=== PATIENT | male | born 1940 | race Caucasian/White ===

== ENCOUNTER → 2016-10-03 | Outpatient (CLI) | payer OTHER ==
[~2016-10-03] MED LIST: FAMO20TA11 PO
[2016-10-03 14:11] LABS: ESTIMATED AVERAGE GLUCOSE 148 mg/dl; HA1C FLAG Normal (Normal)
[2016-10-03 14:19] LABS: CALCIUM 9.9 mg/dl (8.5-10.1)
[2016-10-03 14:23] LABS: BLOOD UREA NITROGEN 21 mg/dl (7-18); BUN/CREATININE RATIO 17.3 (10-20); CARBON DIOXIDE 25 mmol/L (21-32); CHLORIDE 104 mmol/L (98-107); CHOLESTEROL 172 mg/dl (0-200); GLUCOSE 136 mg/dl (70-99); POTASSIUM 4.2 mmol/L (3.5-5.1); SODIUM 140 mmol/L (136-145); TRIGLYCERIDES 179 mg/dl (0-150); VERY LOW DENSITY LIPOPROT CALC 36 mg/dl
[2016-10-03 14:28] LABS: CHOLESTEROL/HDL RATIO 4.2; HDL CHOLESTEROL 41 mg/dl
== END | disposition home or self-care (01) ==
LOC: C.LABSPEC 12:24
PROVIDERS: ATTEND Internal Medicine
DX: Z00.00 Encounter for general adult medical examination without abnormal findings (principal); E11.65 Type 2 diabetes mellitus with hyperglycemia; E78.5 Hyperlipidemia, unspecified

== ENCOUNTER → 2017-04-05 | Outpatient (CLI) | payer OTHER ==
[2017-04-05 13:16] LABS: ESTIMATED AVERAGE GLUCOSE 154 mg/dl; HA1C FLAG Normal (Normal)
[2017-04-05 13:35] LABS: BLOOD UREA NITROGEN 17 mg/dl (7-18); CALCIUM 9.5 mg/dl (8.5-10.1); CARBON DIOXIDE 26 mmol/L (21-32); CHLORIDE 104 mmol/L (98-107); CHOLESTEROL 157 mg/dl (0-200); CREATININE 1.18 mg/dl (0.60-1.40); GLUCOSE 154 mg/dl (70-99); POTASSIUM 4.4 mmol/L (3.5-5.1); SODIUM 138 mmol/L (136-145)
[2017-04-05 13:39] LABS: HDL CHOLESTEROL 39 mg/dl; TRIGLYCERIDES 182 mg/dl (0-150); VERY LOW DENSITY LIPOPROT CALC 36 mg/dl
== END | disposition home or self-care (01) ==
LOC: C.LABSPEC 12:19
PROVIDERS: ATTEND Internal Medicine
DX: E11.9 Type 2 diabetes mellitus without complications (principal); E78.5 Hyperlipidemia, unspecified

== ENCOUNTER → 2017-04-12 | Outpatient (CLI) | payer OTHER ==
[2017-04-12 13:41] LABS: RATIO 51.6 mcg/mg (0-30.0)
== END | disposition home or self-care (01) ==
LOC: C.LABSPEC 12:44
PROVIDERS: ATTEND Internal Medicine
DX: E11.65 Type 2 diabetes mellitus with hyperglycemia (principal)

== ENCOUNTER → 2017-07-14 | Outpatient (CLI) | payer OTHER | END | disposition home or self-care (01) | LOC: C.LABSPEC 12:53 | PROVIDERS: ATTEND Internal Medicine | DX: R30.0 Dysuria (principal) ==

== ENCOUNTER → 2017-09-27 | Outpatient (CLI) | payer OTHER ==
--- NOTE | 2017-09-27 11:18 | DIAGNOSTIC IMAGING REPORT ---
L VENOUS DOPP LOWER EXT UNILAT CLINICAL HISTORY: LT LEG PAIN,SWELLING,R/O DVT pain. Edema. TECHNIQUE: Venous Doppler COMPARISON STUDY: None FINDINGS: The leg is negative for deep venous thrombosis. Venous flow is unremarkable. 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 It is filled with considerable thrombus. Maximum dimensions are approximately 4.6 x 5.5 cm. True luminal dimension at minimum is 1 cm. IMPRESSION: 1. Study is negative for deep venous process. 2. 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 3. It shows considerable thrombus formation within the lumen with a minimal true luminal dimension of 1 cm. The above report was generated using voice recognition software. It may contain grammatical, syntax or spelling errors. Electronically signed by: Gerardo Albert M.D. 09/27/2017 11:17 AM Dictated Date/Time: 09/27/2017 11:13 AM
== END | disposition home or self-care (01) ==
LOC: C.ULTRBC 10:42
PROVIDERS: ATTEND Internal Medicine
DX: M79.605 Pain in left leg (principal); I72.4 Aneurysm of artery of lower extremity

== ENCOUNTER → 2017-10-02 | Outpatient (CLI) | payer OTHER ==
[~2017-10-02] MED LIST changes: +OPTIRAY 320 IV PRN
--- NOTE | 2017-10-02 08:33 | DIAGNOSTIC IMAGING REPORT ---
CT ANGIO AA [facility]MA LE [facility] CT DOSE: 2889.49 mGy.cm CLINICAL HISTORY: popliteal artery aneurysm TECHNIQUE: Unenhanced images were initially acquired. The patient was then scanned in a dynamic helical fashion during intravenous administration 119 cc of Optiray 320. MIP imaging was performed. A dose lowering technique was utilized adhering to the principles of ALARA. COMPARISON STUDY: None. FINDINGS: The lung bases reveal dependent atelectatic changes. There is a 14 mm hypodensity within left hepatic lobe likely representing a cyst. There is a calcified gallstone. No splenic masses are visualized. No pancreatic masses are visualized. No adrenal masses are visualized. No solid renal masses are delineated on this arterial phase study. No renal, ureteral, or bladder calculi are visualized. No adrenal masses are visualized. There is no evidence of bowel obstruction. There is no evidence of free intraperitoneal air. There is colonic diverticulosis. There is a juan mesentery with several borderline enlarged mesenteric lymph nodes. There is a left-sided hydrocele. There is no evidence of abdominal aortic aneurysm or dissection. There are 2 right renal arteries and single left renal artery. There is no evidence of renal artery stenosis. There is no evidence of celiac or superior mesenteric artery stenosis. The inferior mesenteric artery is patent. There is no evidence of common iliac or external iliac artery stenosis. There is no evidence of common femoral artery stenosis. On the right, there is no evidence of superficial femoral artery stenosis. There is no evidence of popliteal artery stenosis. There is three-vessel runoff to the ankle. On the left, there is no evidence of superficial femoral artery stenosis. There is a popliteal artery aneurysm measuring 50 x 49 x 43 mm. The aneurysm is partially thrombosed. The residual lumen measures a maximum of 22 x 16 mm. There is occlusion of the mid to distal posterior tibial artery with reconstitution. There is no evidence of superficial femoral artery stenosis. 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 Electronically signed by: Simone Smith M.D. 10/02/2017 8:31 AM Dictated Date/Time: 10/02/2017 8:21 AM
== END | disposition home or self-care (01) ==
LOC: C.CTS 07:36
PROVIDERS: ATTEND Surgery Vascular Surgery
DX: I72.4 Aneurysm of artery of lower extremity (principal)

== ENCOUNTER → 2017-10-13 | Day surgery (SDC) | payer OTHER ==
[2017-10-09 08:16] VITALS: BMI 29.0
--- NOTE | 2017-10-09 08:48 | PAT Medication Instructions ---
Service Date October 09, 2017. Current Home Medication List Famotidine (Pepcid), 20 MG PO DAILY PRN Metformin Hcl (Glucophage), 500 MG PO QAM Medication Instructions For Your Scheduled Surgery - Hold the following medications the morning of surgery: Metformin Hcl (Glucophage), 500 MG PO QAM - Take the following medications the morning of surgery with a sip of water: Famotidine (Pepcid), 20 MG PO DAILY PRN (if needed) If you have any questions please call us at [phone] or [phone] or [phone]
--- NOTE | 2017-10-09 09:23 | DIAGNOSTIC IMAGING REPORT ---
CHEST 2 VIEWS ROUTINE CLINICAL HISTORY: Preoperative chest COMPARISON STUDY: No previous studies for comparison. FINDINGS: The cardiac and mediastinal contours are normal. There is no evidence of focal pulmonary consolidation. There is no evidence of failure. No pleural effusions are visualized.[ There is ankylosis of the dorsal spine. IMPRESSION: No active disease in the chest. Electronically signed by: Simone Smith M.D. 10/09/2017 9:21 AM Dictated Date/Time: 10/09/2017 9:21 AM
[2017-10-09 10:51] LABS: BASO % 0.3 %; BASO ABS # 0.02 K/uL (0-0.2); EOS % 1.6 %; EOS ABS # 0.11 K/uL (0-0.5); HEMATOCRIT 44.4 % (42-52); HEMOGLOBIN 15.2 g/dL (14.0-18.0); IG# 0.01 K/uL (0.00-0.02); LYMPH % 23.7 %; LYMPH ABS # 1.61 K/uL (1.2-3.4); MEAN CELL VOLUME 89.7 fL (80-100); MEAN CORPUSCULAR HEMOGLOBIN 30.7 pg (25-34); MEAN CORPUSCULAR HGB CONC 34.2 g/dl (32-36); MEAN PLATELET VOLUME 9.4 fL (7.4-10.4); MONO % 7.7 %; MONO ABS # 0.52 K/uL (0.11-0.59); NEUT % 66.6 %; NEUT ABS # 4.52 K/uL (1.4-6.5); PLATELET COUNT 205 K/uL (130-400); RED CELL DISTRIBUTION WIDTH CV 14.1 % (11.5-14.5); RED CELL DISTRIBUTION WIDTH SD 46.1 fL (36.4-46.3); WHITE BLOOD COUNT 6.79 K/uL (4.8-10.8)
[2017-10-09 10:59] LABS: PTT PATIENT 26.6 SECONDS (21.0-31.0)
[2017-10-09 11:07] LABS: CREATININE 1.04 mg/dl (0.60-1.40); POTASSIUM 4.7 mmol/L (3.5-5.1)
[2017-10-13] VITALS (10 sets, daily range): BP systolic 152–178; BP diastolic 84–92; PULSE 56–73; TEMP 36.6–36.8; O2SAT 97–98; Ht 180.3 cm; Wt 95.2 kg
[~2017-10-13] VITALS: Ht 180.3 cm; Wt 95.2 kg
[~2017-10-13] MED LIST changes: +ARISTA ABSORBABLE HEMOSTAT 3GM TOP ONE; +ATROPINE SULFATE 0.1 MG/ML 5ML SYR IV PRN; +CEFAZOLIN 2000MG IV PUSH 15 ML IV SCH; +CLOP1TAB5 PO; +CLOPIDOGREL BISULFATE 75 MG TAB PO ONE; +FENTANYL CITRATE INJ 50 MCG/1 ML 2 ML VIAL IV PRN; +FENTANYL CITRATE INJ 50 MCG/1 ML 2 ML VIAL ONE; +GLC/500 PO; +HEPARIN SOD (PORCINE) 1000 UNIT/ML 10 ML VIAL ONE; +IODIXANOL (VISIPAQUE) 270 MG/ML 150ML IV ONE; +KETOROLAC TROMETHAMINE 30 MG/ML VIAL IV. PRN; +LACTATED RINGER'S 1000ML 1,000 ML IV SCH; +LIDOCAINE HCL 1% 20 ML VIAL SQ ONE; +MIDAZOLAM HCL 1 MG/ML 2ML VIAL ONE; +ONDANSETRON INJ 2 MG/ML 2 ML VIAL IV PRN; -OPTIRAY 320 IV PRN; +OXYCODONE/ACETAMINOPHEN 5-325 TAB PO PRN; +PROPOFOL IV EMULSION 10 MG/ML 20 ML VIAL ONE; +SODIUM CHLORIDE 0.9% 1000ML 1,000 ML IV SCH
--- NOTE | 2017-10-13 05:43 | History and Physical ---
History & Physical Date of Service October 13, 2017. History & Physical CC: Left popliteal artery aneurysm HPI: I had the pleasure of seeing Mr. Mejia for evaluation of his left leg. He is a pleasant 76-year-old gentleman who is retired but according to him works harder now than before. He has developed severe pain in his left lower leg and went to your office. As you know, the ultrasound showed a popliteal artery aneurysm in the left lower extremity. He has no complaints of claudication. 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 He denies any ulcerations in the lower leg. Prior to this, he denies any symptoms of claudication. He also denies any symptoms of cerebrovascular insufficiency. ALLERGIES: None known. MEDICATIONS: Metformin and Pepcid. PAST MEDICAL HISTORY: Positive for diabetes and high blood pressure. PAST SURGICAL HISTORY: Positive for appendectomy. FAMILY HISTORY: Positive for heart disease, cancer, circulatory problems, carotid disease, stroke, kidney disease. SOCIAL HISTORY: Does not smoke, does not drink. REVIEW OF SYSTEMS: Ten systems were reviewed. Other than the HPI complaints, his only other complaint was left joint stiffness and heartburn. PHYSICAL EXAMINATION: The patient is awake, oriented x3. He is in no apparent distress. Normal body habitus. Blood pressure 146/70 on the right, 142/60 on the left. Head and neck within normal limits, no carotid bruits. Lungs are clear. Heart regular rate and rhythm. Abdominal exam is benign. I cannot appreciate any aneurysm or dilatation of the aorta. Femorals are +2 bilaterally. He does have pedal pulses which are easily palpable in both feet. There is good capillary refill in both feet. No ulcerations or severe ischemic changes are noted in either lower extremity. The ultrasound done in the hospital again revealed a popliteal artery aneurysm in the left lower extremity. ASSESSMENT AND PLAN: Left popliteal artery aneurysm. PLAN AND RECOMMENDATION: Patient is admitted for endovascular repair of his popliteal artery aneurysm. I have discussed the risks options and benefits of the procedure with the patient. The patient understands the risks options and benefits and agrees to the procedure.
--- NOTE | 2017-10-13 08:49 | History & Physical Bridge Note ---
H&P Re-Evaluation Bridge Note: I have examined the patient, reviewed the History & Physical and in the interval since the performance of the History & Physical I have noted the following changes of clinical significance: No changes noted
--- NOTE | 2017-10-13 10:24 | [facility] Post Operative Brief Note ---
Immediate Operative Summary Operative Date October 13, 2017. Pre-Operative Diagnosis Left popliteal artery aneurysm Post-Operative Diagnosis Left popliteal artery aneurysm Procedure(s) Performed Endovascular Repair of Left Popliteal Artery Aneurysm Surgeon [place] Hide Inspector And Sorter Surgeon(s) None Estimated Blood Loss 50 Findings Consistent with Post-Op Diagnosis Specimens None Drains None Anesthesia Type MAC Complication(s) none Disposition Accompanied Pt To Recover: no Disposition: Recovery Room / PACU
--- NOTE | 2017-10-13 10:30 | Discharge Instructions ---
Discharge Instructions Date of Service October 13, 2017. Visit Reason for Visit: Left Popliteal Artery Aneurysm Discharge Discharge Diagnosis / Problem: Left popliteal artery aneurysm endovascular repair Discharge Goals Goal(s): Therapeutic intervention Activity Recommendations Activity Limitations: per Instructions/Follow-up section Anesthesia . Post Anesthesia Instructions: If you have had General Anesthesia or IV Sedation: * Do not drive today. * Resume driving when surgeon permits. * Do not make important decisions or sign legal documents today. * Call surgeon for: 1. Temperature elevations greater than 101 degrees F. 2. Uncontrollable pain. 3. Excessive bleeding. 4. Persistent nausea and vomiting. 5. Medication intolerance (nausea, vomiting or rash). * For nausea and vomiting use only clear liquids such as: tea, soda, bouillon until nausea subsides, then gradually increase diet as tolerated. * If you have any concerns or questions, call your surgeon's office. If physician is unavailable and it is an emergency, call 911 or go to the nearest emergency room. . Instructions / Follow-Up Instructions / Follow-Up Call [phone] to schedule a follow up appointment if one not already scheduled. SPECIAL CARE INSTRUCTIONS: Medications: * Continue to take your medications as directed. If you have been given a prescription for Plavix, please fill it immediately and take as directed. Incision Care: * Your puncture site may have some bruising and minor swelling for about one week. * You will have a small dressing covering your puncture site. You may remove the dressing after 24 hours and shower. You may let the warm soapy water run over it, but be sure to dry the puncture site well and keep it dry. * DO NOT IMMERSE THE INCISION IN A TUB/POOL/etc. UNTIL HEALED. * Puncture sites should be kept covered with a band-aid until it begins to heal. Restrictions: * Depending on whether you leg or arm was punctured to access the arteries, you will be required to lay flat, hold your arm still, or both, for about 4 hours after the procedure to prevent bleeding. * Limit your activity for the first 48 hours. You may walk and go up and down steps. Avoid excessive bending or movement at the puncture site. Possible Complications: * Excessive Swelling - after blood flow is improved you may notice increased swelling in the lower legs. This is a normal response. This usually depends on the amount of blockages in the leg, how long they have been there prior to your procedure and how much blood flow was restored. Elevating your legs will help to improve this. Please notify our office ([phone] ) if the swelling does not go away after lying in bed overnight. * Infection/Drainage/Bleeding - Drainage or bleeding from the puncture site should be minimal. If you have excessive bleeding or drainage, call our office ([phone]) right away. * Pain - You may experience some mild pain or soreness at your puncture site. If your pain does not improve, please contact our office ([phone]). Call your doctor and seek emergent treatment if you develop: * Temperature above 101 degrees * Any fever or chills * Any redness or purulent drainage from the puncture site * Any new dusky/blue colored toes or feet with coolness or sharp or aching pain. SKIN IRRITATION: * You may experience some redness and/or swelling in the area where radiation was administered. If any skin irritation occurs, please contact your family physician. FOLLOW UP VISIT: Keep any scheduled doctor appointments. Diet Recommendations Recommended Home Diet: resume previous diet Procedures Procedures Performed: Endovascular Repair of Left Popliteal Artery Aneurysm Pending Studies Studies pending at discharge: no Medical Emergencies . Who to Call and When: Medical Emergencies: If at any time you feel your situation is an emergency, please call 911 immediately. . Non-Emergent Contact Non-Emergency issues call your: Surgeon . . "Provider Documentation" section prepared by Jair Pavon. .
--- NOTE | 2017-10-13 10:43 | [facility] Operative Report ---
Operative Report Operative Date October 13, 2017. Pre-Operative Diagnosis Left popliteal artery aneurysm Post-Operative Diagnosis Left popliteal artery aneurysm Procedure(s) Performed Endovascular Repair of Left Popliteal Artery Aneurysm Surgeon [place] Graduate Research Assistant Surgeon(s) None Estimated Blood Loss 50 Findings Large left popliteal artery aneurysm. No endo-leaks noticed after the stent was placed. Specimens None Drains None Anesthesia Type MAC Complication(s) none Disposition no Recovery Room / PACU Indications This is a 76-year-old gentleman who was found to have left leg pain. Upon exam he was found to have a large left popliteal artery aneurysm. CT scan revealed the aneurysm could be repaired by endovascular means.I have discussed the risks options and benefits of the procedure with the patient. The patient understands the risks options and benefits and agrees to the procedure. Description of Procedure The patient was taken to the angiogram suite and placed in the supine position. After both groins were prepped and draped in a sterile manner local anesthetic was administered to the right groin. A percutaneous puncture was made of the right common femoral artery. A 4 Cymraes sheath was inserted. Injection confirmed the puncture to be in the common femoral artery anteriorly in the right side. 2 Perclose devices were then placed without difficulty. The 4 Cymraes sheath was exchanged to a 9 Cymraes sheath. Left groin was then anesthetized. A percutaneous puncture was made of the left common femoral artery and a 4 Cymraes sheath inserted. Using 035 wire and a rim catheter the left side was cannulated from the right groin. The rim catheter was passed down to the superficial femoral artery. Wire was removed and angiogram was performed. This showed the popliteal artery aneurysm. There is good three- vessel runoff beyond. We then exchanged the rim catheter over an 035 wire to a Quick cross. The Quick cross catheter was passed down through the aneurysm. The wire was removed. Hand-injection showed the quick cross to be true lumen in the distal popliteal. We then exchanged the Quick cross with an 018 wire. The V 18 wire was then passed down into the anterior tibial artery. An 8 x 10 Viabahn stent was then inserted. It was tracked down to the popliteal aneurysm. It went into the aneurysm short distance but cannot track any further. The stent was then removed. We replaced the Quick cross exchanged over a wire to an 035 wire. We then exchanged the right groin 9 Cymraes sheath to a 9 Cymraes [place] long sheath. Once this was done the Quick cross was reinserted and the 035 wire was then exchanged for an 018 and a Quick cross was removed. The 8 x 10 Viabahn stent was then passed down through the popliteal artery without any difficulty. It was then deployed in the distal popliteal artery. The proximal end deployed just above the aneurysm sac. We then inserted a 9 x 75 mm Viabahn stent . We overlapped with the previous placed Viabahn stent and started the new stent just beyond the curve in the previously placed Viabahn stent . This deployed without difficulty. The overlap and the proximal portion of the Viabahn stent end were then ballooned with an 9 x 2 balloon. Completion angiogram showed good flow through the popliteal artery stent. There is no evidence of endoleak's and no filling the aneurysm sac. The 9 Cymraes sheath was then pulled. The puncture site was then closed using the Perclose devices. Adequate hemostasis was noted. We then used the star close device likely to close the puncture in the left groin. Adequate hemostasis was noted also the left groin. Sterile dressings were applied to both groins. The patient left the operation room in satisfactory condition and tolerated the procedure well. All needle and sponge counts were correct at the end of the procedure. I attest to the content of the Intraoperative Record and any orders documented therein. Any exceptions are noted below.
--- NOTE | 2017-10-13 11:46 | Anesthesiology Progress Note ---
Anesthesia Post Op Note Date & Time October 13, 2017 at 11:46 Vital Signs Pain Intensity: 0 Vital Signs Past 12 Hours Date Time Temp Pulse Resp B/P (MAP) Pulse Ox O2 Delivery O2 Flow Rate FiO2 10/13/17 11:10 36.6 73 16 155/84 97 Room Air 10/13/17 11:00 36.4 73 16 166/88 96 Room Air 10/13/17 10:50 69 16 134/89 98 Room Air 10/13/17 10:40 80 16 151/89 98 Oxymask 10 10/13/17 10:34 36.6 84 16 147/99 100 Oxymask 10 10/13/17 07:25 36.8 68 20 168/91 98 Room Air 154/84 Notes Mental Status: alert / awake / arousable, participated in evaluation Pt Amnestic to Procedure: Yes Nausea / Vomiting: adequately controlled Pain: adequately controlled Airway Patency, RR, SpO2: stable & adequate BP & HR: stable & adequate Hydration State: stable & adequate Anesthetic Complications: no major complications apparent
== END | disposition home or self-care (01) ==
LOC: C.ACU 06:36
PROVIDERS: ATTEND Surgery Vascular Surgery
DX: I72.4 Aneurysm of artery of lower extremity (principal); E11.9 Type 2 diabetes mellitus without complications; Z90.49 Acquired absence of other specified parts of digestive tract; Z82.49 Family history of ischemic heart disease and other diseases of the circulatory system; Z82.3 Family history of stroke; Z84.1 Family history of disorders of kidney and ureter

== ENCOUNTER 2018-04-25 16:20 | Inpatient (IN) ==
[2018-04-25] MEDS ORDERED: Heparin IV Standard *NO* Bolus ONE (16:40)
--- NOTE | 2018-04-25 16:42 | Emergency Department Note ---
Entered by Marivel Birmingham acting as a scribe for Kel Boston DO History of Present Illness General Chief complaint: Abnormal Labs/Diagnostic Testing Stated complaint: OCCLUSION OF MID TO DISTAL L FEM ARTERY Time Seen by Provider: 04/25/18 16:28 Source: patient History of Present Illness Provider complaint: abnormal imaging Onset (ago): hour(s) (today) Location: lower extremity and left Maximum Pain Intensity: 0 Quality: + other (arterial occlusion) Associated symptoms: + denies other symptoms (denies abdominal pain); no chest pain and no nausea/vomiting The patient is a 77 year old male who presents to the Emergency Room with abnormal imaging today. The patient states that he had severe pain in his leg 4 days ago and had an ultrasound done today that showed an aterial occlusion of his left leg. He denies having nausea, vomiting, chest pain, and abdominal pain. The patient denies a history of a stroke. He states that he was on blood thinners but was taken off of them about 1 month ago. Home Medications Home Medications Medication Instructions Recorded Confirmed Type Famotidine (Pepcid) 20 mg PO DAILY PRN #0 tab 12/20/12 04/25/18 History METFORMIN HCL (GLUCOPHAGE) 500 mg PO QAM #0 tab 10/09/17 04/25/18 History CLOPIDOGREL BISULFATE (PLAVIX) 75 mg PO DAILY #30 tab 10/13/17 04/25/18 Rx Allergies Allergy/AdvReac Type Severity Reaction Status Date / Time No Known Allergies Allergy Unverified 10/13/17 07:55 Past Med/Surg History Medical History Aneurysm of left popliteal artery (Resolved) Diabetes mellitus, type 2 Family History Other No pertinent family history Social History Current Living Situation: Spouse Other Information That Helps Us Care for You: No Feels Safe at Home: Yes Safety Concerns: Feels Safe At This Time Smoking Status: Never smoker Hx Alcohol Use: No Hx Substance Use: No Beliefs That Will Affect Care: None Preferred Language: Bengali Communication Ability: Effective Review of Systems See HPI for pertinent positives & negatives. and A total of 10 systems reviewed and were otherwise negative Physical Exam Vital Signs Vital Signs - 24 hr 04/25/18 16:25 04/25/18 18:02 04/25/18 18:06 Temperature 36.8 C Temperature Source Oral Sepsis Recent Fever Within 48 Hours No Sepsis Action Taken by Nursing No Action Required Pulse Rate 48 L 85 Pulse Rate [Apical] 82 Pulse Rate [Left Finger] Respiratory Rate 20 20 20 Respiratory Effort / Characteristics Non-Labored Respiratory Depth Normal Normal Respiratory Pattern Blood Pressure 159/73 H 151/99 H Blood Pressure [Left Arm] 151/99 H Blood Pressure Mean 101 Blood Pressure Mean [Left Arm] 116 Blood Pressure Position [Left Arm] Pulse Oximetry 96 95 95 Oxygen Delivery Method Room Air Room Air Room Air 04/25/18 18:44 04/25/18 19:40 04/25/18 21:35 Temperature 36.4 C L 36.4 C L 36.5 C Temperature Source Oral Oral Oral Sepsis Recent Fever Within 48 Hours Sepsis Action Taken by Nursing Pulse Rate Pulse Rate [Apical] Pulse Rate [Left Finger] 71 88 71 Respiratory Rate 12 16 Respiratory Effort / Characteristics Non-Labored Spontaneous Respiratory Depth Normal Respiratory Pattern Regular Blood Pressure Blood Pressure [Left Arm] 171/94 H 188/106 H 188/74 H Blood Pressure Mean Blood Pressure Mean [Left Arm] 119 133 112 Blood Pressure Position [Left Arm] Sitting Pulse Oximetry 98 96 96 Oxygen Delivery Method Room Air Room Air Room Air GENERAL: Patient is awake alert in no acute distress patient is resting comfortably and showing no signs of anxiety EYES: The conjunctivae are clear. The pupils are round and reactive. EARS, NOSE, MOUTH AND THROAT: The nose is without any evidence of any deformity. Mucous membranes are moist tongue is midline NECK: The neck is nontender and supple. RESPIRATORY: Normal respiratory effort is noted there is no evidence of wheezing rhonchi or rales CARDIOVASCULAR: Regular rate and rhythm noted there no murmurs rubs or gallops normal S1 normal S2 GASTROINTESTINAL: The abdomen is soft. Bowel sounds are present in all quadrants. Abdomen is nontender MUSCULOSKELETAL/EXTREMITIES: There is no evidence of gross deformity full range of motion is noted in the hips and shoulders SKIN: There is no pedal edema appreciated. There is no pulses to palpation in the left foot. Left foot is cold compared to the right foot. NEUROLOGIC: Patient is awake alert and oriented x3. Course 1635: Past medical records reviewed. The patient was evaluated in room B11B, and a complete history and physical examination were performed. 1642: I discussed the patient's case with Dr. Pavon-Vascular Surgery who will admit the patient. Consultations Consultation #1: Dr. Pavon-Vascular Surgery Time: 16:42 Administered Medications Heparin Sodium/Dextrose (Heparin Sodium/Dextrose) 25,000 units in 500 mls @ 30 mls/hr IV .[id number] KIRBY; Protocol Stop: 05/25/18 19:14 Last Admin: 04/25/18 18:20 Dose: 1,500 units/hr, 30 mls/hr Discontinued Medications Heparin Sodium/Dextrose () 1 ea N/A ONE ONE; Protocol Stop: 04/25/18 16:41 Last Admin: 04/25/18 20:10 Dose: Not Given Heparin Sodium/Dextrose (Heparin Sodium/Dextrose) Confirm Administered Dose 25, 000 units IV .STK-MED ONE Stop: 04/25/18 17:50 Last Admin: 04/25/18 17:51 Dose: 30 ml Insulin Aspart (Novolog Flexpen) 0 units SC TODAY@2100 ONE; Protocol Stop: 04/25/18 21:01 Last Admin: 04/25/18 20:54 Dose: 1 units Medical Decision Making Differential Diagnosis Differential diagnosis: Etiologies such as DVT, vascular ischemia, radiculopathy, fracture, hematoma/ contusion, myositis, abscess, septic arthritis cellulitis, joint effusion, trauma, lymphedema, idiopathic, CHF, as well as others were entertained. Medical Records Attestation: I reviewed the patient's medical records. Home Medications Current Medication List: was personally reviewed by me Laboratory Data Attestation: I reviewed the patient's lab results. Result diagrams: 04/25/18 17:05 04/25/18 17:05 Lab Results 04/25/18 04/25/18 04/25/18 Range/Units 17:05 17:05 17:05 WBC 8.41 (4.8-10.8) K/uL RBC 5.05 (4.7-6.1) M/uL Hgb 15.5 (14.0-18.0) g/dL Hct 45.1 (42-52) % MCV 89.3 (80-100) fL MCH 30.7 (25-34) pg MCHC 34.4 (32-36) g/dL RDW Std Deviation 46.2 (36.4-46.3) fL RDW Coeff of Maite 14.2 (11.5-14.5) % Plt Count 186 (130-400) K/uL MPV 10.1 (7.4-10.4) fL Immature Gran % (Auto) 0.2 % Neut % (Auto) 66.7 % Lymph % (Auto) 22.8 % Mccormick % (Auto) 8.6 % Eos % (Auto) 1.5 % Baso % (Auto) 0.2 % Immature Gran # (Auto) 0.02 (0.00-0.02) K/uL Neut # (Auto) 5.60 (1.4-6.5) K/uL Lymph # (Auto) 1.92 (1.2-3.4) K/uL Mccormick # (Auto) 0.72 H (0.11-0.59) K/uL Eos # (Auto) 0.13 (0-0.5) K/uL Baso # (Auto) 0.02 (0-0.2) K/uL PT 10.4 (9.0-12.0) Seconds INR 1.0 (0.9-1.1) APTT 28.4 (21.0-31.0) Seconds PTT Ratio 1.1 Sodium 138 (136-145) mmol/L Potassium 3.9 (3.5-5.1) mmol/L Chloride 106 (98-107) mmol/L Carbon Dioxide 25 (21-32) mmol/L Anion Gap 7.0 (3-11) BUN 20 H (7-18) mg/dl Creatinine 1.04 (0.6-1.4) mg/dl Est Cr Clr Drug Dosing 71.8 ml/min Est GFR ( Amer) 80.5 Est GFR (Non-Af Amer) 69.4 BUN/Creatinine Ratio 19.5 (10-20) Glucose 124 H (70-99) mg/dl POC Glucose (70-99) Calcium 9.1 (8.5-10.1) mg/dl Magnesium 2.2 (1.8-2.4) mg/dl Total Bilirubin 0.6 (0.1-1) mg/dl AST 16 (15-37) U/L ALT 19 (12-78) U/L Alkaline Phosphatase 111 (45-117) U/L Troponin I < 0.015 (0-0.045) ng/ml Total Protein 7.5 (6.4-8.2) gm/dl Albumin 3.9 (3.4-5.0) gm/dl Globulin 3.6 (2.5-4.0) gm/dl Albumin/Globulin Ratio 1.1 (0.9-2) TSH 2.810 (0.300-4.500) uIu/ml Urine Color Urine Appearance (Clear) Urine pH (4.5-7.5) Ur Specific [place] (1.000-1.030) Urine Protein (Negative) Urine Glucose (UA) (Negative) Urine Ketones (Negative) Urine Blood (Negative) Urine Nitrite (Negative) Urine Bilirubin (Negative) Urine Urobilinogen (Negative) Ur Leukocyte Esterase (Negative) 04/25/18 04/25/18 04/25/18 Range/Units 17:30 19:31 20:47 WBC (4.8-10.8) K/uL RBC (4.7-6.1) M/uL Hgb (14.0-18.0) g/dL Hct (42-52) % MCV (80-100) fL MCH (25-34) pg MCHC (32-36) g/dL RDW Std Deviation (36.4-46.3) fL RDW Coeff of Maite (11.5-14.5) % Plt Count (130-400) K/uL MPV (7.4-10.4) fL Immature Gran % (Auto) % Neut % (Auto) % Lymph % (Auto) % Mccormick % (Auto) % Eos % (Auto) % Baso % (Auto) % Immature Gran # (Auto) (0.00-0.02) K/uL Neut # (Auto) (1.4-6.5) K/uL Lymph # (Auto) (1.2-3.4) K/uL Mccormick # (Auto) (0.11-0.59) K/uL Eos # (Auto) (0-0.5) K/uL Baso # (Auto) (0-0.2) K/uL PT (9.0-12.0) Seconds INR (0.9-1.1) APTT (21.0-31.0) Seconds PTT Ratio Sodium (136-145) mmol/L Potassium (3.5-5.1) mmol/L Chloride (98-107) mmol/L Carbon Dioxide (21-32) mmol/L Anion Gap (3-11) BUN (7-18) mg/dl Creatinine (0.6-1.4) mg/dl Est Cr Clr Drug Dosing ml/min Est GFR ( Amer) Est GFR (Non-Af Amer) BUN/Creatinine Ratio (10-20) Glucose (70-99) mg/dl POC Glucose 143 H 155 H (70-99) Calcium (8.5-10.1) mg/dl Magnesium (1.8-2.4) mg/dl Total Bilirubin (0.1-1) mg/dl AST (15-37) U/L ALT (12-78) U/L Alkaline Phosphatase (45-117) U/L Troponin I (0-0.045) ng/ml Total Protein (6.4-8.2) gm/dl Albumin (3.4-5.0) gm/dl Globulin (2.5-4.0) gm/dl Albumin/Globulin Ratio (0.9-2) TSH (0.300-4.500) uIu/ml Urine Color Yellow Urine Appearance Clear (Clear) Urine pH 5.0 (4.5-7.5) Ur Specific [place] 1.010 (1.000-1.030) Urine Protein Negative (Negative) Urine Glucose (UA) Negative (Negative) Urine Ketones Negative (Negative) Urine Blood Negative (Negative) Urine Nitrite Negative (Negative) Urine Bilirubin Negative (Negative) Urine Urobilinogen Negative (Negative) Ur Leukocyte Esterase Negative (Negative) Imaging Data Radiologist's Impression: Radiology results as stated below per my review and the radiologist's interpretation: XR chest 1V portable CLINICAL HISTORY: weakness dyspnea COMPARISON STUDY: No previous studies for comparison. FINDINGS: The bones soft tissues and hemidiaphragms are normal. The cardiomediastinal silhouette is normal. The lungs are clear. The pulmonary vasculature is normal. IMPRESSION: Negative chest. The above report was generated using voice recognition software. It may contain grammatical, syntax or spelling errors. Electronically signed by: Gerardo Albert M.D. 04/25/2018 5:24 PM ECG Data Attestation: I personally reviewed and interpreted this ECG as follows: Indication: weakness Rate (beats per minute): 87 Rhythm: sinus rhythm Findings: + PAC and + PVC; no ST depression and no ST elevation Comparison ECG Date: from (10/09/17) Change: the following changes noted (ectopy is new otherwise no change ) Blood Pressure Blood Pressure Findings: Elevated blood pressure Blood Pressure Disposition: further management by hospitalist JESUS Elizondo The patient is a 77-year-old male who started noticing pain in his lower extremity on Monday. The patient has a history of a graft in his left leg artery. The patient was seen by his primary care physician and had an outpatient arterial Doppler obtained. The report was sent to the primary care physician and the patient was sent to the emergency department for further evaluation. The patient was found to have an acute arterial occlusion. He does have a history of a bypass in this leg. The patient was started on heparin in the emergency department. I discussed the patient's laboratory results with him. I also discussed his case with his primary vascular surgeon. The patient was reevaluated multiple times. The patient was to be admitted by his primary vascular specialist. Impression & Plan Acute occlusion of artery Critical Care Time I have personally spent greater than 35 minutes of critical care time in the direct management of this patient. This includes bedside care, interpretation of diagnostic studies, and testing, discussion with consultants, patient, and family members, and other required patient management activities. This 35 minutes is in excess of all separately billable procedures. Critical Care Time: Yes Total Critical Care Time: 35 Discharge Plan Visit Data *Final* Discharge Date/Time: 04/25/18 18:06 Chief Complaint: Abnormal Labs/Diagnostic Testing Stated Complaint: OCCLUSION OF MID TO DISTAL L FEM ARTERY ED Provider: Kel Boston Discharge Problem: Acute occlusion of artery Patient Disposition: Admitted As Inpatient Discharge Instructions Interventions: ED Discharge Assessment Last Done: 04/25/18 18:06 The scribe's documentation has been prepared under my direction and personally reviewed by me in its entirety. I confirm that the note above accurately reflects all work, treatment, procedures, and medical decision making performed by me.
[2018-04-25] MEDS ORDERED: OXYCODONE/ACETAMINOPHEN 5mg/325mg TAB PO PRN (17:02)
[2018-04-25] MEDS ORDERED: MoRPHine SULFATE 4 MG/ML 1 ML CARP\\VIAL IV PRN (17:02)
[2018-04-25] MEDS ORDERED: ACETAMINOPHEN 325 MG TAB PO PRN (17:02)
--- NOTE | 2018-04-25 17:26 | XRay Report ---
XR chest 1V portable CLINICAL HISTORY: weakness dyspnea COMPARISON STUDY: No previous studies for comparison. FINDINGS: The bones soft tissues and hemidiaphragms are normal. The cardiomediastinal silhouette is n ormal. The lungs are clear. The pulmonary vasculature is normal. IMPRESSION: Negative chest. The above report was generated using voice recognition software. It may contain grammatical, syntax or spelling errors. Electronically signed by: Gerardo Albert M.D. 04/25/2018 5:24 PM
[2018-04-25 17:27] LABS: Basophils # (auto) 0.02 K/uL (0-0.2); Basophils % (auto) 0.2 %; Eosinophils # (auto) 0.13 K/uL (0-0.5); Eosinophils % (auto) 1.5 %; Hematocrit (blood only) 45.1 % (42-52); Hemoglobin 15.5 g/dL (14.0-18.0); Immature Granulocytes # (auto) 0.02 K/uL (0.00-0.02); Immature Granulocytes % (auto) 0.2 %; Lymphocytes # (auto) 1.92 K/uL (1.2-3.4); Lymphocytes % (auto) 22.8 %; Mean Corpuscular Hgb Conc 34.4 g/dL (32-36); Mean Corpuscular Volume 89.3 fL (80-100); Mean Platelet Volume 10.1 fL (7.4-10.4); Monocytes # (auto) 0.72 K/uL (0.11-0.59); Monocytes % (auto) 8.6 %; Neutrophils % (auto) 66.7 %; Platelet Count 186 K/uL (130-400); RDW Coefficient of Variation 14.2 % (11.5-14.5); RDW Standard Deviation 46.2 fL (36.4-46.3); Red Blood Count 5.05 M/uL (4.7-6.1); White Blood Count 8.41 K/uL (4.8-10.8)
[2018-04-25 17:40] LABS: Partial Thromboplastin Ratio 1.1; Partial Thromboplastin Time 28.4 Seconds (21.0-31.0); Prothrombin Time 10.4 Seconds (9.0-12.0)
[2018-04-25 17:45] LABS: Alanine Aminotransferase 19 U/L (12-78); Albumin Level 3.9 gm/dl (3.4-5.0); Aspartate Aminotransferase 16 U/L (15-37); BUN Creatinine Ratio 19.5 (10-20); Blood Urea Nitrogen 20 mg/dl (7-18); Calcium 9.1 mg/dl (8.5-10.1); Carbon Dioxide 25 mmol/L (21-32); Chloride 106 mmol/L (98-107); Creatinine Clr Calc Pharmacy 71.8 ml/min; Est GFR (African American) 80.5; Est GFR (Non-African American) 69.4; Glucose 124 mg/dl (70-99); Magnesium 2.2 mg/dl (1.8-2.4); Potassium 3.9 mmol/L (3.5-5.1); Sodium 138 mmol/L (136-145)
[2018-04-25] MEDS ORDERED: HEPARIN 25000 UNIT/500 ML D5W IV ONE (17:49)
[2018-04-25 17:51] LABS: Appearance Urine Clear (Clear); Bilirubin Urine Negative (Negative); Color Urine Yellow; Glucose Urine UA Negative (Negative); Ketones Urine Negative (Negative); Leukocyte Esterase Urine Negative (Negative); Nitrite Urine Negative (Negative); Protein Urine Negative (Negative); Urobilinogen Urine Negative (Negative)
[2018-04-25 17:56] LABS: Albumin Globulin Ratio 1.1 (0.9-2); Alkaline Phosphatase 111 U/L (45-117); Bilirubin,Total 0.6 mg/dl (0.1-1); Globulin 3.6 gm/dl (2.5-4.0); Total Protein 7.5 gm/dl (6.4-8.2); Troponin I < 0.015 ng/ml (0-0.045)
[2018-04-25] MEDS: HEPARIN SODIUM/DEXTROSE 25,000 UNITS/500 ML BAG IV SCH (18:20)
[2018-04-25] MEDS ORDERED: PHARMACY GLYCEMIC MGMT CONSULT PRN (19:08)
[2018-04-25] MEDS ORDERED: CARBOHYDRATES FOR HYPOGLYCEMIA PO PRN (19:22)
[2018-04-25] MEDS ORDERED: GLUCAGON FOR INJ 1 MG VIAL IM PRN (19:22)
[2018-04-25] MEDS ORDERED: GLUCOSE 10 TABS/TUBE PO PRN (19:22)
[2018-04-25] MEDS ORDERED: GLUCOSE 40% GEL 15 GM TUBE PO PRN (19:22)
[2018-04-25] MEDS ORDERED: DEXTROSE 50% 50 ML SYRINGE IV PRN (19:22)
[2018-04-25] MEDS ORDERED: INSULIN ASPART 100 UNITS/ML 3 ML PEN SC ONE (21:00)
[2018-04-26] LABS: Partial Thromboplastin Time 51.5 Seconds (21.0-31.0)
[2018-04-26] MEDS: INSULIN ASPART 100 UNITS/ML 3 ML PEN SC SCH ×5 (00:39→20:29)
[2018-04-26] MEDS ORDERED: CEFAZOLIN 2000MG 2,000 MG/15 ML SYR IV SCH (06:00)
[2018-04-26] MEDS ORDERED: CEFAZOLIN 1000MG 1,000 MG/7.5 ML SYR IV SCH (06:00)
[2018-04-26] MEDS ORDERED: SODIUM CHLORIDE 0.9% 1000ML 1,000 ML IV SCH (06:00)
--- NOTE | 2018-04-26 06:05 | History & Physical Report ---
Date of Service April 25, 2018 Assessment & Plan (1) Left popliteal artery occlusion: Patient will undergo thrombectomy with arteriography of the left lower extremity and possible intervention or bypass. I have discussed the risks options and benefits of the procedure with the patient. The patient understands the risks options and benefits and agrees to the procedure. History of Present Illness Chief Complaint: Left leg pain Primary Care Provider: Tonny Khan MD Patient is a 77 y/o white male who had a left popliteal stent for a popliteal aneurysm done in the past. He developed sudden onset of left calf pain 4 days prior to this. It lasted a short time then resolved. He now has claudication and a cold feeling foot with a slight numb feeling. He denies rest pain. He does state that the left foot is paler than the right. He denies chest pain or any palpatations. USN done showed an occluded distal SFA and popliteal with anterior tibial runoff. Allergies Allergy/AdvReac Type Severity Reaction Status Date / Time No Known Allergies Allergy Unverified 10/13/17 07:55 Home Medications Home Medications Medication Instructions Recorded Confirmed Type Famotidine (Pepcid) 20 mg PO DAILY PRN #0 tab 12/20/12 04/25/18 History METFORMIN HCL (GLUCOPHAGE) 500 mg PO QAM #0 tab 10/09/17 04/25/18 History CLOPIDOGREL BISULFATE (PLAVIX) 75 mg PO DAILY #30 tab 10/13/17 04/25/18 Rx Past Med/Surg History Medical History Aneurysm of left popliteal artery (Resolved) Diabetes mellitus, type 2 Family History Other No pertinent family history Social History Current Living Situation: Spouse Other Information That Helps Us Care for You: No Feels Safe at Home: Yes Safety Concerns: Feels Safe At This Time Smoking Status: Never smoker Hx Alcohol Use: No Hx Substance Use: No Beliefs That Will Affect Care: None Preferred Language: Swedish Communication Ability: Effective Review of Systems All systems reviewed & are unremarkable except as noted in HPI & below Respiratory: no cough, no chest congestion, no dyspnea, no dyspnea on exertion and no pain on inspiration Cardiovascular: + calf pain (saturday) and + claudication; no chest pain, no chest pain at rest, no chest pain with activity, no dyspnea and no edema Gastrointestinal: no abdominal pain, no bloating, no nausea and no vomiting Musculoskeletal: no muscle weakness Integumentary: no wounds and no unusual bruising Neurologic: no gait abnormality, no localized weakness, no paralysis, no loss of sensation, no numbness, no paresthesia, no radiating pain and no restless legs Psychiatric: no anxiety and no confusion Endocrine: no fatigue Hematologic / Lymphatic: no easy bleeding Allergy / Immunological: as per Subjective / HPI Physical Exam 2 Vital Signs (Past 24 Hours): Last Vital Signs Temp 36.7 C 04/25/18 23:24 Pulse 67 04/25/18 23:24 Resp 18 04/25/18 23:24 BP 144/93 H 04/25/18 23:24 Pulse Ox 96 04/25/18 23:24 Constitutional: WD/WN, vitals as above Neck: trachea midline; neck not short Respiratory: normal respiratory effort, lungs clear to auscultation normal respiratory effort; no respiratory distress Cardiovascular: Rate/Rhythm: regular rate and regular rhythm Vessels: femoral pulses present, posterior tibial pulses present (none on left, palp on right), dorsalis pedis pulses present (none on left, palpable on right) and radial pulses present; no carotid bruit Extremities: normal capillary refill (decreased on left); no edema Gastrointestinal (Abdomen): Inspection/Auscultation: abdomen normal to inspection; abdomen not distended Percussion/Palpation: abdomen soft; abdomen nontender Musculoskeletal: Head/Neck/Chest: normocephalic Extremities: extremities normal to inspection Skin: no ulcers and no wound Neurologic: CN's II-XI intact bilaterally and moves all extremities; no focal motor deficits Speech / Cognition: normal speech Motor/Sensory: normal movement Psychiatric: Orientation: alert and oriented x 3 Lymphatic: no lymphedema
[2018-04-26] MEDS ORDERED: MIDAZOLAM HCL 1 MG/ML 2ML VIAL ONE (07:02)
[2018-04-26] MEDS ORDERED: PROPOFOL IV EMULSION 10 MG/ML 20 ML VIAL IV ONE ×2 (07:02→11:20)
[2018-04-26] MEDS ORDERED: fentaNYL citrate 100 MCG/2 ML VIAL ONE ×2 (07:02→11:18)
[2018-04-26] MEDS ORDERED: LIDOCAINE HCL 2% 2 ML VIAL/AMP(20MG/ML) INFIL ONE (07:02)
--- NOTE | 2018-04-26 08:46 | History & Physical Bridge Note ---
Date of Service April 26, 2018 History & Physical Bridge Note I have examined the patient, reviewed the History & Physical and in the interval since the performance of the History & Physical I have noted the following changes of clinical significance: no changes noted
--- NOTE | 2018-04-26 08:48 | Anesthesiology Consultation ---
Date of Service April 26, 2018 Assessment & Plan (1) Encounter for pre-operative examination: Chart Review Chart Review: Acceptable Risk for Surgery and Patient NOT seen in Pre Admission Testing Consults Requested none NPO Date Last Intake of Fluids: 04/25/18 Time Last Intake of Fluids: 22:00 Date Last Intake of Solids: 04/25/18 Time Last Intake of Solids: 18:30 History Surgery Operation Date: 04/26/18 08:00 Proposed Procedures p Left Lower Extremity Thrombectomy, - Jair Pavon MD s Angiogram with Possible Intervention - Jair Pavon MD Height/Weight Height: 5 ft 11 in Weight: 93.6 kg Allergies Allergy/AdvReac Type Severity Reaction Status Date / Time No Known Allergies Allergy Unverified 10/13/17 07:55 Medications Home Medications Medication Instructions Recorded Confirmed Last Taken Famotidine (Pepcid) 20 mg PO DAILY PRN #0 tab 12/20/12 04/25/18 04/25/18 20mg METFORMIN HCL (GLUCOPHAGE) 500 mg PO QAM #0 tab 10/09/17 04/25/18 04/25/18 500mg CLOPIDOGREL BISULFATE (PLAVIX) 75 mg PO DAILY #30 tab 10/13/17 04/25/18 2 Months Ago ~02/23/18 Active Medications Generic Name Dose Route Start Last Admin Trade Name Freq PRN Reason Stop Dose Admin Heparin Sodium/Dextrose 25,000 units in 500 mls @ 30 mls/hr 04/25/18 19:15 00:55 Heparin Sodium/Dextrose IV 05/25/18 19:14 1,500 units/hr .[id number] KIRBY 30 mls/hr Titration Protocol 1,500 UNITS/HR Sodium Chloride 1,000 mls @ 100 mls/hr 04/26/18 06:00 04/26/18 06:27 Nss 1000ml IV 04/26/18 15:59 100 mls/hr .Q10H KIRBY Administration Insulin Aspart 0 units 04/26/18 00:00 04/26/18 06:40 Novolog Flexpen SC 05/26/18 00:00 Not Given Q6 KIRBY Protocol Beta Cole Beta Cole Taken Within 24 Hours: No Past Medical History Medical History Aneurysm of left popliteal artery (Resolved) Diabetes mellitus, type 2 PVD (peripheral vascular disease) Popliteal artery aneurysm Endovascular repair MAC. 09/2017 Past Family History Family History Other No pertinent family history Past Surgical History Surgical History H/O colonoscopy Past Anesthesia History No Hx of Anesthesia Complications History of PONV No Motion Sickness Screening History of Motion Sickness: No Social History Smoking Status: Never smoker Hx Alcohol Use: No Hx Substance Use: No Exercise / Class Metabolic Activity II 4-5 Yardwork/Stairs/Walk up hill Physical Exam Vital Signs Last Vital Signs Temp 36.9 C 04/26/18 07:55 Pulse 62 04/26/18 07:55 Resp 20 04/26/18 07:55 BP 142/89 H 04/26/18 07:55 Pulse Ox 97 04/26/18 07:55 Testing Electrocardiogram ecg 09/2017. sinus lana. hr 54 Laboratory Results 04/25/18 17:05 PT 10.4 Seconds (9.0-12.0) 04/25/18 17:05 INR 1.0 (0.9-1.1) 04/25/18 17:05 APTT 51.5 Seconds (21.0-31.0) H* 04/25/18 23:27 Urine Color Yellow 04/25/18 17:30 Urine Appearance Clear (Clear) 04/25/18 17:30 Urine pH 5.0 (4.5-7.5) 04/25/18 17:30 Ur Specific Cost 1.010 (1.000-1.030) 04/25/18 17:30 Urine Protein Negative (Negative) 04/25/18 17:30 Urine Glucose (UA) Negative (Negative) 04/25/18 17:30 Urine Ketones Negative (Negative) 04/25/18 17:30 Urine Nitrite Negative (Negative) 04/25/18 17:30 Ur Leukocyte Esterase Negative (Negative) 04/25/18 17:30 04/26/18 04/26/18 04/25/18 07:00 06:18 23:56 POC Glucose 138 H 132 H 125 H
--- NOTE | 2018-04-26 08:50 | Pharmacy Report ---
Glycemic Control Consultation - Date of Service April 26, 2018 - Scope Scope: Glycemic Pharmacist consulted by Dr [] on [date] for glycemic control and to write orders per [facility] inpatient glycemic control protocol - Objective Weight: 93.6 kg Accuchecks BSG (last 24hrs): 04/25/18 04/25/18 04/25/18 17:05 19:31 20:47 Glucose 124 H POC Glucose 143 H 155 H 04/25/18 04/26/18 04/26/18 23:56 06:18 07:00 Glucose POC Glucose 125 H 132 H 138 H Laboratory Data (last 24hrs): 04/25/18 17:05 Potassium 3.9 Carbon Dioxide 25 Anion Gap 7.0 Creatinine 1.04 Est Cr Clr Drug Dosing 71.8 - Recent Pertinent Medications Outpatient Anti-diabetic Regimen: * metformin 500 mg in the morning * A1c = 6.8 % 04/18/18 The patient is currently receiving: * Basal insulin: Lantus -- units every -- hours * Correctional Insulin: Novolog Correction per scale ACHS Goal Range: Low 110 mg/dL - High 140 mg/dL Correction Factor: 25 mg/dL/unit * Prandial insulin: Per carb ratio of 1 unit per -- grams CHO consumed Risk Factors for Insulin Resistance: * Diet: NPO - Assessment & Plan Assessment & Plan: ASSESSMENT: * Ms Mejia is a 77 y/o M with a PMH of well controlled T2DM who presents with calf pain. He was diagnosed with an artery occlusion and will undergo a thrombectomy today. He is currently NPO. Patient was started on weight-based stress of 2 Novolog coverage for yesterday evening. Will provide Lantus 10 units if blood sugar this evening over 160 mg/dL. * Pt is maintained on oral antidiabetic agents as an outpatient * Oral agents are not recommended for inpatient use d/t drug interactions, changing PO intake, and difficulty titrating for acute hyper/hypoglycemia. ADA recommends re-initiating outpatient oral agents 1-2 days prior to discharge if/ when appropriate if they were held on admission. * Will hold oral agents for admission and utilize SQ basal bolus insulin regimen which is the recommended regimen for inpatient glycemic control. * Will initiate weight based insulin dosing for insulin hilaria patient and titrate based on BSG trends. PLAN FOR INPATIENT GLYCEMIC CONTROL: * Holding outpatient oral diabetes medications * Basal insulin * Lantus 10 units SQ HS if blood sugar over 160 mg/dL * Bolus insulin * NovoLog per scale ACHS or Q6hrs while NPO * Goal Range: Low 110 mg/dL - High 140 mg/dL * Correction Factor: 25 mg/dL/unit * Nutritional / Prandial insulin per carb ratio of 1 unit per 8 grams CHO consumed * Please note that the plan above was derived based on current level of insulin resistance and hospital stress. These recommendations are appropriate for inpatient admission only. Plan of care upon discharge will need to be reassessed to avoid potential outpatient hypo/hyperglycemia. Thank you.
[2018-04-26] MEDS ORDERED: BUPIVACAINE/EPINEPHRINE 0.5% MPF 1:200,000 30 ML VIAL ONE (08:52)
[2018-04-26] MEDS ORDERED: THROMBIN 5000 UNITS KIT ONE (08:52)
[2018-04-26] MEDS ORDERED: HEPARIN (PORCINE) 1000 UNIT/ML 10 ML (CATH LAB USE ONLY) ONE (08:52)
[2018-04-26] MEDS ORDERED: LIDOCAINE HCL 1% 20 ML VIAL ONE (08:52)
[2018-04-26] MEDS ORDERED: IODIXANOL (VISIPAQUE) 270 MG/ML 50ML ONE ×2 (08:53→11:40)
[2018-04-26] MEDS ORDERED: GELATIN SPONGE SZ 100 ONE (08:53)
[2018-04-26] MEDS ORDERED: CEFAZOLIN 250 MG/ML 1 GM VIAL ONE (08:53)
[2018-04-26 09:07] LABS: Hematocrit (blood only) 45.4 % (42-52); Hemoglobin 15.5 g/dL (14.0-18.0); Mean Corpuscular Hgb Conc 34.1 g/dL (32-36); Mean Corpuscular Volume 89.5 fL (80-100); Mean Platelet Volume 9.6 fL (7.4-10.4); Platelet Count 172 K/uL (130-400); RDW Coefficient of Variation 14.2 % (11.5-14.5); RDW Standard Deviation 46.1 fL (36.4-46.3); Red Blood Count 5.07 M/uL (4.7-6.1); White Blood Count 8.61 K/uL (4.8-10.8)
[2018-04-26] MEDS ORDERED: ATROPINE SULFATE 0.1 MG/ML 5ML SYR IV PRN (09:13)
[2018-04-26] MEDS ORDERED: HYDROmorphone INJ 1 MG/ML SYRINGE IV PRN (09:13)
[2018-04-26] MEDS ORDERED: ONDANSETRON INJ 2 MG/ML 2 ML VIAL IV PRN (09:13)
[2018-04-26] MEDS ORDERED: fentaNYL citrate 100 MCG/2 ML VIAL IV PRN (09:13)
[2018-04-26] MEDS ORDERED: ePHEDrine sulfate 50 MG/ML AMP IV PRN (09:13)
[2018-04-26 09:34] LABS: Partial Thromboplastin Ratio 2.4
[2018-04-26] MEDS ORDERED: NEOSTIGMINE METHYLSULFATE 5 MG/5 ML SYR ONE (09:38)
[2018-04-26] MEDS ORDERED: ONDANSETRON INJ 2 MG/ML 2 ML VIAL ONE (09:38)
[2018-04-26] MEDS ORDERED: ROCURONIUM BROMIDE 10 MG/ML 5 ML VIAL ONE (09:38)
[2018-04-26] MEDS ORDERED: DEXAMETHASONE SOD INJ 4 MG/ML VIAL ONE (09:38)
[2018-04-26] MEDS ORDERED: GLYCOPYRROLATE 0.2 MG/ML VIAL ONE (09:38)
[2018-04-26] MEDS ORDERED: ePHEDrine sulfate 50 MG/ML SYR ONE (09:38)
[2018-04-26] MEDS ORDERED: THROMBIN FOR SOLN 20000 UNIT KIT ONE (09:41)
[2018-04-26 09:46] LABS: Partial Thromboplastin Time 62.7 Seconds (21.0-31.0)
[2018-04-26 09:57] LABS: Estimated Average Glucose 143 mg/dl
[2018-04-26] MEDS ORDERED: ALTEPLASE, RECOMBINANT 76 MG in EMPTY BAG 0 ML IV STA (10:19)
[2018-04-26] MEDS ORDERED: ALTEPLASE For Stroke IV STA (10:19)
[2018-04-26] MEDS ORDERED: RECOMBINANT IV STA (10:19)
[2018-04-26] MEDS ORDERED: ALTEPLASE IV STA (10:19)
[2018-04-26] MEDS ORDERED: HEPARIN SOD (PORCINE) 5,000 UNITS/ML VIAL ONE ×2 (10:22→10:25)
[2018-04-26] MEDS ORDERED: RECOMBINANT IV SCH (10:45)
[2018-04-26] MEDS ORDERED: ALTEPLASE IV SCH (10:45)
[2018-04-26] MEDS ORDERED: SODIUM CHLORIDE 0.9% IV SCH (10:45)
[2018-04-26] MEDS ORDERED: HEPARIN SOD (PORCINE) 1000 UNIT/ML 10 ML VIAL ONE (10:57)
--- NOTE | 2018-04-26 12:39 | Post Operative Brief Note ---
Immediate Post Op Note v1 Date of Surgery April 26, 2018 Pre & Post Diagnosis Operation Date: 04/26/18 08:00 Pre-Op Diagnosis: Left Popliteal Artery Occlusion Post-Op Diagnosis: Left Popliteal Artery Occlusion Procedure Operation Date: 04/26/18 08:00 Actual Procedures p Arteriography of the left lower extremity, mechanical thrombectomy with tissue plasminogen activator left lower extremity, Percutaneous transluminal angioplasty left superficial femoral artery and left popliteal artery and stenting, open technique - Jair Pavon MD s Angiogram (Left) - Jair Pavon MD Surgeon Jair Pavon MD Sheet Folder none Estimated Blood Loss 100 Findings Consistent with Post-Op Diagnosis Drains West Catheter Anesthesia Type General Complications none Disposition Accompanied Patient To Recovery: No Disposition: Recovery Room
--- NOTE | 2018-04-26 13:43 | Anesthesiology Progress Note ---
Date of Service April 26, 2018 Anesthesia Post Procedure Vital Signs Vital Signs: Temp Pulse Pulse Pulse Resp BP BP 04/26/18 13:35 90 17 143/74 H 04/26/18 13:25 99 H 18 126/79 04/26/18 13:15 99 H 20 137/74 04/26/18 13:05 99 H 14 148/79 H 04/26/18 12:55 102 H 20 113/80 04/26/18 12:47 36.8 C 108 H 20 144/79 H 04/26/18 07:55 36.9 C 62 20 142/89 H 04/26/18 06:26 36.4 C L 72 18 158/78 H 04/25/18 23:24 36.7 C 67 18 144/93 H 04/25/18 21:35 36.5 C 71 188/74 H 04/25/18 19:40 36.4 C L 88 16 188/106 H 04/25/18 18:44 36.4 C L 71 12 171/94 H 04/25/18 18:06 85 20 151/99 H 04/25/18 18:02 82 20 151/99 H 04/25/18 16:25 36.8 C 48 L 20 159/73 H Pulse Ox 04/26/18 13:35 95 04/26/18 13:25 94 04/26/18 13:15 93 04/26/18 13:05 97 04/26/18 12:55 98 04/26/18 12:47 96 04/26/18 07:55 97 04/26/18 06:26 94 04/25/18 23:24 96 04/25/18 21:35 96 04/25/18 19:40 96 04/25/18 18:44 98 04/25/18 18:06 95 04/25/18 18:02 95 04/25/18 16:25 96 Notes Mental Status: alert / awake / arousable and participated in evaluation Patient Amnestic to Procedure: Yes Nausea / Vomiting: adequately controlled Pain: adequately controlled Airway Patency, RR, SpO2: stable & adequate BP & HR: stable & adequate Hydration State: stable & adequate Anesthetic Complications: no major complications apparent and Pt Satisfied with anesthetic care
[2018-04-26 14:31] LABS: Basophils # (auto) 0.01 K/uL (0-0.2); Basophils % (auto) 0.1 %; Hematocrit (blood only) 42.2 % (42-52); Hemoglobin 14.6 g/dL (14.0-18.0); Immature Granulocytes # (auto) 0.02 K/uL (0.00-0.02); Immature Granulocytes % (auto) 0.2 %; Lymphocytes # (auto) 0.71 K/uL (1.2-3.4); Lymphocytes % (auto) 6.3 %; Mean Corpuscular Hgb Conc 34.6 g/dL (32-36); Mean Corpuscular Volume 88.8 fL (80-100); Mean Platelet Volume 9.6 fL (7.4-10.4); Monocytes # (auto) 0.16 K/uL (0.11-0.59); Monocytes % (auto) 1.4 %; Neutrophils # (auto) 10.46 K/uL (1.4-6.5); Platelet Count 174 K/uL (130-400); RDW Coefficient of Variation 14.1 % (11.5-14.5); RDW Standard Deviation 45.8 fL (36.4-46.3); Red Blood Count 4.75 M/uL (4.7-6.1); White Blood Count 11.36 K/uL (4.8-10.8)
[2018-04-26] MEDS: HEPARIN SODIUM/DEXTROSE 25,000 UNITS/500 ML BAG IV SCH (15:22)
[2018-04-26] MEDS ORDERED: INSULIN GLARGINE SOLOSTAR 100 UNITS/ML 3 ML PEN SC ONE (15:30)
[2018-04-26] MEDS: CLOPIDOGREL BISULFATE 75 MG TAB PO SCH (16:18)
[2018-04-26] MEDS: CEFAZOLIN 2000MG 2,000 MG/15 ML SYR IV SCH (17:33)
--- NOTE | 2018-04-26 19:10 | Critical Care Consultation ---
Date of Consultation April 26, 2018 Assessment & Plan (1) Left popliteal artery occlusion: Impression: 1. 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 2. Type 2 diabetes, on oral hypoglycemic agent metformin. 3. History of industrial lung. 4. Hypertension. Plan: 1. Continue current treatment. 2. Plavix and heparin drip resumed. 3. Oral intake. 4. The patient on heparin drip already prophylaxed for DVT. 5. Appreciate Dr. Shukla input. 6. Discussed with the staff on rounds and details. Recommend using antihypertensive medication as an outpatient. Patient is not on them. 7. CCM was 35 minutes. History of Present Illness Reason for Consultation: Post vascular surgery and aneurysmal repair monitoring in ICU. Requesting Physician: Dr. Pavon Attending Physician: Jair Pavon MD History of Present Illness Dear Dr. Pavon, Thank you for your kind referral Mr. Mejia to critical care service. This is 77-year-old gentleman with history of peripheral arterial disease, left popliteal aneurysm, left lower extremity thrombectomy, history of industrial long, type 2 diabetes, presented to the hospital for left popliteal artery aneurysm endoluminal repair, and thrombectomy. The patient postop was transferred to the ICU for further monitoring. On arrival, the patient denies any pain, no shortness of breath, no abdominal pain, no nausea or vomiting, he appeared very comfortable, he was having pain even with minimal exertion as an outpatient. The patient has been diagnosed also with diabetes, maintained only on metformin. He has been maintained also on Plavix as an outpatient. He has no history of coronary artery disease, CHF, CVA or other vascular disease. Asymptomatic at the moment. 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 Allergies Allergy/AdvReac Type Severity Reaction Status Date / Time No Known Allergies Allergy Unverified 10/13/17 07:55 Home Medications Home Medications Medication Instructions Recorded Confirmed Type Famotidine (Pepcid) 20 mg PO DAILY PRN #0 tab 12/20/12 04/25/18 History METFORMIN HCL (GLUCOPHAGE) 500 mg PO QAM #0 tab 10/09/17 04/25/18 History CLOPIDOGREL BISULFATE (PLAVIX) 75 mg PO DAILY #30 tab 10/13/17 04/25/18 Rx Patient History Medical History Aneurysm of left popliteal artery (Resolved) Diabetes mellitus, type 2 PVD (peripheral vascular disease) Popliteal artery aneurysm Endovascular repair MAC. 09/2017 Surgical History H/O colonoscopy Family History Other No pertinent family history Social History Current Living Situation: Spouse Other Information That Helps Us Care for You: No Feels Safe at Home: Yes Safety Concerns: Feels Safe At This Time Smoking Status: Never smoker Hx Alcohol Use: No Hx Substance Use: No Beliefs That Will Affect Care: None Preferred Language: Romanian Communication Ability: Effective Review of Systems 10 systems has been reviewed, are unremarkable. Physical Exam 2 Vital Signs (Past 24 Hours): Last Vital Signs Temp 36.6 C 04/26/18 15:09 Pulse 99 H 04/26/18 18:00 Resp 20 04/26/18 18:00 BP 132/73 04/26/18 18:00 Pulse Ox 94 04/26/18 18:00 Physical Exam: Vital signs are stable, S1-S2 regular rate and rhythm, blood pressure is 141/73 with a map of 110, heart rate is 99 and normal sinus rhythm, respiratory rate of 20. 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 Neurologically intact. Results & Data Laboratory Results Labs were reviewed, showing slight hyperglycemia. BUN/creatinine has been maintained. Minimal leukocytosis. Diagnostic Findings Chest x-ray is normal. Lower extremity duplex showed complete occlusion of the left femoral superficial artery.
[2018-04-26] MEDS ORDERED: INSULIN GLARGINE SOLOSTAR 100 UNITS/ML 3 ML PEN SC SCH (21:00)
[2018-04-26 22:05] LABS: Partial Thromboplastin Ratio 5.7
[2018-04-26 22:10] LABS: Partial Thromboplastin Time 148.7 Seconds (21.0-31.0)
[2018-04-26] MEDS: FAMOTIDINE 20 MG TAB PO PRN (22:16)
[2018-04-27 00:05] LABS: Partial Thromboplastin Time 78.3 Seconds (21.0-31.0)
[2018-04-27] MEDS: CEFAZOLIN 2000MG 2,000 MG/15 ML SYR IV SCH (00:25)
[2018-04-27] MEDS: HEPARIN SODIUM/DEXTROSE 25,000 UNITS/500 ML BAG IV SCH ×2 (00:25→13:22)
[2018-04-27] MEDS ORDERED: ALUMINUM/MAGNESIUM SUSP 30 ML UDC PO PRN (01:53)
[2018-04-27] MEDS ORDERED: ALUMINUM/MAGNESIUM SUSP 30 ML UDC ONE (01:57)
[2018-04-27] MEDS ORDERED: INSULIN ASPART 100 UNITS/ML 3 ML PEN SC SCH (02:00)
[2018-04-27 04:41] LABS: Hematocrit (blood only) 39.8 % (42-52); Hemoglobin 13.8 g/dL (14.0-18.0); Immature Granulocytes # (auto) 0.04 K/uL (0.00-0.02); Immature Granulocytes % (auto) 0.3 %; Lymphocytes # (auto) 1.38 K/uL (1.2-3.4); Lymphocytes % (auto) 9.2 %; Mean Corpuscular Hgb Conc 34.7 g/dL (32-36); Mean Corpuscular Volume 89.4 fL (80-100); Mean Platelet Volume 9.8 fL (7.4-10.4); Monocytes # (auto) 0.96 K/uL (0.11-0.59); Monocytes % (auto) 6.4 %; Neutrophils % (auto) 84.1 %; Platelet Count 191 K/uL (130-400); RDW Coefficient of Variation 14.3 % (11.5-14.5); RDW Standard Deviation 47.1 fL (36.4-46.3); Red Blood Count 4.45 M/uL (4.7-6.1); White Blood Count 14.98 K/uL (4.8-10.8)
[2018-04-27 04:58] LABS: BUN Creatinine Ratio 17.4 (10-20); Calcium 8.4 mg/dl (8.5-10.1); Creatinine Clr Calc Pharmacy 63.9 ml/min; Est GFR (African American) 71.2; Est GFR (Non-African American) 61.5; Potassium 4.1 mmol/L (3.5-5.1)
[2018-04-27 07:36] LABS: Partial Thromboplastin Ratio 2.9
[2018-04-27 07:38] LABS: Partial Thromboplastin Time 75.1 Seconds (21.0-31.0)
--- NOTE | 2018-04-27 07:40 | Surgery Progress Note ---
Date of Service April 27, 2018 Assessment & Plan (1) Left popliteal artery occlusion: Patient POD 1 from revasc of left leg Doing well. Will transfer to floor and d/c later today on xeralto and plavix Physical Exam 2 Vital Signs (Past 24 Hours): Last Vital Signs Temp 36.6 C 04/27/18 04:00 Pulse 89 04/27/18 06:00 Resp 13 04/27/18 06:00 BP 132/74 04/27/18 06:00 Pulse Ox 95 04/27/18 06:00 Constitutional: WD/WN, vitals as above Respiratory: normal respiratory effort, lungs clear to auscultation normal respiratory effort; no respiratory distress Cardiovascular: Rate/Rhythm: regular rate and regular rhythm Vessels: femoral pulses present, posterior tibial pulses present (none on left, palp on right) and dorsalis pedis pulses present (palpable on left, palpable on right) Extremities: normal capillary refill (decreased on left) Musculoskeletal: Extremities: extremities normal to inspection Neurologic: moves all extremities; no focal motor deficits Motor/Sensory: normal movement
[2018-04-27] MEDS: FAMOTIDINE 20 MG TAB PO PRN ×2 (07:48→16:42)
[2018-04-27] MEDS: INSULIN ASPART 100 UNITS/ML 3 ML PEN SC SCH ×4 (07:48→20:53)
[2018-04-27] MEDS: CLOPIDOGREL BISULFATE 75 MG TAB PO SCH (08:57)
[2018-04-27] MEDS: RIVAROXABAN 10 MG TABLET PO SCH (09:26)
--- NOTE | 2018-04-27 12:17 | Communication Note ---
Date of Service: April 27, 2018 Patient had some bleeding from the incision the left groin. Appeared to be old hematoma but a fair amount. Pressure was applied. He has had no further bleeding since that time. We will get him up in a chair later today and ambulate him again at that time. We will hold his discharge until tomorrow.
[2018-04-27 14:16] LABS: Hematocrit (blood only) 40.5 % (42-52); Hemoglobin 13.5 g/dL (14.0-18.0)
[2018-04-27 14:36] LABS: BUN Creatinine Ratio 17.1 (10-20); Calcium 8.8 mg/dl (8.5-10.1); Creatinine Clr Calc Pharmacy 60.9 ml/min; Est GFR (Non-African American) 57.8; Magnesium 2.5 mg/dl (1.8-2.4); Potassium 4.1 mmol/L (3.5-5.1)
--- NOTE | 2018-04-27 16:57 | Critical Care Progress Note ---
Date of Service April 27, 2018 Assessment & Plan (1) Left popliteal artery occlusion: Impression: 1. 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 2. Type 2 diabetes, on oral hypoglycemic agent metformin. 3. History of industrial lung. 4. Hypertension. Plan: 1. Continue current treatment. 2. Plavix and Xarelto, heparin drip was stopped. 3. Oral intake. 4. The patient is already DVT prophylaxis. 5. Appreciate Dr. Shukla input. 6. Discussed with the staff on rounds and details. 7. Daily labs. 8. Ambulate in the morning. 9. CCM was 35 minutes. Subjective No events overnight, today in the morning, the patient had bleeding from the surgical site, pressure was applied, and the bleeding was stopped and hemostasis achieved. The patient did not have any other symptoms, did not have any headache or dizziness, no near syncopal episode, no chest pain. No shortness of breath. The patient was able afterward to be sitting in upright position in the chair and ambulate as well. Physical Exam 2 Vital Signs (Past 24 Hours): Last Vital Signs Temp 36.6 C 04/27/18 04:00 Pulse 89 04/27/18 06:00 Resp 13 04/27/18 06:00 BP 132/74 04/27/18 06:00 Pulse Ox 95 04/27/18 06:00 Physical Exam: Vital signs remained stable, S1-S2 regular rate and rhythm, abdomen is benign, lungs are clear, left groin hematoma was noted. Minimal bleeding from the incision related to the hematoma. Results & Data Laboratory Results Labs were reviewed which showed stable hematocrit at 42, BUN/creatinine also are stable. Diagnostic Findings No new imaging.
[2018-04-27] MEDS ORDERED: INSULIN GLARGINE SOLOSTAR 100 UNITS/ML 3 ML PEN SC ONE (21:00)
[2018-04-28 04:24] LABS: Hematocrit (blood only) 37.3 % (42-52); Hemoglobin 12.7 g/dL (14.0-18.0); Mean Corpuscular Volume 91.2 fL (80-100); Mean Platelet Volume 9.5 fL (7.4-10.4); Platelet Count 163 K/uL (130-400); RDW Coefficient of Variation 14.5 % (11.5-14.5); RDW Standard Deviation 48.2 fL (36.4-46.3); Red Blood Count 4.09 M/uL (4.7-6.1); White Blood Count 11.29 K/uL (4.8-10.8)
[2018-04-28 04:46] LABS: BUN Creatinine Ratio 20.4 (10-20); Calcium 8.5 mg/dl (8.5-10.1); Creatinine Clr Calc Pharmacy 71.2 ml/min; Est GFR (African American) 81.4; Est GFR (Non-African American) 70.2; Potassium 4.7 mmol/L (3.5-5.1)
[2018-04-28] MEDS: INSULIN ASPART 100 UNITS/ML 3 ML PEN SC SCH ×2 (07:31→11:57)
--- NOTE | 2018-04-28 08:31 | Surgery Progress Note ---
Date of Service April 28, 2018 Assessment & Plan (1) Left popliteal artery occlusion: At this point will ambulate. If no other further bleeding occurs she can be discharged later today. Subjective Patient is up in a chair. He claims to have no further bleeding since yesterday. He has no other complaints. Physical Exam 2 Vital Signs (Past 24 Hours): Last Vital Signs Temp 37 C 04/28/18 07:24 Pulse 98 H 04/28/18 07:45 Resp 24 04/28/18 07:24 BP 106/60 04/28/18 07:24 Pulse Ox 94 04/28/18 07:24 Physical Exam: His groin incision is unchanged. There is still small hematoma present. The dressing is dry and intact. Incision line is intact.
[2018-04-28] MEDS: RIVAROXABAN 10 MG TABLET PO SCH (08:58)
[2018-04-28] MEDS: CLOPIDOGREL BISULFATE 75 MG TAB PO SCH (08:58)
[2018-04-28] MEDS ORDERED: POLYETHYLENE (MIRALAX) 17 GM PACK PO PRN (09:45)
[2018-04-28] MEDS ORDERED: POLYETHYLENE (MIRALAX) 17 GM PACK ONE (09:47)
--- NOTE | 2018-04-28 10:40 | Critical Care Progress Note ---
Date of Service April 28, 2018 Assessment & Plan (1) Left popliteal artery occlusion: Impression: 1. 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 2. Type 2 diabetes, on oral hypoglycemic agent metformin. 3. History of industrial lung. 4. Hypertension. Plan: 1. MiraLAX for constipation. 2. Plavix and Xarelto. 3. Oral intake. 4. The patient is already DVT prophylaxed. 5. Appreciate Dr. Pavon input. 6. Discussed with the staff on rounds and details. 7. Daily labs. 8. Ambulate . 9. Disposition plan per Dr. Pavon. Critical care time spent with the patient was 35 minutes. Subjective No events overnight, today in the morning, the patient had bleeding from the surgical site, pressure was applied, and the bleeding was stopped and hemostasis achieved. The patient did not have any other symptoms, did not have any headache or dizziness, no near syncopal episode, no chest pain. No shortness of breath. The patient was able afterward to be sitting in upright position in the chair and ambulate as well. Today on 04/28/2018, the patient is feeling much better, ambulatory, feels a little dizzy at the beginning when he stood up from the bed. The patient has no recurrence of bleeding from the left groin. The size of the hematoma is diminishing. Tolerating oral intake, he does have significant constipation. Physical Exam 2 Vital Signs (Past 24 Hours): Last Vital Signs Temp 37 C 04/28/18 07:24 Pulse 96 H 04/28/18 10:04 Resp 16 04/28/18 10:04 BP 119/79 04/28/18 10:04 Pulse Ox 93 04/28/18 09:00 Physical Exam: Stable vital signs, S1-S2 regular rate and rhythm, lungs are clear, abdomen is benign, significant improvement in the hematoma on the left groin, pulses are equal in the periphery. Neurologically intact. Results & Data Laboratory Results Labs were reviewed, his BUN/creatinine has been stable. Hematocrit is stable as well.
[2018-04-28] MEDS ORDERED: INSULIN GLARGINE SOLOSTAR 100 UNITS/ML 3 ML PEN SC ONE (21:00)
--- NOTE | 2018-05-01 10:19 | Discharge Summary ---
Date of Service May 01, 2018 Admission HPI Per Admitting Provider Patient is a 77 y/o white male who had a left popliteal stent for a popliteal aneurysm done in the past. He developed sudden onset of left calf pain 4 days prior to this. It lasted a short time then resolved. He now has claudication and a cold feeling foot with a slight numb feeling. He denies rest pain. He does state that the left foot is paler than the right. He denies chest pain or any palpatations. USN done showed an occluded distal SFA and popliteal with anterior tibial runoff. Admission Exam Per Admitting Provider Vital Signs (Past 24 Hours): Last Vital Signs Temp 36.7 C 04/25/18 23:24 Pulse 67 04/25/18 23:24 Resp 18 04/25/18 23:24 BP 144/93 H 04/25/18 23:24 Pulse Ox 96 04/25/18 23:24 Constitutional: WD/WN, vitals as above Neck: trachea midline; neck not short Respiratory: normal respiratory effort, lungs clear to auscultation normal respiratory effort; no respiratory distress Cardiovascular: Rate/Rhythm: regular rate and regular rhythm Vessels: femoral pulses present, posterior tibial pulses present (none on left, palp on right), dorsalis pedis pulses present (none on left, palpable on right) and radial pulses present; no carotid bruit Extremities: normal capillary refill ( decreased on left); no edema Gastrointestinal (Abdomen): Inspection/Auscultation: abdomen normal to inspection; abdomen not distended Percussion/Palpation: abdomen soft; abdomen nontender Musculoskeletal: Head/Neck/Chest: normocephalic Extremities: extremities normal to inspection Skin: no ulcers and no wound Neurologic: CN's II-XI intact bilaterally and moves all extremities; no focal motor deficits Speech / Cognition: normal speech Motor/Sensory: normal movement Psychiatric: Orientation: alert and oriented x 3 Lymphatic: no lymphedema Principal Diagnosis acute LLE arterial occlusion Discharge Exam Constitutional WD/WN, vitals as above Neck trachea midline; neck not short Respiratory normal respiratory effort, lungs clear to auscultation normal respiratory effort; no respiratory distress Cardiovascular Rate/Rhythm: regular rate and regular rhythm Vessels: femoral pulses present, posterior tibial pulses present (none on left, palp on right), dorsalis pedis pulses present (palpable on left, palpable on right) and radial pulses present; no carotid bruit Extremities: normal capillary refill (decreased on left); no edema Gastrointestinal (Abdomen) Inspection/Auscultation: abdomen normal to inspection; abdomen not distended Percussion/Palpation: abdomen soft; abdomen nontender Musculoskeletal Head/Neck/Chest: normocephalic Extremities: extremities normal to inspection Skin no ulcers and no wound Neurologic CN's II-XI intact bilaterally and moves all extremities; no focal motor deficits Speech / Cognition: normal speech Motor/Sensory: normal movement Psychiatric Orientation: alert and oriented x 3 Lymphatic no lymphedema Discharge Data Allergies Allergy/AdvReac Type Severity Reaction Status Date / Time No Known Allergies Allergy Unverified 10/13/17 07:55 Consultations 04/25/18 16:35 Consult Vascular Surgery Stat 04/26/18 14:09 Consult Platen Grinder Routine Procedures Performed Operation Date: 04/26/18 08:00 Actual Procedures p thrombectomy with arteriography of the left lower extremity, mechanical thrombectomy, tissue plasminogen activator left lower extremity, Percutaneous transluminal coronary angioplasty left superficial femoral artery and left popliteal artery, open technique - Jair Pavon MD s Angiogram (Left) - Jair Pavon MD Ordered Studies 04/26/18 08:20 EV angio LE LT Stat Hospital Course (1) Left popliteal artery occlusion: Impression: 1. 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 2. Type 2 diabetes, on oral hypoglycemic agent metformin. 3. History of industrial lung. 4. Hypertension. Pt did well post op after revacularization and was started on plavix and xarelto. Total Time Total Time Spent Total Time Spent (In Minutes): 10 minutes Total Time Includes: Discharge Planning, Medication Reconciliation and Communication With Other Providers Discharge Plan Discharge Items Patient Disposition: Home - Self-Care Reason For Visit: OCCLUDED POPLITEAL ARTERY Discharge Diagnosis: Left popliteal artery occlusion Discharge Goals: Therapeutic intervention Activity: Per 'Additional Instructions' section Non-emergency contact: Surgeon Call non-emergency contact if: you have any medication questions, your symptoms worsen, your pain is not controlled, your pain is worsening, your pain is unusual for you, your pain is concerning for you, your temperature is above 101.5, your wound has increased redness, your wound has increased drainage and your wound pain has increased Diet: Heart Healthy Addtl Provider Instructions: SPECIAL CARE INSTRUCTIONS: Medications: * Continue to take your medications as directed. If you have been given a prescription for Plavix, please fill it immediately and take as directed. Incision Care: * Your puncture site may have some bruising and minor swelling for about one week. * You will have a small dressing covering your puncture site. You may remove the dressing after 24 hours and shower. You may let the warm soapy water run over it, but be sure to dry the puncture site well and keep it dry. * DO NOT IMMERSE THE INCISION IN A TUB/POOL/etc. UNTIL HEALED. * Puncture sites should be kept covered with a band-aid until it begins to heal. Restrictions: * Depending on whether you leg or arm was punctured to access the arteries, you will be required to lay flat, hold your arm still, or both, for about 4 hours after the procedure to prevent bleeding. * Limit your activity for the first 48 hours. You may walk and go up and down steps. Avoid excessive bending or movement at the puncture site. Possible Complications: * Excessive Swelling - after blood flow is improved you may notice increased swelling in the lower legs. This is a normal response. This usually depends on the amount of blockages in the leg, how long they have been there prior to your procedure and how much blood flow was restored. Elevating your legs will help to improve this. Please notify our office ) if the swelling does not go away after lying in bed overnight. * Infection/Drainage/Bleeding - Drainage or bleeding from the puncture site should be minimal. If you have excessive bleeding or drainage, call our office ([phone]) right away. * Pain - You may experience some mild pain or soreness at your puncture site. If your pain does not improve, please contact our office ([phone]). Call your doctor and seek emergent treatment if you develop: * Temperature above 101 degrees * Any fever or chills * Any redness or purulent drainage from the puncture site * Any new dusky/blue colored toes or feet with coolness or sharp or aching pain. SKIN IRRITATION: * You may experience some redness and/or swelling in the area where radiation was administered. If any skin irritation occurs, please contact your family physician. FOLLOW UP VISIT: Keep any scheduled doctor appointments. Call [phone] to schedule a follow up appointment if one not already scheduled. Prescriptions: New rivaroxaban [Xarelto] 10 mg tablet 10 mg PO DAILY Qty: 30 RF: 11 hydrocodone-acetaminophen [[place]] 5-325 mg tablet 1 tab PO Q6H PRN (Reason: cough) Qty: 30 RF: 0 Continue Famotidine (Pepcid) 20 MG tablet 20 mg PO DAILY PRN (Reason: Heartburn) Qty: 0 RF: 0 METFORMIN HCL (GLUCOPHAGE) 500 MG tablet 500 mg PO QAM Qty: 0 RF: 0 CLOPIDOGREL BISULFATE (PLAVIX) 75 MG tablet 75 mg PO DAILY Qty: 30 RF: 11 Visit Report Forms: My [facility]/Other Patient Handouts: Clopidogrel Bisulfate Oral tablet, Rivaroxaban Oral tablet Rivaroxaban Oral tablet Discharge Orders: Discharge Order (Routine); Ordered 04/28/18 Ordered By: Jair Pavon Admission Data Admit Date/Time: 04/25/18 17:02 Attending Provider: Jair Pavon Admit Provider: Jair Pavon Primary Care Provider: Tonny Khan Other Providers: Jair Pavon ; Mark Javier Service: Intensive Care Unit Other Interventions: Discharge Summary Assessment (RN) Last Done: 04/28/18 13:15 DC Date/Time DO NOT enter until pt leaves facility: 04/28/18 15:17
--- NOTE | 2018-06-05 14:20 | Operative Report ---
Post Operative Report Pre & Post Diagnosis Operation Date: 04/26/18 08:00 Pre-Op Diagnosis: Left Popliteal Artery Occlusion Post-Op Diagnosis: Left Popliteal Artery Occlusion Procedure Operation Date: 04/26/18 08:00 Actual Procedures p thrombectomy with arteriography of the left lower extremity, mechanical thrombectomy, tissue plasminogen activator left lower extremity, Percutaneous transluminal coronary angioplasty left superficial femoral artery and left popliteal artery, open technique - Jair Pavon MD s Angiogram (Left) - Jair Pavon MD Surgeon Jair Pavon MD Parachute/Combatant Diver Officer none Estimated Blood Loss 100 Findings Consistent with Post-Op Diagnosis Specimens none Anesthesia Type General Complications none Disposition Accompanied Patient To Recovery: No Disposition: Recovery Room Indications This is a 77-year-old gentleman who had a previous stent placed in the left popliteal artery. He came in with a 4-day history of pain in his left calf. Occlusion of the popliteal artery and stent was found. An attempt intervention is recommended. I have discussed the risks options and benefits of the procedure with the patient. The patient understands the risks options and benefits and agrees to the procedure. Description of Procedure Patient was taken to the angiogram suite and placed in supine position. After general anesthesia accomplished the left leg was prepped and draped in a sterile manner. Incision was made in the left groin. This was carried down to the common femoral arteries identified. This was isolated proximal distally. The common femoral artery was then punctured and it was cannulated with a 5 Telugu sheath in an antegrade fashion.. Arteriography was then performed which showed occlusion of the left popliteal artery. There is reconstitution of the infrapopliteal arteries beyond the trifurcation. We then passed a wire down through the occlusion. A quick cross was inserted over the wire at that point. Wire was removed hand-injection was performed which showed the catheter to be true lumen in the distal popliteal tibioperoneal trunk. Then used the AngioJet catheter and performed a mechanical thrombectomy of the this area. There is still a small amount of clot remaining as well as IntraStent stenoses. That point the mechanical thrombectomy catheter was removed. We then placed stents distally in the distal popliteal. Which there were an 8 x 5 overlap with a 10 x 10 followed by 10 x 5viabahn stents. We then overlapped proximally by 10 x 4 absolute. Completion arteriogram showed widely patent popliteal artery with good flow down through the distal popliteal anterior tibial artery runoff to the foot. Incision was then closed using running 2-0 Vicryl for the femoral sheath 3-0 Vicryl subtendinous layer and deniz for the skin. Good Doppler signals were heard in the foot. Sterile dressings were applied to the wound. The patient left the operation room in satisfactory condition and tolerated the procedure well. All needle and sponge counts were correct at the end of the procedure. I attest to the content of the Intraoperative Record and any orders documented therein. Any exceptions are noted below.
== END 2018-04-28 15:17 | disposition home or self-care (01) | DRG 271 ==
LOC: ED 16:20 → 3N 17:02 → 1E 04-26 13:58

== ENCOUNTER 2024-02-23 09:13 | Inpatient (IN) ==
--- NOTE | 2024-02-23 09:56 | Emergency Department Note ---
ED Provider Note History of Present Illness Chief Complaint: Leg Injury/Pain Stated Complaint: L LEG PAIN, TINGLING, REF BY DOC POST-OP STENT Time Seen by Provider: 02/23/24 09:31 83-year-old male who presents the emergency department with his son for evaluation of left leg pain. The patient reports that he had a colonoscopy this past Monday, and had to stop his blood thinners before his procedure. The patient stopped his Plavix for 5 days, and Xarelto for 2 days. Patient has a history of peripheral vascular disease and left leg popliteal aneurysm, having had 2 stents in the past by Dr. Pavon. The patient reports that he started to develop his leg discomfort the day after his surgery. He did call Dr. Pavon's office, and they wanted him to be seen in their office yesterday, but the patient elected to wait but he reports with persistent pain, he came to the emergency department for further evaluation. Patient has not noticed any swelling of the leg or foot. He denies any discoloration of the toes. He also denies any pelvic pain, abdominal pain, chest pain or shortness of breath. 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 Patient rates his discomfort a 1 out of 10. Home Medications Medication Instructions Recorded Confirmed Type rivaroxaban 10 mg tablet (Xarelto) 10 mg PO DAILY #30 tabs 04/27/18 02/23/24 Rx clopidogrel 75 mg tablet 75 mg PO DAILY #90 tabs 12/30/21 02/23/24 Rx blood sugar diagnostic (OneTouch #100 ea 06/30/22 08/04/23 Rx Verio test strips) blood-glucose meter (OneTouch #1 ea 06/30/22 08/04/23 Rx Verio Meter) lancets 33 gauge (OneTouch Delica #100 ea 06/30/22 08/04/23 Rx Lancets) triamcinolone acetonide 0.1 % 1 applic topical DAILY 06/30/22 02/23/24 History topical cream metformin 500 mg tablet See Rx Instructions PO DAILY #270 06/26/23 02/23/24 Rx tabs olmesartan 5 mg tablet 5 mg PO QAM #90 tabs 08/04/23 02/23/24 Rx omeprazole 20 mg capsule,delayed 20 mg PO Q2D #45 caps 08/04/23 02/23/24 Rx release rosuvastatin 10 mg tablet 10 mg PO QAM #90 tabs 08/04/23 02/23/24 Rx Allergies Allergy/AdvReac Type Severity Reaction Status Date / Time No Known Allergies Allergy Verified 02/19/24 09:54 Past Med/Surg History Problem List (Updated 02/23/24 @ 16:19 by Carlitos Jorge) History of peripheral vascular disease (Acute) Popliteal artery occlusion, left (Acute) Arterial occlusion, lower extremity History of colon polyps Encounter for pre-operative examination Cough Post-nasal drainage Bacterial sinusitis GERD without esophagitis Type 2 diabetes mellitus with microalbuminuria, without long-term current use of insulin Dyslipidemia Primary hypertension Chronic anticoagulation PVD (peripheral vascular disease) Aneurysm of left popliteal artery Medical History PVD (peripheral vascular disease) Primary hypertension Dyslipidemia Type 2 diabetes mellitus GERD (gastroesophageal reflux disease) On anticoagulant therapy PLAVIX AND XARELTO DAILY Popliteal artery aneurysm Endovascular repair MAC. 09/2017- follows w/ Dr Pavon Surgical History History of right cataract extraction Hx of hand surgery right Hx of arthroscopy of left knee Hx of carpal tunnel repair Hx of appendectomy S/P nasal surgery S/P carpal tunnel release S/P left knee surgery S/P appendectomy S/P aneurysm repair x 2 left leg- Dr Pavon- 2017 H/O colonoscopy Family History Brother Diabetes Other No pertinent family history Denies family history of Coronary heart disease Myocardial infarction Breast cancer Colorectal cancer Cancer Social History Smoking Status: Never smoker Second Hand Exposure: No; Do You Dip or Chew Tobacco: No; Hx Alcohol Use: No Hx Substance Use: No Preferred Language: Djiboutian Communication Ability: Effective Processing Assistant Required: No Beliefs That Will Affect Care: None marital status: Current Living Situation: Spouse current occupational status: retired Feels Safe at Home: Yes Physical Activity Frequency: 5-6 Times per Week Seatbelt Use: never Sunscreen Use: No Assistive Devices: Denture - Upper, Denture - Lower and Glasses Physical Exam Vital Signs Vital Signs - 24 hr 02/23/24 09:23 02/23/24 13:59 02/23/24 14:15 Temperature 36.3 C L Temperature Source Temporal Artery Scan Pulse Rate 111 H 87 Pulse Rate [Apical] 83 Respiratory Rate 16 18 Respiratory Effort / Characteristics Non-Labored Spontaneous Respiratory Depth Normal Blood Pressure 123/84 Blood Pressure [Left Arm] 171/83 H Blood Pressure Mean 97 Blood Pressure Mean [Left Arm] 112 Pulse Oximetry 96 97 Oxygen Delivery Method Room Air Room Air Sepsis Recent Fever Within 48 Hours No Sepsis New/Unexplained Change in Mental Status No Sepsis Action Taken by Nursing No Action Required CONSTITUTIONAL: Healthy and well nourished. Patient does not appear in any acute distress. MUSCULOSKELETAL: Examination of the left lower extremity does not show any soft tissue edema, ecchymosis or erythema of the leg. Pedal pulses are not palpated, however the patient reports that usually they cannot be palp a bedside ultrasound study. Cap refill of the toes is approximately 4 seconds. No skin changes noted. No popliteal masses. Patient has minimal tenderness to palpation over the anterior proximal tibia region. INTEGUMENTARY: No rash or other significant dermatologic conditions noted. HEMATOLOGIC: No ecchymosis or petechiae. PSYCHIATRIC: Positive affect. NEUROLOGIC: Left lower extremity is sensory intact. Course Course Patient history and physical exam were performed. Nurses notes were reviewed. Vital signs are reviewed, showing a mild tachycardia. The patient is not hypertensive, febrile or hypoxic. The patient refused any analgesics. Venous ultrasound of the left lower extremity was negative for DVT. Arterial duplex of the left lower extremity was also ordered, showing an occlusion of the popliteal stent, as well as additional proximal leg arterial occlusions. Maribeth Camacho PA-C. She did review today's ultrasound studies, and compared them with the patient last in office ultrasound this past July, which showed wide open arterial flow. Because Dr. Pavon is out of town, she did recommend discussing ultrasound findings with [facility]. I did explain my conversation with the patient, who indicated that he would prefer to go home so explained the possibility that he would need to be transferred to [facility], and the patient indicated that he would not do so. At this point, the patient's case was then discussed with Dr. Lauren, vascular surgeon, who was able to review today's ultrasound findings. Given the patient's clinical presentation, as well as the patient's report of improving symptoms, and no concerning physical exam findings to suggest soft tissue ischemia or necrosis. Recommended inpatient management with a heparin drip, and reevaluation by Dr. Pavon on Monday when he returns. The case was discussed again with the patient, as well as Dr. Aceves, ED attending physician, who also discussed findings with the patient, and recommended admission. After long conversation with the risks occlusion and vascular injury, the patient was in agreement to be admitted. At this point, the case was discussed with the [facility] hospitalist service (Dr. Coughlin). I did place the order for IV heparin. Also and ordered initial labs, which were reviewed by me. Please see hospitalist and vascular surgery dictations for further treatment and final disposition. The patient does understand that if his vascular checks changed with acute findings that he would need to be transferred emergently to [facility]. The patient voiced understanding. Administered Medications Heparin Sodium/Dextrose (Heparin Sodium/Dextrose) 25,000 units in 500 mls @ 0 mls/hr IV .Q0M [facility]; Protocol Stop: 03/24/24 13:59 Last Titration: 02/23/24 15:15 Dose: 0 units/hr, 0 mls/hr Documented By: AJ Co-signed By: AMY Admin: 02/23/24 14:06 Dose: 1,500 units/hr, 30 mls/hr Documented By: DEBBIE Co-signed By: JUDITH Discontinued Medications Heparin Sodium (Porcine) (Heparin Sod (Porcine) 1000 Unit/Ml) 7,000 units IV NOW ONE Stop: 02/23/24 14:01 Last Admin: 02/23/24 14:05 Dose: 5,000 units Documented By: DEBBIE Co-signed By: JUDITH Heparin Sodium/Dextrose (Heparin Iv Adult Wt-Based Standard W/ Initial Bolus Protocol) 1 each IV NOW [facility]; Protocol Stop: 02/23/24 13:45 Last Admin: 02/23/24 14:06 Dose: 1 each Documented By: DEBBIE Medical Decision Making Medical Records Attestation: I reviewed the patient's medical records. Home Medications was personally reviewed by me Laboratory Data Attestation: I reviewed the patient's lab results. 02/23/24 14:00 02/23/24 14:00 Lab Results 02/23/24 Range/Units 14:00 WBC 7.33 (4.8-10.8) K/ul RBC 4.71 (4.70-6.10) M/uL Hgb 14.0 (14.0-18.0) g/dl Hct 41.7 L (42.0-52.0) % MCV 88.5 (80.0-100.0) fL MCH 29.7 (25.0-34.0) pg MCHC 33.6 (32.0-36.0) g/dL RDW Std Deviation 43.9 (36.4-46.3) fL RDW Coeff of Maite 13.5 (11.5-14.5) % Plt Count 188 (130-400) K/uL MPV 9.6 (9.4-12.4) fL Immature Gran % (Auto) 0.3 % Neut % (Auto) 64.4 % Lymph % (Auto) 26.1 % [place] % (Auto) 7.6 % Eos % (Auto) 1.2 % Baso % (Auto) 0.4 % Neut # (Auto) 4.72 (1.40-6.50) K/uL Lymph # (Auto) 1.91 (1.20-3.40) K/uL [place] # (Auto) 0.56 (0.11-0.59) K/uL Eos # (Auto) 0.09 (0.00-0.50) K/uL Baso # (Auto) 0.03 (0.00-0.20) K/uL Immature Gran # (Auto) 0.02 (0.01-0.20) K/uL PT 12.8 H (9.0-12.0) Seconds INR 1.2 H (0.9-1.1) APTT 34 H (21-31) Seconds PTT Ratio 1.3 Heparin Anti-Xa, Unfract > 1.50 H* (0.3-0.7) IU/ml Sodium 140 (136-145) mmol/L Potassium 4.2 (3.5-5.1) mmol/L Chloride 105 (98-107) mmol/L Carbon Dioxide 28 (21-32) mmol/L Anion Gap 7 (3-11) BUN 19 (6-23) mg/dl Creatinine 1.07 (0.6-1.4) mg/dl Est Cr Clr Drug Dosing 58.4 ml/min Est GFR ( Amer) 74.5 ml/min Est GFR (Non-Af Amer) 64.3 ml/min BUN/Creatinine Ratio 17.8 (10-20) Glucose 109 H (70-99(Fasting)) mg/dl Calcium 9.7 (8.6-10.3) mg/dl Total Bilirubin 0.6 (0.2-1.0) mg/dl AST 14 (13-39) U/L ALT 10 (7-52) U/L Alkaline Phosphatase 113 H (34-104) U/L Total Protein 7.1 (6.0-8.3) gm/dl Albumin 4.4 (3.4-5.0) gm/dl Globulin 2.7 (2.5-4.0) gm/dl Albumin/Globulin Ratio 1.6 (0.9-2) Imaging Data Attestation: I personally reviewed and interpreted this imaging study as follows: My Impression: Interpretation of the venous ultrasound of the left lower extremity does not show evidence for DVT. My interpretation of left lower extremity arterial duplex shows occlusion of the popliteal stent, as well as additional proximal leg arterial occlusions. Radiologist reports were also reviewed with concurrence. Radiologist's Impression: Duplex Scan Lower Extremity Artery 02/23/24 09:48 LEFT LOWER EXTREMITY DOPPLER ULTRASOUND CLINICAL HISTORY: LLE pain - h/o popliteal aneurysm w/ stent x2 COMPARISON STUDY: Left lower extremity arterial Doppler ultrasound April 25, 2018. CTA with runoff October 02, 2017. TECHNIQUE: Grayscale, color and duplex Doppler sonography of the arterial system of the left lower extremity was performed. FINDINGS: There is moderate atherosclerotic plaque within the left lower extremity. There is triphasic flow within the left common femoral artery and the left profunda. There is also triphasic flow within the proximal to mid left superficial femoral artery. As before, there is occlusion of the distal left femoral artery, as shown on ultrasound April 17, 2018. The left popliteal artery is also occluded. There is an occluded left popliteal artery stent which is located within a 3 cm popliteal artery aneurysm. There is no flow within the proximal left posterior tibial artery. There is monophasic flow within the distal left posterior tibial artery through collaterals. There is also dampened, monophasic flow within the left anterior tibial artery and bursal is pedis through collaterals. Portions of the left peroneal artery are occluded. There is monophasic flow within remainder of the left peroneal artery. IMPRESSION: 1. 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 2. Occluded left popliteal artery stent. No change in the surrounding 3 cm popliteal artery aneurysm which does not contain flow. 3. Monophasic dampened flow within the left calf vessels through collaterals, as described above. Occluded proximal left posterior tibial artery and portions of the left peroneal artery. ACT 112: Negative or not required by law. Electronically signed by: Huang Martinez M.D. 02/23/2024 12:23 PM Venous Doppler Study 02/23/24 09:48 ULTRASOUND LEFT LOWER EXTREMITY VENOUS CLINICAL HISTORY: Left leg pain. Recently discontinued anticoagulation. COMPARISON STUDY: Left lower extremity venous ultrasound dated 09/27/2017. TECHNIQUE: Real-time, grayscale, and color Doppler sonography of the deep veins of the left lower extremity was performed from the inguinal crease to the calf. Compression and augmentation were utilized. FINDINGS: There is no sonographic evidence of deep venous thrombosis identified in the left lower extremity. The common femoral, superficial femoral, and popliteal veins are patent and normally compressible. The greater saphenous vein and the profunda femoris vein at the junction with the common femoral vein are clear. The visualized calf veins are patent. A 2.9 cm popliteal artery aneurysm is noted. See report today's arterial ultrasound for detailed findings. IMPRESSION: 1. There is no sonographic evidence of deep venous thrombosis identified in the left lower extremity. 2. A popliteal artery aneurysm is noted. This will be discussed on today's arterial study. ACT 112: Negative or not required by law. Electronically signed by: Benji Zavala M.D. 02/23/2024 11:46 AM MDM Narrative See ED Course section for further details of today's visit. The patient presents for evaluation of left leg pain presented 24 hours after undergoing a colonoscopy. The patient does have a history of peripheral vascular disease and left popliteal artery aneurysm, status post stenting x [address] Pavon. The patient is usually on Plavix and Xarelto, however these medications had to stop prior to his colonoscopy study. The certainly places the patient at risk for developing DVT, therefore venous and arterial ultrasound studies were performed, showing a popliteal stent occlusion, as well as additional proximal leg arterial occlusions. The case was discussed with our local vascular surgeon's physician commercial assistant (vascular surgeon is out of town), as well as she [facility] vascular surgeon, who recommended admission for IV heparin, and referral to their facility for any worsening vascular changes. The patient will be admitted by the [facility] hospitalist service with frequent vascular checks. The patient will be reevaluated on Monday by Dr. Pavon after he returns from vacation. The case was also discussed with Dr. Aceves, ED to physician, who agrees with workup and hospitalist admission until he can be reevaluated by our vascular surgeon. Impression Popliteal artery occlusion, left, History of peripheral vascular disease Discharge Plan Visit Data Chief Complaint: Leg Injury/Pain Stated Complaint: L LEG PAIN, TINGLING, REF BY DOC POST-OP STENT ED Provider: Abi Aceves ED Midlevel Provider: Carlitos Jorge Discharge Problem: Popliteal artery occlusion, left, History of peripheral vascular disease Forms Stand Alone Forms: [facility] [employer] Prescriptions Prescriptions: No Action metformin 500 mg tablet See Rx Instructions PO DAILY Qty: 270 3RF Rx Instructions: Take orally 500mg in the morning, 1000mg in the evening daily; triamcinolone acetonide 0.1 % cream 1 applic topical DAILY (DME) OneTouch Verio test strips Strip See Rx Instructions .Route Qty: 100 3RF Rx Instructions: use to test sugar twice daily (DME) blood-glucose meter [OneTouch Verio Meter] [facility] See Rx Instructions .Route Qty: 1 0RF Rx Instructions: use to test blood sugars twice daily (DME) lancets [OneTouch Delica Lancets] 33 gauge misc See Rx Instructions .Route Qty: 100 3RF Rx Instructions: use to test blood sugars twice daily olmesartan 5 mg tablet 5 mg PO QAM Qty: 90 3RF omeprazole 20 mg capsule,delayed release(DR/EC) 20 mg PO Q2D Qty: 45 3RF rosuvastatin 10 mg tablet 10 mg PO QAM Qty: 90 3RF clopidogrel 75 mg tablet 75 mg PO DAILY Qty: 90 3RF Xarelto 10 mg tablet 10 mg PO DAILY Qty: 30 11RF Rx Instructions: for 12 days Referrals Referrals: Keira Grady MD [Primary Care Provider] -
--- NOTE | 2024-02-23 11:47 | Ultrasound Report ---
ULTRASOUND LEFT LOWER EXTREMITY VENOUS CLINICAL HISTORY: Left leg pain. Recently discontinued anticoagulation. COMPARISON STUDY: Left lower extremity venous ultrasound dated 09/27/2017. TECHNIQUE: Real-time, grayscale, and color Doppler sonography of the deep veins of the left lower ext remity was performed from the inguinal crease to the calf. Compression and augmentation were utilized . FINDINGS: There is no sonographic evidence of deep venous thrombosis identified in the left lower ext remity. The common femoral, superficial femoral, and popliteal veins are patent and normally compress ible. The greater saphenous vein and the profunda femoris vein at the junction with the common femora l vein are clear. The visualized calf veins are patent. A 2.9 cm popliteal artery aneurysm is noted. See report today's arterial ultrasound for detailed findings. IMPRESSION: 1. There is no sonographic evidence of deep venous thrombosis identified in the left lower extremity. 2. A popliteal artery aneurysm is noted. This will be discussed on today's arterial study. ACT 112: Negative or not required by law. Electronically signed by: Benji Zavala M.D. 02/23/2024 11:46 AM
--- NOTE | 2024-02-23 12:25 | Ultrasound Report ---
LEFT LOWER EXTREMITY DOPPLER ULTRASOUND CLINICAL HISTORY: LLE pain - h/o popliteal aneurysm w/ stent x2 COMPARISON STUDY: Left lower extremity arterial Doppler ultrasound April 25, 2018. CTA with runof f October 02, 2017. TECHNIQUE: Grayscale, color and duplex Doppler sonography of the arterial system of the left lower ex tremity was performed. FINDINGS: There is moderate atherosclerotic plaque within the left lower extremity. There is triphasi c flow within the left common femoral artery and the left profunda. There is also triphasic flow with in the proximal to mid left superficial femoral artery. As before, there is occlusion of the distal l eft femoral artery, as shown on ultrasound April 17, 2018. The left popliteal artery is also occlu ded. There is an occluded left popliteal artery stent which is located within a 3 cm popliteal artery aneurysm. There is no flow within the proximal left posterior tibial artery. There is monophasic airam w within the distal left posterior tibial artery through collaterals. There is also dampened, monopha sic flow within the left anterior tibial artery and bursal is pedis through collaterals. Portions of the left peroneal artery are occluded. There is monophasic flow within remainder of the left peroneal artery. IMPRESSION: 1. 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 2. Occluded left popliteal artery stent. No change in the surrounding 3 cm popliteal artery aneurysm which does not contain flow. 3. Monophasic dampened flow within the left calf vessels through collaterals, as described above. Occ luded proximal left posterior tibial artery and portions of the left peroneal artery. ACT 112: Negative or not required by law. Electronically signed by: Huang Martinez M.D. 02/23/2024 12:23 PM
--- NOTE | 2024-02-23 13:32 | Emergency Department Note ---
ED Visit Note I was consulted by the Advanced Practice Provider, Martin Jorge PA-C. I performed a substantive portion of the visit. This includes aspects of: History: Patient is an 83-year-old male presenting with left lower leg pain. Patient reports that last week he came off of his Plavix and Xarelto and plans for his colonoscopy this past Monday. He states that he developed left leg pain and pain behind his left knee starting 4 days ago. He has a history of popliteal arterial obstruction has a stent in place. Patient has been back on his Plavix and Xarelto since Monday. MDM: - Venous US negative for DVT. Arterial ultrasound shows blockages and occlusion of the popliteal stent. JAIMIE consulted vascular surgery at [facility], as our vascular surgeon is currently out of town. Vascular surgery recommended admission for heparin drip. Discussed results with the patient. He is agreeable to admission for heparin drip and plan for vascular consultation when Dr. Pavon is available. However, the patient develops a pulseless or cold foot, her she should be reconsulted for emergent transfer for surgical interventions. .
[2024-02-23] MEDS ORDERED: HEPARIN SOD (PORCINE) 1000 UNIT/ML IV ONE (14:00)
[2024-02-23] MEDS: HEPARIN SOD (PORCINE) 1000 UNIT/ML IV ONE (14:05)
[2024-02-23] MEDS: Heparin IV Adult Wt-Based Standard w/ INITIAL Bolus Protocol IV STA (14:06)
[2024-02-23] MEDS: HEPARIN SODIUM/DEXTROSE 25,000 UNITS/500 ML BAG IV SCH ×2 (14:06→22:02)
[2024-02-23 14:18] LABS: Basophils # (auto) 0.03 K/uL (0.00-0.20); Basophils % (auto) 0.4 %; Eosinophils # (auto) 0.09 K/uL (0.00-0.50); Eosinophils % (auto) 1.2 %; Hematocrit (blood only) 41.7 % (42.0-52.0); Immature Granulocytes # (auto) 0.02 K/uL (0.01-0.20); Immature Granulocytes % (auto) 0.3 %; Lymphocytes # (auto) 1.91 K/uL (1.20-3.40); Lymphocytes % (auto) 26.1 %; Mean Corpuscular Hemoglobin 29.7 pg (25.0-34.0); Mean Corpuscular Hgb Conc 33.6 g/dL (32.0-36.0); Mean Corpuscular Volume 88.5 fL (80.0-100.0); Mean Platelet Volume 9.6 fL (9.4-12.4); Monocytes # (auto) 0.56 K/uL (0.11-0.59); Monocytes % (auto) 7.6 %; Neutrophils # (auto) 4.72 K/uL (1.40-6.50); Neutrophils % (auto) 64.4 %; Platelet Count 188 K/uL (130-400); RDW Coefficient of Variation 13.5 % (11.5-14.5); RDW Standard Deviation 43.9 fL (36.4-46.3); Red Blood Count 4.71 M/uL (4.70-6.10); White Blood Count 7.33 K/ul (4.8-10.8)
--- NOTE | 2024-02-23 14:26 | History & Physical Report ---
Date of Service February 23, 2024 Assessment & Plan (1) Popliteal artery occlusion, left: Plan: Patient presents with acute occlusion of his left popliteal artery. He previously underwent endovascular repair of a left popliteal artery aneurysm with stent placement in 09/2017, followed by stent thrombosis in 03/2018 requiring thrombectomy & repeat stent placement. All prior procedures were performed by Dr Jair Pavon, [facility]. He had been off his Xarelto & Plavix prior to an outpatient colonoscopy on 02/19/24. Unfortunately, while off his anticoagulation & antiplatelet therapy, he likely occluded the popliteal artery stents sometime during that timeframe. Although there is popliteal artery occlusion it appears he has some collateral flow down to the left foot as his dorsalis pedis pulse is detectable by doppler. Further, patient denies any foot pain or paresthesias. I spoke directly to Dr Pavon this afternoon as well as his PA, Maribeth Camacho. Plan - * hold Xarelto, hold Plavix * begin heparin infusion (see below regarding anti-factor 10a level difficulties) * pain control with morphine IV prn or norco PO prn * continue statin agent * NPO after MN on Monday PM with tentative plans for surgical intervention on 02/26/24 * patient was counseled that if he has ANY worsening rest pain, numbness of the leg/foot, or loss of left leg/foot function he would need emergent intervention; this would require transfer to a tertiary care center ([place], [facility], etc) * of note - the ER physician gift shop assistant, Carlitos Jorge, called & spoke with on- call vascular surgery at [facility]; his arterial duplex study was pushed via PACS to [facility] for their review; after discussion about Mr Mejia's case it was felt that it was reasonable to allow Mr Mejia to remain here at [facility] with plans for intervention of his left leg on Monday In preparation for surgery will obtain EKG & CXR. (2) Aneurysm of left popliteal artery: Plan: Diagnosed 2018, s/p initial stent placement by Dr Pavon 09/2017. (3) Chronic anticoagulation: Plan: Patient takes Xarelto 10mg daily & Plavix 75mg daily. Both are on hold. To use heparin infusion in [place] - standard dosing. Unfortunately, because of his Xarelto use, his anti-factor Xa levels are very high. Serial levels continue to remain high. Thus, will plan to use PTT levels to guide his heparin dosing rather than anti- factor Xa levels. This was discussed with the pharmacy staff. D/c anti-factor Xa levels. Start heparin at 18 units/kg/hour then check PTT 6 hours later. Therapeutic level/target of PTT will be 60-90. (4) PVD (peripheral vascular disease): Plan: Known PAD of his legs. Follows with Dr Pavon, [facility]. (5) GERD without esophagitis: Plan: Cont PPI (6) Type 2 diabetes mellitus with microalbuminuria, without long-term current use of insulin: Plan: HOLD metformin Check a hemoglobin a1c while here BSGs ac/hs DM diet Loose novolog SSI for now (7) Dyslipidemia: Plan: Cont statin LDL was 29 early in 2023 on last lipid profile check (8) Primary hypertension: Plan: Cont ARB Adjust as needed Would hold on day of surgery to reduce the risk of hiwot-operative EVELIO History of Present Illness Chief Complaint: left leg pain Primary Care Provider: Keira Grady MD 83yo male with known PAD of the LLE. His history goes back to September 2017 when he underwent endovascular repair of a left popliteal artery aneurysm by Dr Jair Pavon. Stents were placed at that time for the aneurysm. Then, in March 2018, he developed thrombosis of the left popliteal artery stents. This required thrombectomy with repeat overlapping stent placement. In addition he has T2DM, HTN, GERD, and hyperlipidemia. Mr Mejia now presents with left leg pain beginning early Monday am of this week. Patient reports that he underwent colonoscopy on 02/19/24 and had been off his plavix & Xarelto for several days prior to the procedure (2 days for Xarelto, 5 days for plavix). 6 polyps were removed during the colonoscopy. As instructed he resumed his Xarelto and plavix on 02/20/24. Patient reports that the pain was in the left leg below the knee. Pain was mostly anterior as opposed to posterior. He never had pain in the popliteal fossa region or thigh. About the same time he did have some mild numbness and tingling in the left foot. All symptoms of the left leg/foot gradually improved over the next 2-3 days. He did call Dr Paovn's office on , 02/22/24 and was encouraged to seek out medical attention in the ER. He finally presented to [facility] ER today for evaluation. During my admission assessment he reports that he has NO rest pain of the left thigh, left lower extremity below the knee, or the foot itself. Sensation is normal and the previous tingling of the left foot has resolved. He does have some mild pain of the left calf/left weiss region with walking, however. He did take his Xarelto & plavix this morning before coming to the ER. Allergies Allergy/AdvReac Type Severity Reaction Status Date / Time No Known Allergies Allergy Verified 02/19/24 09:54 Home Medications Medication Instructions Recorded Confirmed Type rivaroxaban 10 mg tablet (Xarelto) 10 mg PO DAILY #30 tabs 04/27/18 02/23/24 Rx clopidogrel 75 mg tablet 75 mg PO DAILY #90 tabs 12/30/21 02/23/24 Rx blood sugar diagnostic (OneTouch #100 ea 06/30/22 08/04/23 Rx Verio test strips) blood-glucose meter (OneTouch #1 ea 06/30/22 08/04/23 Rx Verio Meter) lancets 33 gauge (OneTouch Delica #100 ea 06/30/22 08/04/23 Rx Lancets) triamcinolone acetonide 0.1 % 1 applic topical DAILY 06/30/22 02/23/24 History topical cream metformin 500 mg tablet See Rx Instructions PO DAILY #270 06/26/23 02/23/24 Rx tabs olmesartan 5 mg tablet 5 mg PO QAM #90 tabs 08/04/23 02/23/24 Rx omeprazole 20 mg capsule,delayed 20 mg PO Q2D #45 caps 08/04/23 02/23/24 Rx release rosuvastatin 10 mg tablet 10 mg PO QAM #90 tabs 08/04/23 02/23/24 Rx Past Med/Surg History Problem List History of peripheral vascular disease (Acute) Popliteal artery occlusion, left (Acute) Arterial occlusion, lower extremity History of colon polyps Encounter for pre-operative examination Cough Post-nasal drainage Bacterial sinusitis GERD without esophagitis Type 2 diabetes mellitus with microalbuminuria, without long-term current use of insulin Dyslipidemia Primary hypertension Chronic anticoagulation PVD (peripheral vascular disease) Aneurysm of left popliteal artery Medical History PVD (peripheral vascular disease) Primary hypertension Dyslipidemia Type 2 diabetes mellitus GERD (gastroesophageal reflux disease) On anticoagulant therapy PLAVIX AND XARELTO DAILY Popliteal artery aneurysm Endovascular repair MAC. 09/2017- follows w/ Dr Pavon Surgical History History of right cataract extraction Hx of hand surgery right Hx of arthroscopy of left knee Hx of carpal tunnel repair Hx of appendectomy S/P nasal surgery S/P carpal tunnel release S/P left knee surgery S/P appendectomy S/P aneurysm repair x 2 left leg- Dr Pavon- 2018 H/O colonoscopy Family History Brother Diabetes Mother Cancer Father Atherosclerotic cardiovascular disease Denies family history of Coronary heart disease Myocardial infarction Breast cancer Colorectal cancer Social History (Updated 02/24/24 @ 04:15 by Amilcar Coughlin MD) Smoking Status: Never smoker Second Hand Exposure: No; Do You Dip or Chew Tobacco: No; Hx Alcohol Use: No Hx Substance Use: No Preferred Language: Yakut Communication Ability: Effective Safety Equipment Tester Required: No Beliefs That Will Affect Care: None marital status: Current Living Situation: Spouse current occupational status: retired current occupation: worked at [id number] Feels Safe at Home: Yes Physical Activity Frequency: 5-6 Times per Week Seatbelt Use: never Sunscreen Use: No Assistive Devices: Denture - Upper, Denture - Lower and Glasses Review of Systems Review of Systems: gen - no fevers or chills, eating well HENT - chronic runny nose, otherwise no sore throat or ear pain cv - no chest pain at rest or with exertion pulm - no dyspnea or dyspnea on exertion GI - no abd pain or nausea/emesis/blood in stool - no dysuria, but reports urinary frequency today musculo - chronic knee pain b/l endo - does not check blood sugars at home neuro - mild numbness/tingling of left foot - now resolved skin - chronic rash left knee region - follows with dermatology Physical Exam Physical Exam: gen - NAD, pleasant eyes - lens implants b/l, PERRL mouth - MMM, no lesions neck - no JVD, no lymph nodes, no thyroid masses heart - RRR, s1 s2, no murmur lungs - CTA b/l abd - soft NT ND BS+, no HSM ext - no edema vascular - right popliteal pulse 2+, left popliteal pulse 0; left DP and post tib pulses 0; right DP and post tib pulses 1-2+; cap refill right foot <2 sec; cap refill left foot toes prolonged - 4-5+ seconds; toes left foot mildly dusky; no gangrene or necrotic areas of left foot; with a bedside doppler I was able to doppler his left DP pulse and, to a much lesser extent, his left posterior tib pulse musculo - no joint effusions any joint upper or lower extremity neuro - strength 5/5 x 4 exts skin - mild duskiness to all toes, especially the great toe, on left foot; mild erythematous patch anterior left knee region Results & Data Results & Data Vital Signs (Past 12 Hours) Vital Signs Temp Pulse Pulse Resp BP BP Pulse Ox 02/23/24 14:15 83 18 171/83 H 97 02/23/24 13:59 87 02/23/24 09:23 36.3 C L 111 H 16 123/84 96 O2 Del Method 02/23/24 14:15 Room Air 02/23/24 13:59 02/23/24 09:23 Room Air Laboratory Results Laboratory Results - last 24 hr 02/23/24 02/23/24 02/23/24 14:00 16:11 17:08 WBC 7.33 RBC 4.71 Hgb 14.0 Hct 41.7 L MCV 88.5 MCH 29.7 MCHC 33.6 RDW Std Deviation 43.9 RDW Coeff of Maite 13.5 Plt Count 188 MPV 9.6 Immature Gran % (Auto) 0.3 Neut % (Auto) 64.4 Lymph % (Auto) 26.1 [place] % (Auto) 7.6 Eos % (Auto) 1.2 Baso % (Auto) 0.4 Neut # (Auto) 4.72 Lymph # (Auto) 1.91 [place] # (Auto) 0.56 Eos # (Auto) 0.09 Baso # (Auto) 0.03 Immature Gran # (Auto) 0.02 PT 12.8 H INR 1.2 H APTT 34 H PTT Ratio 1.3 Heparin Anti-Xa, Unfract > 1.50 H* > 1.50 H* Sodium 140 Potassium 4.2 Chloride 105 Carbon Dioxide 28 Anion Gap 7 BUN 19 Creatinine 1.07 Est Cr Clr Drug Dosing 58.4 Est GFR ( Amer) 74.5 Est GFR (Non-Af Amer) 64.3 BUN/Creatinine Ratio 17.8 Glucose 109 H POC Glucose Estimat Average Glucose Hemoglobin A1c Calcium 9.7 Total Bilirubin 0.6 AST 14 ALT 10 Alkaline Phosphatase 113 H Total Protein 7.1 Albumin 4.4 Globulin 2.7 Albumin/Globulin Ratio 1.6 Urine Color Yellow Urine Appearance Clear Urine pH 5.0 Ur Specific [place] 1.009 Urine Protein Negative Urine Glucose (UA) Negative Urine Ketones Negative Urine Blood Negative Urine Nitrite Negative Urine Bilirubin Negative Urine Urobilinogen Negative Ur Leukocyte Esterase Negative Diagnostic Findings Duplex Scan Lower Extremity Artery 02/23/24 09:48 LEFT LOWER EXTREMITY DOPPLER ULTRASOUND CLINICAL HISTORY: LLE pain - h/o popliteal aneurysm w/ stent x2 COMPARISON STUDY: Left lower extremity arterial Doppler ultrasound April 25, 2018. CTA with runoff October 02, 2017. TECHNIQUE: Grayscale, color and duplex Doppler sonography of the arterial system of the left lower extremity was performed. FINDINGS: There is moderate atherosclerotic plaque within the left lower extremity. There is triphasic flow within the left common femoral artery and the left profunda. There is also triphasic flow within the proximal to mid left superficial femoral artery. As before, there is occlusion of the distal left femoral artery, as shown on ultrasound April 17, 2018. The left popliteal artery is also occluded. There is an occluded left popliteal artery stent which is located within a 3 cm popliteal artery aneurysm. There is no flow within the proximal left posterior tibial artery. There is monophasic flow within the distal left posterior tibial artery through collaterals. There is also dampened, monophasic flow within the left anterior tibial artery and bursal is pedis through collaterals. Portions of the left peroneal artery are occluded. There is monophasic flow within remainder of the left peroneal artery. IMPRESSION: 1. 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 2. Occluded left popliteal artery stent. No change in the surrounding 3 cm popliteal artery aneurysm which does not contain flow. 3. Monophasic dampened flow within the left calf vessels through collaterals, as described above. Occluded proximal left posterior tibial artery and portions of the left peroneal artery. ACT 112: Negative or not required by law. Electronically signed by: Huang Martinez M.D. 02/23/2024 12:23 PM Venous Doppler Study 02/23/24 09:48 ULTRASOUND LEFT LOWER EXTREMITY VENOUS CLINICAL HISTORY: Left leg pain. Recently discontinued anticoagulation. COMPARISON STUDY: Left lower extremity venous ultrasound dated 09/27/2017. TECHNIQUE: Real-time, grayscale, and color Doppler sonography of the deep veins of the left lower extremity was performed from the inguinal crease to the calf. Compression and augmentation were utilized. FINDINGS: There is no sonographic evidence of deep venous thrombosis identified in the left lower extremity. The common femoral, superficial femoral, and popliteal veins are patent and normally compressible. The greater saphenous vein and the profunda femoris vein at the junction with the common femoral vein are clear. The visualized calf veins are patent. A 2.9 cm popliteal artery aneurysm is noted. See report today's arterial ultrasound for detailed findings. IMPRESSION: 1. There is no sonographic evidence of deep venous thrombosis identified in the left lower extremity. 2. A popliteal artery aneurysm is noted. This will be discussed on today's arterial study. ACT 112: Negative or not required by law. Electronically signed by: Benji Zavala M.D. 02/23/2024 11:46 AM Chest X-Ray 02/23/24 16:12 XR chest 2V PA/lateral CLINICAL HISTORY: pre-op TECHNIQUE: 2 views of the chest were obtained. Comparison: Comparison is made to chest radiograph 04/17/2018 FINDINGS: No lines and tubes are seen. Calcified aortic knob is seen. The lungs are clear. No evidence of pleural effusion or pneumothorax. IMPRESSION: No acute chest disease. ACT 112: Negative or not required by law. Electronically signed by: Jose Best M.D. 02/23/2024 4:52 PM Code Status & VTE Plan Code Status full code PG Care Time/CCT Total # of Minutes Spent Total Time Spent with Patient: Total time spent is greater than 50% in coordination of care (as documented) at patient's floor/unit and/or counseling patient: Coding Level of Care Code 14320 INT INP/OBS CARE MIN Diagnoses Popliteal artery occlusion, left I70.202 Aneurysm of left popliteal artery I72.4 Chronic anticoagulation Z79.01 PVD (peripheral vascular disease) I73.9 GERD without esophagitis K21.9 Type 2 diabetes mellitus with microalbuminuria, without long-term current use of insulin E11.29; R80.9 Dyslipidemia E78.5 Primary hypertension I10
[2024-02-23 14:33] LABS: Albumin Globulin Ratio 1.6 (0.9-2); Albumin Level 4.4 gm/dl (3.4-5.0); BUN Creatinine Ratio 17.8 (10-20); Bilirubin,Total 0.6 mg/dl (0.2-1.0); Calcium 9.7 mg/dl (8.6-10.3); Creatinine Clr Calc Pharmacy 58.4 ml/min; Est GFR (African American) 74.5 ml/min; Est GFR (Non-African American) 64.3 ml/min; Globulin 2.7 gm/dl (2.5-4.0); Potassium 4.2 mmol/L (3.5-5.1); Total Protein 7.1 gm/dl (6.0-8.3)
[2024-02-23 14:47] LABS: INR 1.2 (0.9-1.1); Partial Thromboplastin Ratio 1.3; Partial Thromboplastin Time 34 Seconds (21-31); Prothrombin Time 12.8 Seconds (9.0-12.0)
[2024-02-23 15:06] LABS: ANTI-Xa, UFH(UnfractionatedHep > 1.50 IU/ml (0.3-0.7)
--- NOTE | 2024-02-23 16:07 | Consultation ---
Date of Consultation February 23, 2024 Assessment & Plan (1) Arterial occlusion, lower extremity: Pt with acute arterial occlusion of LLE, causing mild/moderate L calf discomfort. No numbness currently and no rest pain. L toes cool, dusky, and with cap refill at 8 seconds. but good movement and sensation. + DP and PT dopplers. Pt does not wish to be transferred to [facility]. Call placed to [facility] vascular surgery data collection interviewer, felt pt should be ok to wait until Monday when Dr Mcmanus returns. Being admitted to medical service for pain control, monitoring for worsening sx, and initiation of hep drip. Discussed with hospitalist service to monitor closely for worsening sx, including foot/toe pain, inability to move or feel toes, all of which would necessitate transfer to tertiary care. Will reeval on Monday. History of Present Illness Reason for Consultation: LLE ischemia History of Present Illness 83 yo m with hx of BL popliteal aneurysms, PAD, HTN, DMII, GERD, dyslipidemia, admitted with LLE ischemia, seen in consultation today for same. Pt known to Dr Mcmanus's vascular service for his pop aneurysms and PAD, underwent endovascular LLE pop aneurysm repair in 2018, which developed acute arterial occlusion about 6 months later, requiring mechanical thrombectomy with thrombolytics and SALES PROMOTION REPRESENTATIVE/restenting of SFA/pop arteries. Has been maintained on plavix and AC with xarelto since that time. Last seen in office in 08/19, at that time, LLE stents were patent. Pt states he held his plavix and xarelto for a colonoscopy earlier this week and restarted his plavix and AC on monday. That same day, he developed some pain in L calf and intermittent numbness in foot. Admits short distance claudication. No rest pain or severe pain or inability to ambulate. Called Dr Mcmanus's office yesterday and was advised to go to ED, but decided to come this morning instead. Imaging demonstrates occlusion of LLE stents. Pt denies RIVERS, fever, chest pain, SOB, abd pain, n/V, other complaints. Allergies Allergy/AdvReac Type Severity Reaction Status Date / Time No Known Allergies Allergy Verified 02/19/24 09:54 Home Medications Medication Instructions Recorded Confirmed Type rivaroxaban 10 mg tablet (Xarelto) 10 mg PO DAILY #30 tabs 04/27/18 02/23/24 Rx clopidogrel 75 mg tablet 75 mg PO DAILY #90 tabs 12/30/21 02/23/24 Rx blood sugar diagnostic (OneTouch #100 ea 06/30/22 08/04/23 Rx Verio test strips) blood-glucose meter (OneTouch #1 ea 06/30/22 08/04/23 Rx Verio Meter) lancets 33 gauge (OneTouch Delica #100 ea 06/30/22 08/04/23 Rx Lancets) triamcinolone acetonide 0.1 % 1 applic topical DAILY 06/30/22 02/23/24 History topical cream metformin 500 mg tablet See Rx Instructions PO DAILY #270 06/26/23 02/23/24 Rx tabs olmesartan 5 mg tablet 5 mg PO QAM #90 tabs 08/04/23 02/23/24 Rx omeprazole 20 mg capsule,delayed 20 mg PO Q2D #45 caps 08/04/23 02/23/24 Rx release rosuvastatin 10 mg tablet 10 mg PO QAM #90 tabs 08/04/23 02/23/24 Rx Patient History Medical History PVD (peripheral vascular disease) Primary hypertension Dyslipidemia Type 2 diabetes mellitus GERD (gastroesophageal reflux disease) On anticoagulant therapy PLAVIX AND XARELTO DAILY Popliteal artery aneurysm Endovascular repair MAC. 09/2017- follows w/ Dr Mcmanus Surgical History History of right cataract extraction Hx of hand surgery right Hx of arthroscopy of left knee Hx of carpal tunnel repair Hx of appendectomy S/P nasal surgery S/P carpal tunnel release S/P left knee surgery S/P appendectomy S/P aneurysm repair x 2 left leg- Dr Mcmanus- 2018 H/O colonoscopy Family History Brother Diabetes Other No pertinent family history Denies family history of Coronary heart disease Myocardial infarction Breast cancer Colorectal cancer Cancer Social History Smoking Status: Never smoker Second Hand Exposure: No; Do You Dip or Chew Tobacco: No; Hx Alcohol Use: No Hx Substance Use: No Preferred Language: Israeli Communication Ability: Effective Business Unit Manager Required: No Beliefs That Will Affect Care: None marital status: Current Living Situation: Spouse current occupational status: retired Feels Safe at Home: Yes Physical Activity Frequency: 5-6 Times per Week Seatbelt Use: never Sunscreen Use: No Assistive Devices: Denture - Upper, Denture - Lower and Glasses Review of Systems Review of Systems: All systems reviewed & are unremarkable except as noted in HPI & below Physical Exam Constitutional: WD/WN, vitals as above healthy appearing and cooperative; not in distress Neck: trachea midline Respiratory: normal respiratory effort, lungs clear to auscultation Auscultation: + diminished lung sounds Cardiovascular: Rate/Rhythm: regular rate and regular rhythm Vessels: femoral pulses present (+3 BLE), posterior tibial pulses present (LLE faint doppler) and dorsalis pedis pulses present (LLE +doppler); + abnormal peripheral pulses Extremities: + abnormal capillary refill (LLE 8 seconds) Gastrointestinal (Abdomen): Inspection/Auscultation: abdomen normal to inspection and normal bowel sounds Percussion/Palpation: abdomen soft; abdomen nontender Musculoskeletal: Extremities: strength 5/5 throughout Skin: no rashes, warm and dry Neurologic: moves all extremities (moves toes) and awake; no focal motor deficits and not confused Psychiatric: A+Ox3, euthymic affect Results & Data Vital Signs (Past 12 Hours) Vital Signs Temp Pulse Pulse Resp BP BP Pulse Ox 02/23/24 14:15 83 18 171/83 H 97 02/23/24 13:59 87 02/23/24 09:23 36.3 C L 111 H 16 123/84 96 O2 Del Method 02/23/24 14:15 Room Air 02/23/24 13:59 02/23/24 09:23 Room Air
--- NOTE | 2024-02-23 16:54 | XRay Report ---
XR chest 2V PA/lateral CLINICAL HISTORY: pre-op TECHNIQUE: 2 views of the chest were obtained. Comparison: Comparison is made to chest radiograph 04/17/2018 FINDINGS: No lines and tubes are seen. Calcified aortic knob is seen. The lungs are clear. No evidence of pleur al effusion or pneumothorax. IMPRESSION: No acute chest disease. ACT 112: Negative or not required by law. Electronically signed by: Jose Best M.D. 02/23/2024 4:52 PM
[2024-02-23 18:01] LABS: ANTI-Xa, UFH(UnfractionatedHep > 1.50 IU/ml (0.3-0.7)
[2024-02-23 18:08] LABS: Appearance Urine Clear (Clear); Bilirubin Urine Negative (Negative); Blood Urine Negative (Negative); Color Urine Yellow; Glucose Urine UA Negative (Negative); Ketones Urine Negative (Negative); Leukocyte Esterase Urine Negative (Negative); Nitrite Urine Negative (Negative); Protein Urine Negative (Negative); Specific Gravity Urine 1.009 (1.000-1.030); Urobilinogen Urine Negative (Negative)
[2024-02-23] MEDS ORDERED: ACETAMINOPHEN 325 MG TAB PO PRN (18:58)
[2024-02-23 19:04] LABS: ANTI-Xa, UFH(UnfractionatedHep > 1.50 IU/ml (0.3-0.7)
[2024-02-23] MEDS ORDERED: GLUCOSE 10 TAB/TUBE PO PRN (19:30)
[2024-02-23] MEDS ORDERED: CARBOHYDRATES FOR HYPOGLYCEMIA PO PRN (19:30)
[2024-02-23] MEDS ORDERED: GLUCAGON FOR INJ 1 MG VIAL SQ PRN (19:30)
[2024-02-23] MEDS ORDERED: DEXTROSE 50% 50 ML SYRINGE IV PRN (19:30)
[2024-02-23] MEDS ORDERED: GLUCOSE 40% GEL 15 GM TUBE PO PRN (19:30)
[2024-02-23] MEDS: INSULIN ASPART PER UNIT CHARGE SC SCH (20:38)
[2024-02-23 20:52] LABS: ANTI-Xa, UFH(UnfractionatedHep 1.33 IU/ml (0.3-0.7)
[2024-02-23 21:46] LABS: ANTI-Xa, UFH(UnfractionatedHep 0.66 IU/ml (0.3-0.7)
[2024-02-24 03:55] LABS: Partial Thromboplastin Ratio 4.1
[2024-02-24 04:30] LABS: Partial Thromboplastin Time 109 Seconds (21-31)
[2024-02-24] MEDS: PANTOprazole 40 MG TAB PO SCH (08:33)
[2024-02-24] MEDS: ROSUVASTATIN CALCIUM 10 MG TAB PO SCH (08:33)
[2024-02-24] MEDS: LOSARTAN POTASSIUM 25 MG TAB PO SCH (08:33)
[2024-02-24] MEDS: TRIAMCINOLONE ACET 0.1% CR 15 GM TUBE TOP SCH (08:33)
[2024-02-24] MEDS: POLYETHYLENE (MIRALAX) 17 GM PACK PO SCH (08:43)
[2024-02-24 09:23] LABS: Estimated Average Glucose 160 mg/dl; Hemoglobin A1C 7.2 % (4.5-5.6)
[2024-02-24 11:31] LABS: BUN Creatinine Ratio 15.9 (10-20); Calcium 9.4 mg/dl (8.6-10.3); Creatinine Clr Calc Pharmacy 55.3 ml/min; Est GFR (African American) 69.8 ml/min; Est GFR (Non-African American) 60.2 ml/min; Potassium 4.3 mmol/L (3.5-5.1)
[2024-02-24 11:56] LABS: Partial Thromboplastin Ratio 3.6
[2024-02-24 12:01] LABS: Partial Thromboplastin Time 96 Seconds (21-31)
--- NOTE | 2024-02-24 19:02 | Hospitalist Progress Note ---
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 He previously underwent endovascular repair of a left popliteal artery aneurysm with stent placement in 09/2017, followed by stent thrombosis in 03/2018 requiring thrombectomy & repeat stent placement. All prior procedures were performed by Dr Jair Pavon, [facility]. He had been off his Xarelto & Plavix prior to an outpatient colonoscopy on 02/19/24. Unfortunately, while off his anticoagulation & antiplatelet therapy, he likely occluded the popliteal artery stents sometime during that timeframe. Although there is popliteal artery occlusion it appears he has some collateral flow down to the left foot as his dorsalis pedis pulse is detectable by doppler. Further, patient denies any foot pain or paresthesias. Plan - * cont to hold Xarelto and Plavix * cont heparin infusion - at therapeutic PTT goal this afternoon (PTT 70s) * pain control with morphine IV prn or norco PO prn * continue statin agent * NPO after MN on Monday PM with tentative plans for surgical intervention on 02/26/24 * patient was counseled that if he has ANY worsening rest pain, numbness of the leg/foot, or loss of left leg/foot function he would need emergent intervention; this would require transfer to a tertiary care center ([place], [facility], etc) * of note - the ER physician assistant hairstylist, Carlitos Jorge, called & spoke with on- call vascular surgery at 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 (3) Chronic anticoagulation: Plan: Patient takes Xarelto 10mg daily & Plavix 75mg daily. Both are on hold. To use heparin infusion in tamara - standard dosing. Unfortunately, because of his Xarelto use, his anti-factor Xa levels were very high at admission (>1.5). Serial levels continued to remain high as well. Thus, will plan to use PTT levels to guide his heparin dosing rather than anti- factor Xa levels. Cont heparin infusion. Therapeutic level/target of PTT will be 60-90. (4) PVD (peripheral vascular disease): Plan: Known PAD of his legs. Follows with Dr Pavon, [facility]. (5) GERD without esophagitis: Plan: Cont PPI (6) Type 2 diabetes mellitus with microalbuminuria, without long-term current use of insulin: Plan: HOLD metformin hemoglobin a1c 7.2% controlled BSGs ac/hs DM diet Loose novolog SSI for now (7) Dyslipidemia: Plan: Cont statin LDL was 29 early in 2023 on last lipid profile check (8) Primary hypertension: Plan: Cont ARB Adjust as needed Would hold on day of surgery to reduce the risk of ihwot-operative EVELIO Plan pt's updated by phone this evening, 02/23 sent [place] message to Dr Pavon giving brief clinical update Admission and Anticipated Discharge Date Admission Date: February 23, 2024 Subjective sitting in chair at bedside denies any L foot pain, paresthesias, or loss of function denies L calf pain denies L thigh pain only complaint is minimal numbness of right foot eating fine patient worried about his - she apparently has numerous health problems - his 2 children are looking after her right now Review of Systems Review of Systems: CV - no chest pain pulm - no dyspnea or MCCLURE GI - no abd pain or N/V Physical Exam Physical Exam: gen - NAD, pleasant, sitting in the chair & looks well mouth - MMM, no lesions neck - no JVD heart - RRR, s1 s2, no murmur lungs - CTA b/l abd - soft NT ND BS+, no HSM ext - no edema vascular - right popliteal pulse 2+, left popliteal pulse 0; left DP and post tib pulses 0; right DP and post tib pulses 1-2+; cap refill right foot <2 sec; cap refill left foot toes prolonged - 5+ seconds; toes left foot minimally dusky today - slightly better in appearance than yesterday; no gangrene or necrotic areas of left foot; by report bedside doppler continues to detect a left DP pulse w/o difficulty musculo - can move all 5 toes L foot as well as ankle skin - minimal duskiness to all toes, especially the great toe, on left foot; mild erythematous patch anterior left knee region Results & Data Results & Data Vital Signs (Past 12 Hours) Vital Signs Temp Pulse Pulse Resp BP Pulse Ox O2 Del Method 02/24/24 15:32 36.9 C 69 18 158/80 H 96 Room Air 02/24/24 14:39 85 02/24/24 11:32 36.9 C 74 18 124/75 94 Room Air 02/24/24 08:00 64 02/24/24 07:40 36.7 C 73 18 139/82 94 Room Air Laboratory Results Laboratory Results - last 24 hr 02/23/24 02/23/24 02/23/24 18:08 19:54 20:32 Heparin Anti-Xa, Unfract > 1.50 H* 1.33 H* POC Glucose 152 H 02/24/24 02/24/24 02:55 07:39 APTT 109 H* PTT Ratio 4.1 POC Glucose 129 H Estimat Average Glucose 160 Hemoglobin A1c 7.2 H 02/24/24 02/24/24 02/24/24 10:57 11:31 16:21 APTT 96 H* PTT Ratio 3.6 Sodium 139 Potassium 4.3 Chloride 105 Carbon Dioxide 28 Anion Gap 6 BUN 18 Creatinine 1.13 Est Cr Clr Drug Dosing 55.3 Est GFR ( Amer) 69.8 Est GFR (Non-Af Amer) 60.2 BUN/Creatinine Ratio 15.9 Glucose 144 H POC Glucose 119 H 115 H Calcium 9.4 PG Care Time/CCT Total # of Minutes Spent Total Time Spent with Patient: Total time spent is greater than 50% in coordination of care (as documented) at patient's floor/unit and/or counseling patient: Coding Level of Care Code 41151 SUB INP/OBS CARE 2/35MIN Diagnoses Popliteal artery occlusion, left I70.202 Aneurysm of left popliteal artery I72.4 Chronic anticoagulation Z79.01 PVD (peripheral vascular disease) I73.9 GERD without esophagitis K21.9 Type 2 diabetes mellitus with microalbuminuria, without long-term current use of insulin E11.29; R80.9 Dyslipidemia E78.5 Primary hypertension I10
[2024-02-24 19:23] LABS: Partial Thromboplastin Ratio 2.8; Partial Thromboplastin Time 76 Seconds (21-31)
[2024-02-25 07:39] LABS: Partial Thromboplastin Ratio 2.9; Partial Thromboplastin Time 79 Seconds (21-31)
--- NOTE | 2024-02-25 11:31 | Hospitalist Progress Note ---
Date of Service February 25, 2024 Assessment & Plan (1) Popliteal artery occlusion, left: Plan: Acute occlusion left popliteal artery. He previously underwent endovascular repair of a left popliteal artery aneurysm with stent placement in 09/2017, followed by stent thrombosis in 03/2018 requiring thrombectomy & repeat stent placement. All prior procedures were performed by Dr Jair Pavon, [facility]. He had been off his Xarelto & Plavix prior to an outpatient colonoscopy on 02/19/24. Unfortunately, while off his anticoagulation & antiplatelet therapy, he likely occluded the popliteal artery stents sometime during that timeframe. Although there is popliteal artery occlusion it appears he has some collateral flow down to the left foot as his dorsalis pedis pulse is detectable by doppler. Further, patient denies any foot pain or paresthesias. Plan - * cont to hold Xarelto and Plavix * cont heparin infusion * NPO after midnight tonight for potential intervention tomorrow; IV fluids starting at midnight * pain control with morphine IV prn or norco PO prn * continue statin agent pre-op EKG & CXR both wnl -- from medical standpoint he is optimized for surgery hold ARB tomorrow AM (2) Aneurysm of left popliteal artery: Plan: Diagnosed 2018, s/p initial stent placement by Dr Pavon 09/2017. (3) Chronic anticoagulation: Plan: HOLD Xarelto 10mg daily & Plavix 75mg daily. Cont heparin infusion in tam[place] - standard dosing. PTT today is therapeutic; repeat PTT tomorrow. Unfortunately, because of his Xarelto use, his anti-factor Xa levels were very high at admission (>1.5). Serial levels continued to remain high as well. Cont PTT levels to guide his heparin dosing rather than anti-factor Xa levels. PTT Goal - 60-90. (4) PVD (peripheral vascular disease): Plan: Known PAD of his legs. Follows with Dr Pavon, [facility]. see above. (5) GERD without esophagitis: Plan: Cont PPI (6) Type 2 diabetes mellitus with microalbuminuria, without long-term current use of insulin: Plan: HOLD metformin hemoglobin a1c 7.2% BSGs are excellent DM diet Loose novolog SSI (7) Dyslipidemia: Plan: Cont statin LDL was 29 early in 2023 on last lipid profile check (8) Primary hypertension: Plan: Cont ARB today but hold tomorrow's dose to reduce risk of EVELIO Plan pt's updated by phone 02/23 son updated at bedside today sent [place] message to Dr Pavon again giving brief clinical update Admission and Anticipated Discharge Date Admission Date: February 23, 2024 Subjective no events overnight NSR on tele minimal numbness of L foot no pain of L foot no pain of L leg Review of Systems Review of Systems: gen - no fevers cv - no chest pain pulm - no dyspnea or MCCLURE GI - no N/V Physical Exam Physical Exam: gen - NAD, pleasant mouth - MMM, no lesions neck - no JVD heart - RRR, s1 s2, no murmur lungs - CTA b/l abd - soft NT ND BS+, no HSM ext - no edema vascular - right popliteal pulse 2+, left popliteal pulse 0; left DP and post tib pulses 0; right DP and post tib pulses 1-2+; cap refill right foot <2 sec; cap refill left foot toes prolonged - 5 seconds; toes left foot - duskiness resolved; no gangrene or necrotic areas of left foot; bedside doppler continues to detect a left DP pulse w/o difficulty musculo - can move all 5 toes L foot skin - mild erythematous patch anterior left knee region Results & Data Results & Data Vital Signs (Past 12 Hours) Vital Signs Temp Pulse Pulse Resp BP Pulse Ox O2 Del Method 02/25/24 08:10 36.7 C 58 L 18 121/70 94 Room Air 02/25/24 06:56 69 02/25/24 04:20 36.5 C 81 17 124/73 95 Room Air 02/25/24 00:46 79 02/25/24 00:00 36.7 C 77 17 118/75 94 Room Air Laboratory Results Laboratory Results - last 24 hr 02/24/24 02/24/24 02/24/24 10:57 11:31 16:21 APTT 96 H* PTT Ratio 3.6 Sodium 139 Potassium 4.3 Chloride 105 Carbon Dioxide 28 Anion Gap 6 BUN 18 Creatinine 1.13 Est Cr Clr Drug Dosing 55.3 Est GFR ( Amer) 69.8 Est GFR (Non-Af Amer) 60.2 BUN/Creatinine Ratio 15.9 Glucose 144 H POC Glucose 119 H 115 H Calcium 9.4 02/24/24 02/24/2402/24/24 18:30 20:27 05:52 APTT 76 H 79 H PTT Ratio 2.8 2.9 Sodium Potassium Chloride Carbon Dioxide Anion Gap BUN Creatinine Est Cr Clr Drug Dosing Est GFR ( Amer) Est GFR (Non-Af Amer) BUN/Creatinine Ratio Glucose POC Glucose 142 H Calcium 02/25/24 02/25/24 07:39 11:22 APTT PTT Ratio Sodium Potassium Chloride Carbon Dioxide Anion Gap BUN Creatinine Est Cr Clr Drug Dosing Est GFR ( Amer) Est GFR (Non-Af Amer) BUN/Creatinine Ratio Glucose POC Glucose 131 H 111 H Calcium PG Care Time/CCT Total # of Minutes Spent Total Time Spent with Patient: Total time spent is greater than 50% in coordination of care (as documented) at patient's floor/unit and/or counseling patient: Coding Level of Care Code 71350 SUB INP/OBS CARE 2/35MIN Diagnoses Popliteal artery occlusion, left I70.202 Aneurysm of left popliteal artery I72.4 Chronic anticoagulation Z79.01 PVD (peripheral vascular disease) I73.9 GERD without esophagitis K21.9 Type 2 diabetes mellitus with microalbuminuria, without long-term current use of insulin E11.29; R80.9 Dyslipidemia E78.5 Primary hypertension I10
--- NOTE | 2024-02-25 16:32 | Electrocardiogram Report ---
Test Reason : Blood Pressure : */* mmHG Vent. Rate : 66 BPM Atrial Rate : 66 BPM P-R Int : 146 ms QRS Dur : 90 ms QT Int : 380 ms P-R-T Axes : 70 -24 47 degrees QTcB Int : 398 ms Sinus rhythm with marked sinus arrhythmia Nonspecific ST abnormality Abnormal ECG When compared with ECG of 25-Apr-2018 16:36, Premature ventricular complexes are no longer Present Confirmed by Leona Shin (Nidia) on 02/25/2024 4:32:25 PM Referred By: Jair Pavon Confirmed By: Leona Shin
[2024-02-26] MEDS: SODIUM CHLORIDE 0.9% 1,000 ML IV SCH (00:30)
[2024-02-26 07:55] LABS: Calcium 9.1 mg/dl (8.6-10.3); Est GFR (African American) 61.8 ml/min; Est GFR (Non-African American) 53.3 ml/min
[2024-02-26 08:02] LABS: Partial Thromboplastin Ratio 2.9; Partial Thromboplastin Time 77 Seconds (21-31)
--- NOTE | 2024-02-26 10:54 | Surgery Progress Note ---
Date of Service February 26, 2024 Assessment & Plan (1) Arterial occlusion, lower extremity: Plan: Pt with acute arterial occlusion, now almost 1 week since sx began. L foot appears improved since 3 days ago. Planning on LLE angio with intervention in OR tomorrow. If unable to revascularize endovascularly, will consider for LLE fem-pop bypass later this week. Pt understands and is agreeable. Admission and Anticipated Discharge Date Admission Date: February 23, 2024 Subjective 83 yo m with LLE acute arterial occlusion, seen in f/u today. Pt states having some L heel pain since overnight. No other new complaints. Review of Systems Review of Systems: All systems reviewed & are unremarkable except as noted in HPI & below Physical Exam Constitutional: WD/WN, vitals as above healthy appearing; not in distress Cardiovascular: Vessels: posterior tibial pulses present (LLE dopplerable) and dorsalis pedis pulses present (LLE dopplerable) Extremities: + abnormal capillary refill (6 seconds) L foot warm, improved color since 3 days ago Results & Data Vital Signs (Past 12 Hours) Vital Signs Temp Pulse Resp BP Pulse Ox O2 Del Method 02/26/24 07:45 36.6 C 88 18 132/68 94 Room Air 02/26/24 04:19 36.4 C L 69 17 114/70 93 Room Air 02/25/24 23:38 36.7 C 81 17 115/61 96 Room Air
--- NOTE | 2024-02-26 19:16 | Hospitalist Progress Note ---
Date of Service February 26, 2024 Assessment & Plan (1) Popliteal artery occlusion, left: Plan: Acute occlusion left popliteal artery. He previously underwent endovascular repair of a left popliteal artery aneurysm with stent placement in 09/2017, followed by stent thrombosis in 03/2018 requiring thrombectomy & repeat stent placement. All prior procedures were performed by Dr Jair Pavon, [facility]. He had been off his Xarelto & Plavix prior to an outpatient colonoscopy on 02/19/24. Unfortunately, while off his anticoagulation & antiplatelet therapy, he likely occluded the popliteal artery stents sometime during that timeframe. Although there is popliteal artery occlusion it appears he has some collateral flow down to the left foot as his dorsalis pedis pulse is detectable by doppler. No OR today thus d/c NPO status. Plan - * cont to hold Xarelto and Plavix * cont heparin infusion * NPO after midnight tonight for potential intervention tomorrow * pain control with morphine IV prn or norco PO prn * continue statin agent pre-op EKG & CXR both wnl -- from medical standpoint he is optimized for surgery hold ARB hiwot-operatively (2) Aneurysm of left popliteal artery: Plan: Diagnosed 2018, s/p initial stent placement by Dr Pavon 09/2017. (3) Chronic anticoagulation: Plan: HOLD Xarelto 10mg daily & Plavix 75mg daily. Cont heparin infusion in [place] - standard dosing. PTT today again therapeutic; repeat PTT tomorrow. Unfortunately, because of his Xarelto use, his anti-factor Xa levels were very high at admission (>1.5). Serial levels continued to remain high as well. Cont PTT levels to guide his heparin dosing rather than anti-factor Xa levels. PTT Goal - 60-90. (4) PVD (peripheral vascular disease): Plan: Known PAD of his legs. Follows with Dr Pavon, [facility]. see above. (5) GERD without esophagitis: Plan: Cont PPI (6) Type 2 diabetes mellitus with microalbuminuria, without long-term current use of insulin: Plan: HOLD metformin hemoglobin a1c 7.2% BSGs well-controlled DM diet Loose novolog SSI (7) Dyslipidemia: Plan: Cont statin LDL was 29 early in 2023 on last lipid profile check (8) Primary hypertension: Plan: hold ARB Plan pt's updated by phone 02/24/24 son updated at bedside yesterday and today Admission and Anticipated Discharge Date Admission Date: February 23, 2024 Subjective patient reports mild pain over the medial left ankle overnight scant numbness of left foot no loss of function otherwise feels well tele wnl overnight Review of Systems Review of Systems: CV - no chest pain pulm - no dyspnea GI - moving bowels; no N/V Physical Exam Physical Exam: gen - NAD, pleasant, looks well mouth - MMM, no lesions neck - no JVD heart - RRR, s1 s2, no murmur lungs - CTA b/l abd - soft NT ND BS+, no HSM ext - no edema vascular - right popliteal pulse 2+, left popliteal pulse 0; left DP and post tib pulses 0; right DP and post tib pulses 1-2+; cap refill right foot <2 sec; cap refill left foot toes prolonged but slightly better than yesterday; toes left foot - duskiness resolved; no gangrene or necrotic areas of left foot; bedside doppler continues to detect a left DP pulse w/o difficulty musculo - can move all 5 toes L foot; left ankle - no synovitis; I cannot induced any pain to palpation of the ankle skin - mild erythematous patch anterior left knee region - improved with steroid cream Results & Data Results & Data Vital Signs (Past 12 Hours) Vital Signs Temp Pulse Resp BP Pulse Ox O2 Del Method 02/26/24 15:53 36.6 C 74 18 137/80 96 Room Air 02/26/24 11:54 36.5 C 77 18 120/72 94 Room Air 02/26/24 07:45 36.6 C 88 18 132/68 94 Room Air Laboratory Results Laboratory Results - last 24 hr 02/25/24 02/26/24 02/26/24 20:47 06:51 11:39 APTT 77 H PTT Ratio 2.9 Sodium 140 Potassium 4.0 Chloride 105 Carbon Dioxide 28 Anion Gap 7 BUN 20 Creatinine 1.25 Est Cr Clr Drug Dosing 50.0 Est GFR ( Amer) 61.8 Est GFR (Non-Af Amer) 53.3 BUN/Creatinine Ratio 16.0 Glucose 137 H POC Glucose 122 H 181 H Calcium 9.1 02/26/24 16:20 APTT PTT Ratio Sodium Potassium Chloride Carbon Dioxide Anion Gap BUN Creatinine Est Cr Clr Drug Dosing Est GFR ( Amer) Est GFR (Non-Af Amer) BUN/Creatinine Ratio Glucose POC Glucose 122 H Calcium PG Care Time/CCT Total # of Minutes Spent Total Time Spent with Patient: Total time spent is greater than 50% in coordination of care (as documented) at patient's floor/unit and/or counseling patient: Coding Level of Care Code 25874 SUB INP/OBS CARE 2/35MIN Diagnoses Popliteal artery occlusion, left I70.202 Aneurysm of left popliteal artery I72.4 Chronic anticoagulation Z79.01 PVD (peripheral vascular disease) I73.9 GERD without esophagitis K21.9 Type 2 diabetes mellitus with microalbuminuria, without long-term current use of insulin E11.29; R80.9 Dyslipidemia E78.5 Primary hypertension I10
[2024-02-27 06:07] LABS: Partial Thromboplastin Ratio 2.8; Partial Thromboplastin Time 74 Seconds (21-31)
[2024-02-27] MEDS: SODIUM CHLORIDE 0.9% 1,000 ML IV SCH (08:00)
--- NOTE | 2024-02-27 08:00 | History & Physical Bridge Note ---
Date of Service February 27, 2024 History & Physical Bridge Note I have examined the patient, reviewed the History & Physical and in the interval since the performance of the History & Physical I have noted the following changes of clinical significance: no changes noted Patient for a left leg angio with possible intervention. I have discussed the risks options and benefits of the procedure with the patient. The patient understands the risks options and benefits and agrees to the procedure.
[2024-02-27] MEDS: ceFAZolin 2000MG 2,000 MG/15 ML SYR IV ONE (08:02)
--- NOTE | 2024-02-27 08:33 | Pre Anesthesia Assessment ---
Date of Service February 27, 2024 Pre Sedation Assessment Vital Signs Temp Pulse Pulse Resp BP Pulse Ox O2 Del Method 02/27/24 08:30 78 22 135/81 98 Oxymask 02/27/24 08:20 78 26 H 145/80 H 98 Oxymask 02/27/24 07:23 36.9 C 86 16 130/82 96 Room Air 02/27/24 03:30 36.4 C L 79 16 111/68 94 Room Air 02/26/24 22:28 36.6 C 77 18 94/57 L 94 Room Air 02/26/24 21:55 70 02/26/24 19:40 36.5 C 70 18 118/73 94 Room Air 02/26/24 15:53 36.6 C 74 18 137/80 96 Room Air 02/26/24 11:54 36.5 C 77 18 120/72 94 Room Air O2 Flow Rate 02/27/24 08:30 2 02/27/24 08:20 2 02/27/24 07:23 02/27/24 03:30 02/26/24 22:28 02/26/24 21:55 02/26/24 19:40 02/26/24 15:53 02/26/24 11:54 Cardiovascular RRR, no murmur, no edema Respiratory normal respiratory effort, lungs clear to auscultation Pre-Sedation Airway Assessment Smoking Status: Never smoker Hx Sleep Apnea: No Short, Thick Neck: No Thyromental Distance: > or= 3.5 Finger Breadths Oral Cavity: + WNL Mallampati Class: III ASA: ASA3 NPO Status Date of Last Intake of Fluids: 02/26/24 Time of Last Intake of Fluids: 21:00 Date of Last Intake of Solid Food: 02/26/24 Time of Last Intake of Solid Foods: 18:00 Procedure Planning Contraindications for Sedation: none Current Medications Reviewed: Yes Notes The planned sedation has been discussed with the patient. Informed Consent was obtained. I have identified the patient, determined the appropriateness of sedation and have assessed the patient immediately prior to the procedure. All medicine(s) and interventions are by my order.
[2024-02-27] MEDS: fentaNYL citrate PF 100 MCG/2 ML VIAL ONE (08:35)
[2024-02-27] MEDS: LIDOCAINE 1% LOCAL 20 ML VIAL ONE (08:36)
[2024-02-27] MEDS: MIDAZOLAM HCL 1 MG/ML 2ML VIAL ONE (08:36)
[2024-02-27] MEDS: HEPARIN SOD (PORCINE) 1000 UNIT/ML ONE (09:06)
[2024-02-27] MEDS ORDERED: Nursing to Pharmacy Communication SCH (09:15)
[2024-02-27] MEDS ORDERED: ALTEPLASE, RECOMBINANT 20 MG in 0.9 % SODIUM CHLORIDE 80 ML INTRVAS ONE (09:30)
[2024-02-27] MEDS: VISIPAQUE IV PRN (09:52)
--- NOTE | 2024-02-27 09:56 | Post Operative Brief Note ---
Immediate Post Op Note Date of Surgery February 27, 2024 Pre & Post Diagnosis Operation Date: 02/27/24 10:20 Pre-Op Diagnosis: Left Popliteal Artery Occlusion Post-Op Diagnosis: Left Popliteal Artery Occlusion I identified the patient and participated in the time-out.: Yes Procedure Operation Date: 02/27/24 10:20 Actual Procedures p Left Leg Arteriogram,Insertion of Infusion Catheter,Start of TPA Infusion,Moderate Sedation [id number](Right) - Jair Pavon MD Surgeon Jair Pavon MD Manufacturing Quality Manager MD Cassi Estimated Blood Loss 10 Findings Consistent with Post-Op Diagnosis Anesthesia Type RN Sedation Complications none Disposition Accompanied Patient To Recovery: No Disposition: Recovery Room
--- NOTE | 2024-02-27 09:59 | Operative Report ---
Post Operative Report Pre & Post Diagnosis Operation Date: 02/27/24 10:20 Pre-Op Diagnosis: Left Popliteal Artery Occlusion Post-Op Diagnosis: Left Popliteal Artery Occlusion I identified the patient and participated in the time-out.: Yes Procedure Operation Date: 02/27/24 10:20 Actual Procedures p Left Leg Arteriogram,Insertion of Infusion Catheter,Start of TPA Infusion,Moderate Sedation [id number](Right) - Jair Pavon MD Surgeon Jair Pavon MD Beauty Advisor Jair Pavon MD Estimated Blood Loss 10 Findings Consistent with Post-Op Diagnosis Occlusion of the left distal SFA just proximal to the prior stent. Occlusion extending through the stented popliteal artery. There is distal reconstitution at the distal popliteal with an intact AT through the foot. 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 Patient was holding his anticoagulation in preparation for another procedure when one week ago he developed acute left leg pain. A arterial duplex showed occlusion of his left popliteal artery stent. His symptoms were consistent with [place] acute limb ischemia stage I of the left lower extremity for which he was brought to the operating room for the above mentioned procedure. Description of Procedure The patient was taken to the operating room and placed in a supine position. Pre-operative antibiotics, 2g Ancef, were administered and conscious sedation was given, Versed 1mg and Fentanyl 50mcg. The right groin was prepped and draped in the usual sterile fashion. Using ultrasound guidance, the right groin was accessed using micropuncture technique. The J wire advanced into the left common femoral artery and the micropuncture needle was exchanged for a 5Fr sheath. The J wire was removed and an 0.35'' angled glide wire was advanced into the infrarenal aorta followed by a Rim Catheter. The Rim Catheter was used to advance the angled glide wire into the left common, then external, [employer], and finally the SFA. The rim catheter was advanced to the proximal SFA and a diagnostic angiogram of the left lower extremity was performed, significant for occlusion of the distal SFA, stented popliteal artery, with reconstitution of the distal popliteal with an AT reaching the foot. The angled glide wire was exchanged for a stiff glide wire over which the 5Fr sheath was exchanged for a 65cm 6Fr destination sheath terminating in the mid SFA. The angled glide wire and quickcross catheter was used to cross the occlusion. Once across an angiogram was performed confirming true lumen. The 6Fr sheath was then upsized to an 8Fr, terminating in the left [employer]. A 5Fr 30cm Sullivan intraarterial infusion catheter was then advanced over the wire across the occluded lesion. Positioning was confirmed. The intraarterial infusion catheter was set to run an infusion of TPA. Heparin was set to the sheath. Sterile dressings were applied. Hemostasis was obtained. PT signals were confirmed. The patient was transferred to the ICU in stable condition. A total of 40cc contrast, 11.6min fluoro time and 66mGy were used for the duration of the case Dr. Pavon was present and scrubbed for the entire procedure. I attest to the content of the Intraoperative Record and any orders documented therein. Any exceptions are noted below. Supervising Physician Co-Signing Physician Notes Jair Pavon MD
[2024-02-27 11:21] LABS: Fibrinogen 446 mg/dl (184-400); Partial Thromboplastin Ratio 3.2
[2024-02-27 11:32] LABS: Partial Thromboplastin Time 86 Seconds (21-31)
[2024-02-27] MEDS: ALTEPLASE IV ONE (11:53)
[2024-02-27] MEDS: RECOMBINANT IV ONE (11:53)
[2024-02-27] MEDS: SODIUM CHLORIDE 0.9% IV ONE (11:53)
[2024-02-27] MEDS: HEPARIN SODIUM/DEXTROSE 25,000 UNIT/500 ML BAG IV SCH (11:54)
[2024-02-27] MEDS: MoRPHine SULFATE 2 MG/ML CARP IV PRN (15:02)
--- NOTE | 2024-02-27 15:03 | Critical Care Consultation ---
Date of Consultation February 27, 2024 Assessment & Plan (1) Popliteal artery occlusion, left: Continuous infusion of heparin and tPA -Patient reported increased pain in approximately 315, analgesics administered and Dr. Pavon to be notified. History of Present Illness Reason for Consultation: Intra-arterial tPA Attending Physician: Carmela Morocho MD History of Present Illness Patient is an 83-year-old male who presented for operative intervention of a left popliteal artery occlusion with indwelling catheter and tPA administration Allergies Allergy/AdvReac Type Severity Reaction Status Date / Time No Known Allergies Allergy Verified 02/19/24 09:54 Home Medications Medication Instructions Recorded Confirmed Type rivaroxaban 10 mg tablet (Xarelto) 10 mg PO DAILY #30 tabs 04/27/18 02/23/24 Rx clopidogrel 75 mg tablet 75 mg PO DAILY #90 tabs 12/30/21 02/23/24 Rx blood sugar diagnostic (OneTouch #100 ea 06/30/22 08/04/23 Rx Verio test strips) blood-glucose meter (ReSnapTouch #1 ea 06/30/22 08/04/23 Rx Verio Meter) lancets 33 gauge (OneTouch Delica #100 ea 06/30/22 08/04/23 Rx Lancets) triamcinolone acetonide 0.1 % 1 applic topical DAILY 06/30/22 02/23/24 History topical cream metformin 500 mg tablet See Rx Instructions PO DAILY #270 06/26/23 02/23/24 Rx tabs olmesartan 5 mg tablet 5 mg PO QAM #90 tabs 08/04/23 02/23/24 Rx omeprazole 20 mg capsule,delayed 20 mg PO Q2D #45 caps 08/04/23 02/23/24 Rx release rosuvastatin 10 mg tablet 10 mg PO QAM #90 tabs 08/04/23 02/23/24 Rx Patient History Medical History PVD (peripheral vascular disease) Primary hypertension Dyslipidemia Type 2 diabetes mellitus GERD (gastroesophageal reflux disease) On anticoagulant therapy PLAVIX AND XARELTO DAILY Popliteal artery aneurysm Endovascular repair MAC. 09/2017- jah w/ Dr Pavon Surgical History History of right cataract extraction Hx of hand surgery right Hx of arthroscopy of left knee Hx of carpal tunnel repair Hx of appendectomy S/P nasal surgery S/P carpal tunnel release S/P left knee surgery S/P appendectomy S/P aneurysm repair x 2 left leg- Dr Pavon- 2018 H/O colonoscopy Family History Brother Diabetes Mother Cancer Father Atherosclerotic cardiovascular disease Denies family history of Coronary heart disease Myocardial infarction Breast cancer Colorectal cancer Social History Smoking Status: Never smoker Second Hand Exposure: No; Do You Dip or Chew Tobacco: No; Hx Alcohol Use: No Hx Substance Use: No Preferred Language: [place]an Communication Ability: Effective Stenographer [employer] Required: No Beliefs That Will Affect Care: None marital status: Current Living Situation: Spouse current occupational status: retired current occupation: worked at [employer] Feels Safe at Home: Yes Safety Concerns: Feels Safe At This Time Physical Activity Frequency: 5-6 Times per Week Seatbelt Use: never Sunscreen Use: No Assistive Devices: None Physical Exam Physical Exam: General: Alert. nontoxic. Skin: Warm, dry, Head: Atraumatic Ears, nose, mouth and throat: airway patent Cardiovascular: Normal sinus rhythm on bedside monitor Groin: Indwelling catheter in place Respiratory: no respiratory distress Gastrointestinal: Non distended Musculoskeletal: Decreased pulses on left lower extremity with decreased capillary refill Results & Data Results & Data Vital Signs (Past 12 Hours) Vital Signs Temp Pulse Pulse Resp BP BP Pulse Ox 02/27/24 14:00 81 19 98 02/27/24 14:00 106/70 02/27/24 13:09 87 17 96 02/27/24 13:01 131/81 02/27/24 12:57 74 21 94 02/27/24 12:36 36.6 C 02/27/24 12:03 76 19 95 02/27/24 12:01 138/83 02/27/24 11:54 82 20 96 02/27/24 11:00 143/93 H 02/27/24 11:00 75 14 96 02/27/24 10:45 80 23 93 02/27/24 09:40 82 19 159/87 H 100 02/27/24 09:35 83 19 150/88 H 100 02/27/24 09:34 87 02/27/24 09:30 80 22 151/85 H 100 02/27/24 09:25 83 21 158/82 H 99 02/27/24 09:20 83 23 142/80 H 99 02/27/24 09:15 84 18 145/73 H 98 02/27/24 09:10 83 24 137/80 98 02/27/24 09:05 83 23 116/78 97 02/27/24 09:00 82 26 H 129/68 98 02/27/24 08:55 86 23 131/78 96 02/27/24 08:50 81 21 138/70 96 02/27/24 08:45 79 22 127/75 98 02/27/24 08:40 80 22 120/66 94 02/27/24 08:35 76 16 140/77 97 02/27/24 08:30 78 22 135/81 98 02/27/24 08:20 78 26 H 145/80 H 98 02/27/24 07:23 36.9 C 86 16 130/82 96 02/27/24 03:30 36.4 C L 79 16 111/68 94 O2 Del Method O2 Flow Rate 02/27/24 14:00 02/27/24 14:00 02/27/24 13:09 02/27/24 13:01 02/27/24 12:57 02/27/24 12:36 02/27/24 12:03 02/27/24 12:01 02/27/24 11:54 02/27/24 11:00 02/27/24 11:00 02/27/24 10:45 02/27/24 09:40 Oxymask 2 02/27/24 09:35 Oxymask 2 02/27/24 09:34 02/27/24 09:30 Oxymask 2 02/27/24 09:25 Oxymask 2 02/27/24 09:20 Oxymask 2 02/27/24 09:15 Oxymask 2 02/27/24 09:10 Oxymask 2 02/27/24 09:05 Oxymask 2 02/27/24 09:00 Oxymask 2 02/27/24 08:55 Oxymask 2 02/27/24 08:50 Oxymask 2 10/01/24 08:45 Oxymask 2 02/27/24 08:40 Oxymask 2 02/27/24 08:35 Oxymask 2 02/27/24 08:30 Oxymask 2 02/27/24 08:20 Oxymask 2 02/27/24 07:23 Room Air 02/27/24 03:30 Room Air Critical Care Results & Data Vital Signs (Past 12 Hours) Vital Signs Temp Pulse Pulse Resp BP BP Pulse Ox 02/27/24 14:00 81 19 98 02/27/24 14:00 106/70 02/27/24 13:09 87 17 96 02/27/24 13:01 131/81 02/27/24 12:57 74 21 94 02/27/24 12:36 36.6 C 02/27/24 12:03 76 19 95 02/27/24 12:01 138/83 02/27/24 11:54 82 20 96 02/27/24 11:00 143/93 H 02/27/24 11:00 75 14 96 02/27/24 10:45 80 23 93 02/27/24 09:40 82 19 159/87 H 100 02/27/24 09:35 83 19 150/88 H 100 02/27/24 09:34 87 02/27/24 09:30 80 22 151/85 H 100 02/27/24 09:25 83 21 158/82 H 99 02/27/24 09:20 83 23 142/80 H 99 02/27/24 09:15 84 18 145/73 H 98 02/27/24 09:10 83 24 137/80 98 02/27/24 09:05 83 23 116/78 97 02/27/24 09:00 82 26 H 129/68 98 02/27/24 08:55 86 23 131/78 96 02/27/24 08:50 81 21 138/70 96 02/27/24 08:45 79 22 127/75 98 02/27/24 08:40 80 22 120/66 94 02/27/24 08:35 76 16 140/77 97 02/27/24 08:30 78 22 135/81 98 02/27/24 08:20 78 26 H 145/80 H 98 02/27/24 07:23 36.9 C 86 16 130/82 96 02/27/24 03:30 36.4 C L 79 16 111/68 94 O2 Del Method O2 Flow Rate 02/27/24 14:00 02/27/24 14:00 02/27/24 13:09 02/27/24 13:01 02/27/24 12:57 02/27/24 12:36 02/27/24 12:03 02/27/24 12:01 02/27/24 11:54 02/27/24 11:00 02/27/24 11:00 02/27/24 10:45 02/27/24 09:40 Oxymask 2 02/27/24 09:35 Oxymask 2 02/27/24 09:34 02/27/24 09:30 Oxymask 2 02/27/24 09:25 Oxymask 2 02/27/24 09:20 Oxymask 2 02/27/24 09:15 Oxymask 2 02/27/24 09:10 Oxymask 2 02/27/24 09:05 Oxymask 2 02/27/24 09:00 Oxymask 2 02/27/24 08:55 Oxymask 2 02/27/24 08:50 Oxymask 2 02/27/24 08:45 Oxymask 2 02/27/24 08:40 Oxymask 2 02/27/24 08:35 Oxymask 2 02/27/24 08:30 Oxymask 2 02/27/24 08:20 Oxymask 2 02/27/24 07:23 Room Air 02/27/24 03:30 Room Air Lab & Micro Results (Past 24 Hours) No Data to Display No Data to Display No Data to Display I & O Totals 24 Hours 02/26/24 02/27/24 02/28/24 06:59 06:59 06:59 Intake Total 1333.333 / 5766.164 4193.833 / 1450.833 250 / 250 Output Total 700 / 700 600 / 600 600 / 600 Balance 633.333 / 633.333 850.833 / 850.833 -350 / -350 Cumulative 02/23/24 09:13 thru 02/27/24 12:45 Intake Total 3888.556 Output Total 3775 Balance 113.556 RT Ventilator Mngmt (Last Documented) Ventilator Ordered Settings Respiratory Rate 19 02/27/24 14:00 Ventilator - PT Measurements Respiratory Rate 19 Coding Level of Care Code 34559 IN/OBS CONSULT LVL 3,45M Diagnoses Popliteal artery occlusion, left I70.202
[2024-02-27] MEDS: HYDROCODONE/ACETAMINOPHEN 7.5/325MG TAB PO PRN (15:14)
[2024-02-27 16:46] LABS: Basophils # (auto) 0.02 K/uL (0.00-0.20); Basophils % (auto) 0.3 %; Eosinophils % (auto) 1.3 %; Hematocrit (blood only) 40.6 % (42.0-52.0); Hemoglobin 13.5 g/dl (14.0-18.0); Immature Granulocytes # (auto) 0.02 K/uL (0.01-0.20); Immature Granulocytes % (auto) 0.3 %; Lymphocytes % (auto) 19.1 %; Mean Corpuscular Hemoglobin 29.3 pg (25.0-34.0); Mean Corpuscular Hgb Conc 33.3 g/dL (32.0-36.0); Mean Corpuscular Volume 88.3 fL (80.0-100.0); Mean Platelet Volume 9.6 fL (9.4-12.4); Monocytes # (auto) 0.51 K/uL (0.11-0.59); Monocytes % (auto) 6.5 %; Neutrophils % (auto) 72.5 %; Platelet Count 153 K/uL (130-400); RDW Coefficient of Variation 13.7 % (11.5-14.5); RDW Standard Deviation 43.8 fL (36.4-46.3); White Blood Count 7.85 K/ul (4.8-10.8)
[2024-02-27 17:06] LABS: Fibrinogen 365 mg/dl (184-400)
[2024-02-27 17:08] LABS: Partial Thromboplastin Ratio 1.2; Partial Thromboplastin Time 33 Seconds (21-31)
[2024-02-27] MEDS: HYDROmorphone INJ 0.5 MG/0.5 ML SYR IV PRN (17:16)
[2024-02-27] MEDS: ONDANSETRON INJ 2 MG/ML 2 ML VIAL IV PRN (17:22)
--- NOTE | 2024-02-27 17:53 | Hospitalist Progress Note ---
Date of Service February 27, 2024 Assessment & Plan (1) Popliteal artery occlusion, left: Plan: Acute occlusion left popliteal artery. He previously underwent endovascular repair of a left popliteal artery aneurysm with stent placement in 09/2017, followed by stent thrombosis in 03/2018 requiring thrombectomy & repeat stent placement. All prior procedures were performed by Dr Jair Pavon, [facility]. He had been off his Xarelto & Plavix prior to an outpatient colonoscopy on 02/19/24. Unfortunately, while off his anticoagulation & antiplatelet therapy, he likely occluded the popliteal artery stents sometime during that timeframe. underwent left lower extremity angiogram 02/[address] Pavon, he is being treated with continuation of heparin drip as well as intraarterial tPA, with plan to reassess tomorrow * cont to hold Xarelto and Plavix * cont heparin infusion * NPO after midnight tonight for potential intervention tomorrow * pain control with morphine IV prn or norco PO prn * continue statin increased left leg pain, increased paleness and loss of DP/PT pulse by Doppler Doppler were discussed with Dr. Pavon today by ICU nursing staff - advised continuing current treatment continue pain control as this evolution to be expected during treatment with tPA (2) Aneurysm of left popliteal artery: Plan: Diagnosed 2017, s/p initial stent placement by Dr Pavon 09/2017. (3) Chronic anticoagulation: Plan: HOLD Xarelto 10mg daily & Plavix 75mg daily. Cont heparin infusion (4) PVD (peripheral vascular disease): Plan: Known PAD of his legs. Follows with Dr Pavon, [facility]. see above. (5) Type 2 diabetes mellitus with microalbuminuria, without long-term current use of insulin: Plan: HOLD metformin hemoglobin a1c 7.2% BSGs well-controlled DM diet Loose novolog SSI - reviewed blood glucoses today, at goal (6) Dyslipidemia: Plan: Cont statin LDL was 29 early in 2023 on last lipid profile check (7) Primary hypertension: Plan: hold ARB Plan his son was at the bedside for update this afternoon Admission and Anticipated Discharge Date Admission Date: February 23, 2024 Subjective underwent angiogram of left lower extremity today by Dr. Pavon, vascular access is in place for intra-arterial thrombolytic I saw him in the afternoon following the procedure, around 3:15 PM he had increase in left leg pain that became severe and is extremity appeared more pale DP PT pulses not palpable or dopplerable his pain significantly improved after administration of some morphine Physical Exam 2 Physical Exam: PHYSICAL EXAMINATION Last 24h vital signs reviewed, see documentation in flowsheet General: comfortable appearing, no distress HEENT: Normocephalic, atraumatic, pupils round and equal, sclerae anicteric, no conjunctival injection, moist mucus membranes Lungs: Normal respiratory effort. Clear to auscultation bilaterally. No RRW Heart: Regular rate and rhythm, no murmurs. No JVD Abdomen: not on nondistended bowel sounds present Extremities: left leg is pale below mid weiss and mildly cool, I could not Doppler a DP or PT pulse but I was able to Doppler popliteal pulse as well as palpate a popliteal pulse he has vascular access sheath in right groin that is covered by large surgical dressing currently, right lower extremity is warm and well-perfused Neuro: Alert and oriented x 4, face symmetric, moves 4 extremities well Psych: Normal affect and behavior Results & Data Results & Data Vital Signs (Past 12 Hours) Vital Signs Temp Pulse Pulse Resp BP BP Pulse Ox 02/27/24 17:07 78 14 178/95 H 95 02/27/24 16:34 37.1 C 96 H 22 156/97 H 96 02/27/24 15:40 91 H 16 170/91 H 95 02/27/24 15:10 178/101 H 02/27/24 15:09 102 H 19 94 02/27/24 15:00 99 H 26 H 95 02/27/24 15:00 180/96 H 02/27/24 14:51 81 16 95 02/27/24 14:00 81 19 98 02/27/24 14:00 106/70 02/27/24 13:09 87 17 96 02/27/24 13:01 131/81 02/27/24 12:57 74 21 94 02/27/24 12:36 36.6 C 02/27/24 12:03 76 19 95 02/27/24 12:01 138/83 02/27/24 11:54 82 20 96 02/27/24 11:00 143/93 H 02/27/24 11:00 75 14 96 02/27/24 10:45 80 23 93 02/27/24 09:40 82 19 159/87 H 100 02/27/24 09:35 83 19 150/88 H 100 02/27/24 09:34 87 02/27/24 09:30 80 22 151/85 H 100 02/27/24 09:25 83 21 158/82 H 99 02/27/24 09:20 83 23 142/80 H 99 02/27/24 09:15 84 18 145/73 H 98 02/27/24 09:10 83 24 137/80 98 02/27/24 09:05 83 23 116/78 97 02/27/24 09:00 82 26 H 129/68 98 02/27/24 08:55 86 23 131/78 96 02/27/24 08:50 81 21 138/70 96 02/27/24 08:45 79 22 127/75 98 02/27/24 08:40 80 22 120/66 94 02/27/24 08:35 76 16 140/77 97 02/27/24 08:30 78 22 135/81 98 02/27/24 08:20 78 26 H 145/80 H 98 02/27/24 07:23 36.9 C 86 16 130/82 96 O2 Del Method O2 Flow Rate 02/27/24 17:07 Room Air 02/27/24 16:34 Room Air 02/27/24 15:40 Room Air 02/27/24 15:10 02/27/24 15:09 02/27/24 15:00 02/27/24 15:00 02/27/24 14:51 02/27/24 14:00 02/27/24 14:00 02/27/24 13:09 02/27/24 13:01 02/27/24 12:57 02/27/24 12:36 02/27/24 12:03 02/27/24 12:01 02/27/24 11:54 02/27/24 11:00 02/27/24 11:00 02/27/24 10:45 02/27/24 09:40 Oxymask 2 02/27/24 09:35 Oxymask 2 02/27/24 09:34 02/27/24 09:30 Oxymask 2 02/27/24 09:25 Oxymask 2 02/27/24 09:20 Oxymask 2 02/27/24 09:15 Oxymask 2 02/27/24 09:10 Oxymask 2 02/27/24 09:05 Oxymask 2 02/27/24 09:00 Oxymask 2 02/27/24 08:55 Oxymask 2 02/27/24 08:50 Oxymask 2 02/27/24 08:45 Oxymask 2 02/27/24 08:40 Oxymask 2 02/27/24 08:35 Oxymask 2 02/27/24 08:30 Oxymask 2 02/27/24 08:20 Oxymask 2 02/27/24 07:23 Room Air Laboratory Results 02/27/24 16:15 02/26/24 06:51 PG Care Time/CCT Total # of Minutes Spent Total Time Spent with Patient: Total time spent is greater than 50% in coordination of care (as documented) at patient's floor/unit and/or counseling patient: Coding Level of Care Code 78893 SUB INP/OBS CARE 2/35MIN Diagnoses Popliteal artery occlusion, left I70.202 Aneurysm of left popliteal artery I72.4 Chronic anticoagulation Z79.01 PVD (peripheral vascular disease) I73.9 Type 2 diabetes mellitus with microalbuminuria, without long-term current use of insulin E11.29; R80.9 Dyslipidemia E78.5 Primary hypertension I10
[2024-02-27 23:06] LABS: Basophils # (auto) 0.02 K/uL (0.00-0.20); Basophils % (auto) 0.2 %; Eosinophils # (auto) 0.04 K/uL (0.00-0.50); Eosinophils % (auto) 0.4 %; Hematocrit (blood only) 38.7 % (42.0-52.0); Hemoglobin 12.8 g/dl (14.0-18.0); Immature Granulocytes # (auto) 0.03 K/uL (0.01-0.20); Immature Granulocytes % (auto) 0.3 %; Lymphocytes # (auto) 1.32 K/uL (1.20-3.40); Lymphocytes % (auto) 14.4 %; Mean Corpuscular Hemoglobin 29.4 pg (25.0-34.0); Mean Corpuscular Hgb Conc 33.1 g/dL (32.0-36.0); Mean Corpuscular Volume 88.8 fL (80.0-100.0); Mean Platelet Volume 9.5 fL (9.4-12.4); Monocytes # (auto) 0.69 K/uL (0.11-0.59); Monocytes % (auto) 7.5 %; Neutrophils # (auto) 7.07 K/uL (1.40-6.50); Neutrophils % (auto) 77.2 %; Platelet Count 140 K/uL (130-400); RDW Coefficient of Variation 13.6 % (11.5-14.5); Red Blood Count 4.36 M/uL (4.70-6.10); White Blood Count 9.17 K/ul (4.8-10.8)
[2024-02-28 00:59] LABS: Partial Thromboplastin Ratio 1.7; Partial Thromboplastin Time 45 Seconds (21-31)
[2024-02-28 01:02] LABS: Fibrinogen 108 mg/dl (184-400)
[2024-02-28] MEDS ORDERED: Nursing to Pharmacy Communication SCH (03:00)
[2024-02-28] MEDS: RECOMBINANT IV SCH (03:19)
[2024-02-28] MEDS: ALTEPLASE IV SCH (03:19)
[2024-02-28] MEDS: SODIUM CHLORIDE 0.9% IV SCH (03:19)
[2024-02-28] MEDS ORDERED: SODIUM CHLORIDE 0.9% IV SCH (05:53)
[2024-02-28] MEDS ORDERED: HEPARIN SODIUM/DEXTROSE 25,000 UNIT/500 ML BAG IV SCH (05:53)
[2024-02-28] MEDS ORDERED: RECOMBINANT IV SCH (05:53)
[2024-02-28] MEDS ORDERED: ALTEPLASE IV SCH (05:53)
--- NOTE | 2024-02-28 07:56 | Critical Care Progress Note ---
Date of Service February 28, 2024 Assessment & Plan (1) Popliteal artery occlusion, left: Plan: Continuous infusion of heparin and tPA -Tentatively planning return to OR for removal of device with vascular surgery Admission and Anticipated Discharge Date Admission Date: February 23, 2024 Subjective Patient reports significant improvement in pain, currently 0 out of 10. Feels significantly better than yesterday with regards to the left lower extremity. Physical Exam Physical Exam: General: Alert. nontoxic. Skin: Warm, dry, Head: Atraumatic Ears, nose, mouth and throat: airway patent Cardiovascular: Normal sinus rhythm on bedside monitor Groin: Indwelling catheter in place Respiratory: no respiratory distress Gastrointestinal: Non distended Musculoskeletal: Normal capillary refill of the left lower extremity, warm, palpable pulses Results & Data Results & Data Vital Signs (Past 12 Hours) Vital Signs Pulse Resp BP Pulse Ox O2 Del Method O2 Flow Rate 02/28/24 06:12 79 14 95 02/28/24 06:00 109/65 02/28/24 05:54 81 12 96 02/28/24 05:06 83 14 95 02/28/24 05:00 121/66 02/28/24 04:30 93 H 14 93 02/28/24 04:00 26 H 90 02/28/24 03:00 75 25 H 98 02/28/24 03:00 141/67 H 02/28/24 03:00 141/67 H 02/28/24 03:00 141/67 H 02/28/24 03:00 141/67 H 02/28/24 03:00 141/67 H 02/28/24 02:06 81 51 H 96 02/28/24 02:00 122/66 02/28/24 01:57 74 28 H 98 02/28/24 01:00 83 12 93 02/28/24 01:00 145/73 H 02/28/24 01:00 145/73 H 02/28/24 00:03 85 18 97 02/28/24 00:00 133/78 02/27/24 23:48 85 18 98 02/27/24 23:00 85 17 99 02/27/24 23:00 143/73 H 02/27/24 23:00 143/73 H 02/27/24 22:01 136/80 02/27/24 22:01 136/80 02/27/24 22:00 62 21 96 02/27/24 21:30 101 H 17 98 02/27/24 21:00 169/94 H 02/27/24 21:00 169/94 H 02/27/24 20:33 91 H 19 92 02/27/24 20:12 81 16 98 02/27/24 20:00 Nasal Cannula 2 Critical Care Results & Data Vital Signs (Past 12 Hours) Vital Signs Pulse Resp BP Pulse Ox O2 Del Method O2 Flow Rate 02/28/24 06:12 79 14 95 02/28/24 06:00 109/65 02/28/24 05:54 81 12 96 02/28/24 05:06 83 14 95 02/28/24 05:00 121/66 02/28/24 04:30 93 H 14 93 02/28/24 04:00 26 H 90 02/28/24 03:00 75 25 H 98 02/28/24 03:00 141/67 H 02/28/24 03:00 141/67 H 02/28/24 03:00 141/67 H 02/28/24 03:00 141/67 H 02/28/24 03:00 141/67 H 02/28/24 02:06 81 51 H 96 02/28/24 02:00 122/66 02/28/24 01:57 74 28 H 98 02/28/24 01:00 83 12 93 02/28/24 01:00 145/73 H 02/28/24 01:00 145/73 H 02/28/24 00:03 85 18 97 02/28/24 00:00 133/78 02/27/24 23:48 85 18 98 02/27/24 23:00 85 17 99 02/27/24 23:00 143/73 H 02/27/24 23:00 143/73 H 02/27/24 22:01 136/80 02/27/24 22:01 136/80 02/27/24 22:00 62 21 96 02/27/24 21:30 101 H 17 98 02/27/24 21:00 169/94 H 02/27/24 21:00 169/94 H 02/27/24 20:33 91 H 19 92 02/27/24 20:12 81 16 98 02/27/24 20:00 Nasal Cannula 2 Lab & Micro Results (Past 24 Hours) RBC 4.36 M/uL (4.70-6.10) L 02/27/24 WBC 9.17 K/ul (4.8-10.8) 02/27/24 Hgb 12.8 g/dl (14.0-18.0) L 02/27/24 Hct 38.7 % (42.0-52.0) L 02/27/24 MCV 88.8 fL (80.0-100.0) 02/27/24 MCH 29.4 pg (25.0-34.0) 02/27/24 MCHC 33.1 g/dL (32.0-36.0) 02/27/24 RDW Standard Deviation 44.0 fL (36.4-46.3) 02/27/24 RDW Coefficient of Variation 13.6 % (11.5-14.5) 02/27/24 Plt Count 140 K/uL (130-400) 02/27/24 MPV 9.5 fL (9.4-12.4) 02/27/24 Neutrophils (%) (Auto) 77.2 % 02/27/24 Lymphocytes (%) (Auto) 14.4 % 02/27/24 Monocytes # (Auto) 0.69 K/uL (0.11-0.59) H 02/27/24 Eosinophils # (Auto) 0.04 K/uL (0.00-0.50) 02/27/24 Immature Granulocyte % (Auto) 0.3 % 02/27/24 Neutrophils # (Auto) 7.07 K/uL (1.40-6.50) H 02/27/24 Lymphocytes # (Auto) 1.32 K/uL (1.20-3.40) 02/27/24 Monocytes # (Auto) 0.69 K/uL (0.11-0.59) H 02/27/24 Eosinophils # (Auto) 0.04 K/uL (0.00-0.50) 02/27/24 Basophils # (Auto) 0.02 K/uL (0.00-0.20) 02/27/24 Immature Granulocyte # (Auto) 0.03 K/uL (0.01-0.20) 4 No Data to Display No Data to Display I & O Totals 24 Hours 02/27/24 02/28/2402/28/24 06:59 06:59 06:59 Intake Total 1450.833 / 8953.529 6540.5 / 1206.5 199.773 / 199.773 Output Total 600 / 600 900 / 900 Balance 850.833 / 850.833 306.5 / 306.5 199.773 / 199.773 Cumulative 02/23/24 09:13 thru 02/28/24 07:12 Intake Total 5044.829 Output Total 4075 Balance 969.829 RT Ventilator Mngmt (Last Documented) Ventilator Ordered Settings Respiratory Rate 14 02/28/24 06:12 Ventilator - PT Measurements Respiratory Rate 14 Coding Level of Care Code 07309 SUB INP/OBS CARE 06/22MIN Diagnoses Popliteal artery occlusion, left I70.202
[2024-02-28 08:00] LABS: Basophils # (auto) 0.04 K/uL (0.00-0.20); Basophils % (auto) 0.5 %; Eosinophils # (auto) 0.11 K/uL (0.00-0.50); Eosinophils % (auto) 1.3 %; Hematocrit (blood only) 37.3 % (42.0-52.0); Hemoglobin 12.3 g/dl (14.0-18.0); Immature Granulocytes # (auto) 0.03 K/uL (0.01-0.20); Immature Granulocytes % (auto) 0.4 %; Lymphocytes # (auto) 1.75 K/uL (1.20-3.40); Lymphocytes % (auto) 20.9 %; Mean Corpuscular Hemoglobin 29.7 pg (25.0-34.0); Mean Corpuscular Volume 90.1 fL (80.0-100.0); Mean Platelet Volume 9.1 fL (9.4-12.4); Monocytes # (auto) 0.73 K/uL (0.11-0.59); Monocytes % (auto) 8.7 %; Neutrophils # (auto) 5.71 K/uL (1.40-6.50); Neutrophils % (auto) 68.2 %; Platelet Count 141 K/uL (130-400); RDW Coefficient of Variation 13.7 % (11.5-14.5); RDW Standard Deviation 44.6 fL (36.4-46.3); Red Blood Count 4.14 M/uL (4.70-6.10); White Blood Count 8.37 K/ul (4.8-10.8)
[2024-02-28 08:39] LABS: Partial Thromboplastin Ratio 4.5
[2024-02-28 08:42] LABS: Partial Thromboplastin Time 121 Seconds (21-31)
[2024-02-28 09:01] LABS: Fibrinogen 118 mg/dl (184-400)
--- NOTE | 2024-02-28 09:58 | History & Physical Bridge Note ---
Date of Service February 28, 2024 History & Physical Bridge Note Patient for recheck for tpa and possible intervention today. I have discussed the risks options and benefits of the procedure with the patient. The patient understands the risks options and benefits and agrees to the procedure. I have examined the patient, reviewed the History & Physical and in the interval since the performance of the History & Physical I have noted the following changes of clinical significance: no changes noted
[2024-02-28] MEDS: ceFAZolin 330 MG/ML 1 GM VIAL ONE (11:06)
--- NOTE | 2024-02-28 11:06 | Pre Anesthesia Assessment ---
Date of Service February 28, 2024 Pre Sedation Assessment Vital Signs Temp Pulse Pulse Pulse Resp BP BP 02/28/24 11:00 80 16 108/67 02/28/24 09:50 37.2 C 80 18 119/97 02/28/24 09:06 02/28/24 09:05 36.9 C 02/28/24 09:03 22 02/28/24 09:00 120/66 02/28/24 08:45 78 19 02/28/24 08:12 83 15 02/28/24 08:00 129/67 02/28/24 08:00 129/67 02/28/24 07:54 89 13 02/28/24 07:21 83 26 H 02/28/24 07:01 110/68 02/28/24 06:57 81 21 02/28/24 06:12 79 14 02/28/24 06:00 109/65 02/28/24 05:54 81 12 02/28/24 05:06 83 14 02/28/24 05:00 121/66 02/28/24 04:30 93 H 14 02/28/24 04:00 26 H 02/28/24 03:00 75 25 H 02/28/24 03:00 141/67 H 02/28/24 03:00 141/67 H 02/28/24 03:00 141/67 H 02/28/24 03:00 141/67 H 02/28/24 03:00 141/67 H 02/28/24 02:06 81 51 H 02/28/24 02:00 122/66 02/28/24 01:57 74 28 H 02/28/24 01:00 83 12 02/28/24 01:00 145/73 H 02/28/24 01:00 145/73 H 02/28/24 00:03 85 18 02/28/24 00:00 133/78 02/27/24 23:48 85 18 02/27/24 23:00 85 17 02/27/24 23:00 143/73 H 02/27/24 23:00 143/73 H 02/27/24 22:01 136/80 02/27/24 22:01 136/80 02/27/24 22:00 62 21 02/27/24 21:30 101 H 17 02/27/24 21:00 169/94 H 02/27/24 21:00 169/94 H 02/27/24 20:33 91 H 19 02/27/24 20:12 81 16 02/27/24 20:00 02/27/24 19:30 70 17 02/27/24 19:01 107/84 02/27/24 19:00 85 19 02/27/24 18:00 96 H 16 138/75 02/27/24 17:07 78 14 178/95 H 02/27/24 16:34 37.1 C 96 H 22 156/97 H 02/27/24 15:40 91 H 16 170/91 H 02/27/24 15:10 178/101 H 02/27/24 15:09 102 H 19 02/27/24 15:00 99 H 26 H 02/27/24 15:00 180/96 H 02/27/24 14:51 81 16 02/27/24 14:00 81 19 02/27/24 14:00 106/70 02/27/24 13:09 87 17 02/27/24 13:01 131/81 02/27/24 12:57 74 21 02/27/24 12:36 36.6 C 02/27/24 12:03 76 19 02/27/24 12:01 138/83 02/27/24 11:54 82 20 Pulse Ox O2 Del Method O2 Flow Rate 02/28/24 11:00 99 Oxymask 4 02/28/24 09:50 99 Nasal Cannula 2 02/28/24 09:06 Nasal Cannula 2 02/28/24 09:05 02/28/24 09:03 94 02/28/24 09:00 02/28/24 08:45 96 02/28/24 08:12 98 02/28/24 08:00 02/28/24 08:00 02/28/24 07:54 98 02/28/24 07:21 98 02/28/24 07:01 02/28/24 06:57 98 02/28/24 06:12 95 02/28/24 06:00 02/28/24 05:54 96 02/28/24 05:06 95 02/28/24 05:00 02/28/24 04:30 93 02/28/24 04:00 90 02/28/24 03:00 98 02/28/24 03:00 02/28/24 03:00 02/28/24 03:00 02/28/24 03:00 02/28/24 03:00 02/28/24 02:06 96 02/28/24 02:00 02/28/24 01:57 98 02/28/24 01:00 93 02/28/24 01:00 02/28/24 01:00 02/28/24 00:03 97 02/28/24 00:00 02/27/24 23:48 98 02/27/24 23:00 99 02/27/24 23:00 02/27/24 23:00 02/27/24 22:01 02/27/24 22:01 02/27/24 22:00 96 02/27/24 21:30 98 02/27/24 21:00 02/27/24 21:00 02/27/24 20:33 92 02/27/24 20:12 98 02/27/24 20:00 Nasal Cannula 2 02/27/24 19:30 92 02/27/24 19:01 02/27/24 19:00 94 02/27/24 18:00 95 Room Air 02/27/24 17:07 95 Room Air 02/27/24 16:34 96 Room Air 02/27/24 15:40 95 Room Air 02/27/24 15:10 02/27/24 15:09 94 02/27/24 15:00 95 02/27/24 15:00 02/27/24 14:51 95 02/27/24 14:00 98 02/27/24 14:00 02/27/24 13:09 96 02/27/24 13:01 02/27/24 12:57 94 02/27/24 12:36 02/27/24 12:03 95 02/27/24 12:01 02/27/24 11:54 96 Cardiovascular RRR, no murmur, no edema Respiratory normal respiratory effort, lungs clear to auscultation Pre-Sedation Airway Assessment Smoking Status: Never smoker Hx Sleep Apnea: No Short, Thick Neck: No Thyromental Distance: > or= 3.5 Finger Breadths Oral Cavity: + WNL Mallampati Class: III ASA: ASA3 NPO Status Date of Last Intake of Fluids: 02/27/24 Time of Last Intake of Fluids: 23:59 Date of Last Intake of Solid Food: 02/27/24 Time of Last Intake of Solid Foods: 23:59 Procedure Planning Contraindications for Sedation: none Current Medications Reviewed: No Notes The planned sedation has been discussed with the patient. Informed Consent was obtained. I have identified the patient, determined the appropriateness of sedation and have assessed the patient immediately prior to the procedure. All medicine(s) and interventions are by my order.
[2024-02-28] MEDS: fentaNYL citrate PF 100 MCG/2 ML VIAL ONE (11:38)
[2024-02-28] MEDS: MIDAZOLAM HCL 1 MG/ML 2ML VIAL ONE (11:39)
--- NOTE | 2024-02-28 11:56 | Post Operative Brief Note ---
Immediate Post Op Note Date of Surgery February 28, 2024 Pre & Post Diagnosis Operation Date: 02/28/24 10:50 Pre-Op Diagnosis: Left Popliteal Artery Occlusion Post-Op Diagnosis: Left Popliteal Artery Occlusion I identified the patient and participated in the time-out.: Yes Procedure Operation Date: 02/28/24 10:50 Actual Procedures p TPA recheck and Completion, Percutaneous Transluminal Angioplasty and Stenting of Left Popliteal Artery, Moderate Sedation 1110-(Right) - Jair Pavon MD Surgeon Jair Pavon MD Control Systems Technician MD Cassi Estimated Blood Loss 10 Findings Consistent with Post-Op Diagnosis Anesthesia Type RN Sedation Complications none Disposition Accompanied Patient To Recovery: No Disposition: Recovery Room
[2024-02-28] MEDS: VISIPAQUE IV PRN (12:04)
--- NOTE | 2024-02-28 12:12 | Operative Report ---
Post Operative Report Pre & Post Diagnosis Operation Date: 02/28/24 10:50 Pre-Op Diagnosis: Left Popliteal Artery Occlusion Post-Op Diagnosis: Left Popliteal Artery Occlusion I identified the patient and participated in the time-out.: Yes Procedure Operation Date: 02/28/24 10:50 Actual Procedures p TPA recheck and Completion, Percutaneous Transluminal Angioplasty and Stenting of Left Popliteal Artery, Moderate Sedation [id number](Right) - Jair Pavon MD Surgeon Jair Pavon MD Solar Mechanical Engineer Jose Moody MD Estimated Blood Loss 10 Findings Consistent with Post-Op Diagnosis Following lysis catheter infusion, patient with recanalization of the SFA and popliteal artery. There was some residual stenosis within the former popliteal artery stent. Following stent placement, inline flow through stent with three vessel runoff to the foot. Specimens None Anesthesia Type MAC Complications None Disposition Accompanied Patient To Recovery: No Indications Occlusion of left SFA and popliteal artery stent with Saundra 1 acute limb ischemia Description of Procedure The patient was taken to the operating room and placed in a supine position. Pre-operative antibiotics, 2g Ancef, were administered and conscious sedation was given, 1mg Versed and 50mcg Fentanyl. The right and left groin were prepped and draped in the usual sterile fashion. The 8Fr 65cm sheath in the right groin from the prior procedure was flushed. The lysis catheter was removed under fluoroscopic guidance. An angiogram was taken showing recanalization of the SFA and popliteal artery with 50% residual stenosis in the popliteal stent with three vessel runoff to the foot. The length of the prior stented segment was then re-linned with a 10mm x 15cm and 10mm x 10cm Viabahn stent. Completion angiogram showed good runoff through the foot, unchanged. The sheath was removed. Hemostasis was obtained with pressure held. PT and DP signals were confirmed. The patient was transferred to the PACU in stable condition. Dr. Pavon was present and scrubbed for the entire procedure. I attest to the content of the Intraoperative Record and any orders documented therein. Any exceptions are noted below. Supervising Physician Co-Signing Physician Notes Jair Pavon MD
--- NOTE | 2024-02-28 12:35 | Hospitalist Progress Note ---
<Statement entered by Carmela Morocho MD - 02/28/24 17:50> I have reviewed vital signs, chart notes, labs and imaging. I have personally seen, evaluated and examined the patient. I have also discussed the management of the patient with the JAIMIE and I agree with the exam findings documented in the history and physical examination and the documented assessment and plan unless otherwise stated below. I saw Rhett prior to his procedure today, he reports that his left lower leg pain pallor and pulselessness spontaneously resolved in the middle of the night he feels much better. on my exam he has good color in his left lower leg which is now pink and warm, popliteal DP and PT pulses are now palpable. Right groin sheath/access site appears to be intact without swelling though covered with surgical dressing. Later today he underwent repeat angiogram which showed resolution of his thrombosis and popliteal stent was placed by Dr. Pavon. tPA and heparin drip have been discontinued he will resume Xarelto and Plavix in the morning Date of Service February 28, 2024 Assessment & Plan (1) Popliteal artery occlusion, left: Plan: Acute occlusion left popliteal artery. He previously underwent endovascular repair of a left popliteal artery aneurysm with stent placement in 09/2017, followed by stent thrombosis in 03/2018 requiring thrombectomy & repeat stent placement. All prior procedures were performed by Dr Jair Pavon, [facility]. He had been off his Xarelto & Plavix prior to an outpatient colonoscopy on 02/19/24. Unfortunately, while off his anticoagulation & antiplatelet therapy, he likely occluded the popliteal artery stents sometime during that timeframe. underwent left lower extremity angiogram 02/[address] Pavon, he is being treated with continuation of heparin drip as well as intraarterial tPA. Reassess 02/27, angioplasty completed. Pt with recanalization of SFA and popliteal artery. * Restart Xarelto and Plavix in AM * cont heparin infusion * pain control with morphine IV prn or norco PO prn * continue statin Increased left leg pain, increased paleness and loss of DP/PT pulse by Doppler were discussed with Dr. Pavon 02/26 by ICU nursing staff - advised continuing current treatment continue pain control as this evolution to be expected during treatment with tPA 02/27 DP pulse by Doppler was identified and palpable. PT palpable. Popliteal palpable. 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 (3) Chronic anticoagulation: Plan: HOLD Xarelto 10mg daily & Plavix 75mg daily. Cont heparin infusion (4) PVD (peripheral vascular disease): Plan: Known PAD of his legs. Follows with Dr Pavon, [facility]. see above. (5) Type 2 diabetes mellitus with microalbuminuria, without long-term current use of insulin: Plan: HOLD metformin hemoglobin a1c 7.2% BSGs well-controlled DM diet Loose novolog SSI - reviewed blood glucoses today, at goal (6) Dyslipidemia: Plan: Cont statin LDL was 29 early in 2023 on last lipid profile check (7) Primary hypertension: Plan: hold ARB Plan his son was at the bedside for update Admission and Anticipated Discharge Date Admission Date: February 23, 2024 Subjective Patient laying in bed at time of visit, his son is in the room at the time of visit. Symptoms have improved, pain has decreased. Patient to have angioplasty completed today. DP pulse palpable and dopplerable, PT pulses palpable. Physical Exam Musculoskeletal: Left leg slightly pallor, color returning below mid weiss, temperature of legs equal and warm. Doppler able to identify DP pulse, popliteal pulse palpated. Vascular access sheath in right groin covered by large surgical dressing. Right lower extremity warm, well-perfused. Results & Data Results & Data Vital Signs (Past 12 Hours) Vital Signs Temp Pulse Pulse Resp BP BP Pulse Ox 02/28/24 12:25 90 16 102/75 98 02/28/24 12:20 95 H 16 123/80 97 02/28/24 12:15 92 H 16 139/83 98 02/28/24 12:10 101 H 16 118/82 99 02/28/24 12:05 103 H 16 119/85 99 02/28/24 12:00 96 H 16 110/72 99 02/28/24 11:55 97 H 16 101/72 98 02/28/24 11:50 91 H 16 101/65 98 02/28/24 11:45 89 16 108/65 100 02/28/24 11:40 94 H 16 103/77 98 02/28/24 11:35 92 H 16 114/72 99 02/28/24 11:30 93 H 16 109/68 99 02/28/24 11:25 80 16 114/73 99 02/28/24 11:20 86 16 112/62 98 02/28/24 11:15 85 16 106/59 L 98 02/28/24 11:10 89 16 119/64 98 02/28/24 11:00 80 16 108/67 99 02/28/24 09:50 37.2 C 80 18 119/97 99 02/28/24 09:06 02/28/24 09:05 36.9 C 02/28/24 09:03 22 94 02/28/24 09:00 120/66 02/28/24 08:45 78 19 96 02/28/24 08:12 83 15 98 02/28/24 08:00 129/67 02/28/24 08:00 129/67 02/28/24 07:54 89 13 98 02/28/24 07:21 83 26 H 98 02/28/24 07:01 110/68 02/28/24 06:57 81 21 98 02/28/24 06:12 79 14 95 02/28/24 06:00 109/65 02/28/24 05:54 81 12 96 02/28/24 05:06 83 14 95 02/28/24 05:00 121/66 02/28/24 04:30 93 H 14 93 02/28/24 04:00 26 H 90 02/28/24 03:00 75 25 H 98 02/28/24 03:00 141/67 H 02/28/24 03:00 141/67 H 02/28/24 03:00 141/67 H 02/28/24 03:00 141/67 H 02/28/24 03:00 141/67 H 02/28/24 02:06 81 51 H 96 02/28/24 02:00 122/66 02/28/24 01:57 74 28 H 98 02/28/24 01:00 83 12 93 02/28/24 01:00 145/73 H 02/28/24 01:00 145/73 H O2 Del Method O2 Flow Rate 02/28/24 12:25 Oxymask 4 02/28/24 12:20 Oxymask 4 02/28/24 12:15 Oxymask 4 02/28/24 12:10 Oxymask 4 02/28/24 12:05 Oxymask 4 02/28/24 12:00 Oxymask 4 02/28/24 11:55 Oxymask 4 02/28/24 11:50 Oxymask 4 02/28/24 11:45 Oxymask 4 02/28/24 11:40 Oxymask 4 02/28/24 11:35 Oxymask 4 02/28/24 11:30 Oxymask 4 02/28/24 11:25 Oxymask 4 02/28/24 11:20 Oxymask 4 02/28/24 11:15 Oxymask 4 02/28/24 11:10 Oxymask 4 02/28/24 11:00 Oxymask 4 02/28/24 09:50 Nasal Cannula 2 02/28/24 09:06 Nasal Cannula 2 02/28/24 09:05 02/28/24 09:03 02/28/24 09:00 02/28/24 08:45 02/28/24 08:12 02/28/24 08:00 02/28/24 08:00 02/28/24 07:54 02/28/24 07:21 02/28/24 07:01 02/28/24 06:57 02/28/24 06:12 02/28/24 06:00 02/28/24 05:54 02/28/24 05:06 02/28/24 05:00 02/28/24 04:30 02/28/24 04:00 02/28/24 03:00 02/28/24 03:00 02/28/24 03:00 02/28/24 03:00 02/28/24 03:00 02/28/24 03:00 02/28/24 02:06 02/28/24 02:00 02/28/24 01:57 02/28/24 01:00 02/28/24 01:00 02/28/24 01:00 PG Care Time/CCT Total # of Minutes Spent Total Time Spent with Patient: Total time spent is greater than 50% in coordination of care (as documented) at patient's floor/unit and/or counseling patient: Coding Level of Care Code None Diagnoses Popliteal artery occlusion, left I70.202 Aneurysm of left popliteal artery I72.4 Chronic anticoagulation Z79.01 PVD (peripheral vascular disease) I73.9 Type 2 diabetes mellitus with microalbuminuria, without long-term current use of insulin E11.29; R80.9 Dyslipidemia E78.5 Primary hypertension I10
[2024-02-28] MEDS: LIDOCAINE 1% LOCAL 20 ML VIAL ONE (13:04)
[2024-02-28] MEDS: CLOPIDOGREL BISULFATE 300 MG TAB PO STA (13:30)
[2024-02-28] MEDS: SODIUM CHLORIDE 0.9% 1,000 ML IV SCH (13:30)
--- NOTE | 2024-02-28 17:50 | Billing Data ---
Date of Service February 28, 2024 Coding Level of Care Code 60414 SUB INP/OBS CARE
[2024-02-29 08:03] VITALS: RESP 16
[2024-02-29] MEDS: CLOPIDOGREL BISULFATE 75 MG TAB PO SCH (10:15)
[2024-02-29] MEDS: RIVAROXABAN 10 MG TABLET PO SCH (10:15)
[2024-02-29 14:53] VITALS: BP 136/68; TEMP 98.4; O2SAT 95
--- NOTE | 2024-02-29 15:16 | Discharge Summary ---
<Statement entered by Carmela Morocho MD - 02/29/24 18:29> I have reviewed vital signs, chart notes, labs and imaging. I have personally seen, evaluated and examined the patient. I have also discussed the management of the patient with the JAIMIE and I agree with the exam findings documented in the history and physical examination and the documented assessment and plan unless otherwise stated below. 83-year-old man with peripheral arterial disease presented with a left popliteal artery thrombosis after holding Xarelto and Plavix for a colonoscopy. This colonoscopy was completed and was unremarkable per the patient. Underwent angiogram by Dr. Pavon and treatment with intra-arterial thrombolysis which was successful, there was a residual stenosis within the previous popliteal stent and no new stent was placed. He had good result with yarsanism of blood flow in right resolution of ischemia. He will continue on Xarelto and Plavix and follow-up with Dr. Pavon in clinic on my exam today he is awake alert oriented x 4 left leg is warm well-perfused with good color and good capillary refill, DP and PT pulses are palpable Discharge Summary Date of Service February 29, 2024 Principal Dx & Hospital Course #1 = Principal Diagnosis (1) Popliteal artery occlusion, left: Acute occlusion left popliteal artery He previously underwent endovascular repair of a left popliteal artery aneurysm with stent placement in 09/2017, followed by stent thrombosis in 03/2018 requiring thrombectomy & repeat stent placement. All prior procedures were performed by Dr Jair Pavon, [facility]. He had been off his Xarelto & Plavix prior to an outpatient colonoscopy on 02/19/24. While off his anticoagulation & antiplatelet therapy, he occluded the popliteal artery stents sometime during that timeframe. Underwent left lower extremity angiogram 02/[address] Pavon, was being treated with continuation of heparin drip as well as intraarterial tPA. Reassessed 02/27, angioplasty completed. Pt with recanalization of SFA and popliteal artery. * Restarted Xarelto and Plavix * Heparin infusion discontinued * pain control was maintained with morphine IV prn or norco PO prn * continue statin * All symptoms have resolved, Dopplers reassuring 02/26 Increased left leg pain, increased paleness and loss of DP/PT pulse by Doppler were discussed with Dr. Pavon by ICU nursing staff - Was advised to continue treatment along with pain control as the symptoms were to be expected during treatment with tPA 02/27 DP pulse by Doppler was identified and palpable. PT palpable. Popliteal palpable. (2) Aneurysm of left popliteal artery: Diagnosed 2017, s/p initial stent placement by Dr Pavon 09/2017. (3) Chronic anticoagulation: Continue Xarelto 10mg daily & Plavix 75mg daily. Discontinued heparin infusion (4) PVD (peripheral vascular disease): Known PAD of his legs. Follows with Dr Pavon, [facility]. see above. (5) Type 2 diabetes mellitus with microalbuminuria, without long-term current use of insulin: May continue metformin at discharge hemoglobin a1c 7.2% BSGs well-controlled DM diet Loose novolog SSI - reviewed blood glucoses, at goal (6) Dyslipidemia: Cont statin LDL was 29 early in 2023 on last lipid profile check (7) Primary hypertension: Continue ARB following discharge Notes For Next Care Provider Patient has been restarted on Plavix and Xarelto. Please follow-up in approximately 1 week following discharge. Admission HPI Per Admitting Provider 83yo male with known PAD of the LLE. His history goes back to September 2017 when he underwent endovascular repair of a left popliteal artery aneurysm by Dr Jair Pavon. Stents were placed at that time for the aneurysm. Then, in March 2018, he developed thrombosis of the left popliteal artery stents. This required thrombectomy with repeat overlapping stent placement. In addition he has T2DM, HTN, GERD, and hyperlipidemia. Mr Mejia now presents with left leg pain beginning early Monday am of this week. Patient reports that he underwent colonoscopy on 02/19/24 and had been off his plavix & Xarelto for several days prior to the procedure (2 days for Xarelto, 5 days for plavix). 6 polyps were removed during the colonoscopy. As instructed he resumed his Xarelto and plavix on 02/20/24. Patient reports that the pain was in the left leg below the knee. Pain was mostly anterior as opposed to posterior. He never had pain in the popliteal fossa region or thigh. About the same time he did have some mild numbness and tingling in the left foot. All symptoms of the left leg/foot gradually improved over the next 2-3 days. He did call Dr Pavon's office on , 02/22/24 and was encouraged to seek out medical attention in the ER. He finally presented to [facility] ER today for evaluation. During my admission assessment he reports that he has NO rest pain of the left thigh, left lower extremity below the knee, or the foot itself. Sensation is normal and the previous tingling of the left foot has resolved. He does have some mild pain of the left calf/left weiss region with walking, however. He did take his Xarelto & plavix this morning before coming to the ER. Admission Exam Per Admitting Provider gen - NAD, pleasant eyes - lens implants b/l, PERRL mouth - MMM, no lesions neck - no JVD, no lymph nodes, no thyroid masses heart - RRR, s1 s2, no murmur lungs - CTA b/l abd - soft NT ND BS+, no HSM ext - no edema vascular - right popliteal pulse 2+, left popliteal pulse 0; left DP and post tib pulses 0; right DP and post tib pulses 1-2+; cap refill right foot <2 sec; cap refill left foot toes prolonged - 4-5+ seconds; toes left foot mildly dusky; no gangrene or necrotic areas of left foot; with a bedside doppler I was able to doppler his left DP pulse and, to a much lesser extent, his left posterior tib pulse musculo - no joint effusions any joint upper or lower extremity neuro - strength 5/5 x 4 exts skin - mild duskiness to all toes, especially the great toe, on left foot; mild erythematous patch anterior left knee region Discharge Exam Constitutional WD/WN, vitals as above Eyes PERRL, conjunctivae normal, anicteric sclerae ENMT external ear and nose normal, oropharynx normal Respiratory normal respiratory effort, lungs clear to auscultation Cardiovascular RRR, no murmur, no edema Gastrointestinal (Abdomen) normal bowel sounds, soft, nontender, no hepatosplenomegaly Musculoskeletal Bilateral lower extremities with palpable peripheral pulses at DP, PT, and popliteal areas. Color symmetrical in LE, both LE warm and well-perfused. Psychiatric Orientation: alert and oriented x 3 Discharge Plan Discharge Items Patient Disposition: Home - Self-Care Reason For Visit: LEFT LEG ISCHEMIA, OCCLUDED POPLITEAL ARTERY STENT Discharge Diagnosis: Left, Popliteal Artery Occlusion PAD Activity: Resume your previous activity Non-emergency contact: Primary Care Provider Call non-emergency contact if: you have any medication questions, your symptoms worsen, your pain is not controlled, your pain is worsening, your pain is unusual for you and your pain is concerning for you Follow-up/Referrals: Keira Grady MD [Primary Care Provider] - 03/12/24 3:00 pm Diet: Carb Consistent or DM2 Addtl Attending Provider Instructions: You were diagnosed and treated for occlusion of the left popliteal artery (vessel at left knee). Initially, you were held from your blood thinners to include Plavix and Xarelto to prepare for a colonoscopy. A heparin drip was started prior to your initial procedure in order to help minimize the size of the clot. Unfortunately, your symptoms did not improve as hoped and blood flow to your lower extremity was difficult to obtain. The procedure completed 02/26 consisted of insertion of a catheter and infusion of a clot breaking agent (tPA). On 02/27 the second procedure was completed involving stenting of the left popliteal artery. This procedure was able to resolve your symptoms and break up the previously existing clot. Your blood thinning medications were restarted. Please continue these medications as prescribed. We recommend following up with your PCP within a week to discuss your recent hospitalization. If symptoms return, your extremity feels cool or looks pale compared to the other, you develop extreme pain, or you are concerned of recurrence please call PCP for advice, or return to ED. Pending Studies at Discharge: No Stand-Alone Forms: My [facility], Smoking Cessation Medications and DC Order Prescriptions: Continued metformin 500 mg tablet See Rx Instructions PO DAILY Qty: 270 3RF Rx Instructions: Take orally 500mg in the morning, 1000mg in the evening daily; triamcinolone acetonide 0.1 % cream 1 applic topical DAILY (DME) OneTouch Verio test strips Strip See Rx Instructions .Route Qty: 100 3RF Rx Instructions: use to test sugar twice daily (DME) blood-glucose meter [OneTouch Verio Meter] Mis See Rx Instructions .Route Qty: 1 0RF Rx Instructions: use to test blood sugars twice daily (DME) lancets [OneTouch Delica Lancets] 33 gauge misc See Rx Instructions .Route Qty: 100 3RF Rx Instructions: use to test blood sugars twice daily olmesartan 5 mg tablet 5 mg PO QAM Qty: 90 3RF omeprazole 20 mg capsule,delayed release(DR/EC) 20 mg PO Q2D Qty: 45 3RF rosuvastatin 10 mg tablet 10 mg PO QAM Qty: 90 3RF clopidogrel 75 mg tablet 75 mg PO DAILY Qty: 90 3RF Xarelto 10 mg tablet 10 mg PO DAILY Qty: 30 11RF Rx Instructions: for 12 days Discharge Orders: Discharge Order (Routine); Ordered 02/29/24 Ordered By: Bonita Johnson/Other Patient Handouts: Managing Type 2 Diabetes Admission Data Admit Date/Time: 02/23/24 14:26 Attending Provider: Carmela Morocho Admit Provider: Amilcar Coughlin Primary Care Provider: Keira Grady Other Providers: Jair Pavon; Samir Lujan; Martin Crystal; Augusto Garcia; Saeid House; James Haywood; Abhijeet Meyer; Crystal Talamantes; Joey Willett; Raquel Bettencourt; Odalis Mckeon; Marquise Hernandez; Rhett Mcdonald; Ivory [facility] Stay Data Consultations 02/23/24 13:46 Consult Vascular Surgery Stat ED Decision to Admit Stat 02/27/24 10:36 Consult Quill Worker Routine Procedures Performed Operation Date: 02/28/24 10:50 Actual Procedures p TPA recheck and Completion, Percutaneous Transluminal Angioplasty and Stenting of Left Popliteal Artery, Moderate Sedation [id number](Right) - Jair Pavon MD Diagnostic Imagining Performed 02/23/24 09:48 US arterial duplex LE LT Stat US venous doppler LE LT Stat 02/27/24 07:04 EV angio LE LT Routine US EV guide vascular access Routine 02/28/24 10:31 Angio leg [EV angio LE LT] Routine Pending Results Patient Have Any Pending Studies at Discharge: No Discharge Instructions Given to Patient (Per Discharging Provider) You were diagnosed and treated for occlusion of the left popliteal artery (vessel at left knee). Initially, you were held from your blood thinners to include Plavix and Xarelto to prepare for a colonoscopy. A heparin drip was started prior to your initial procedure in order to help minimize the size of the clot. Unfortunately, your symptoms did not improve as hoped and blood flow to your lower extremity was difficult to obtain. The procedure completed 02/26 consisted of insertion of a catheter and infusion of a clot breaking agent (tPA). On 02/27 the second procedure was completed involving stenting of the left popliteal artery. This procedure was able to resolve your symptoms and break up the previously existing clot. Your blood thinning medications were restarted. Please continue these medications as prescribed. We recommend following up with your PCP within a week to discuss your recent hospitalization. If symptoms return, your extremity feels cool or looks pale compared to the other, you develop extreme pain, or you are concerned of recurrence please call PCP for advice, or return to ED. Total Time Total Time Spent Total Time Spent (In Minutes): 35 Coding Level of Care Code None Diagnoses Popliteal artery occlusion, left I70.202 Aneurysm of left popliteal artery I72.4 Chronic anticoagulation Z79.01 PVD (peripheral vascular disease) I73.9 Type 2 diabetes mellitus with microalbuminuria, without long-term current use of insulin E11.29; R80.9 Dyslipidemia E78.5 Primary hypertension I10
[2024-02-29 15:45] VITALS: PULSE 112
--- NOTE | 2024-02-29 18:29 | Billing Data ---
Date of Service February 29, 2024 Coding Level of Care Code 98780 IN/OBS DISCH 30 MIN/LESS
== END 2024-02-29 16:35 | disposition home or self-care (01) | DRG 253 ==
LOC: ED 09:13 → 2S 14:26 → SUATTDRO 14:26 → 2S 18:21 → 1E 02-27 09:40 → 3N 02-28 20:08